=== PATIENT | male | born 1955 | race American Indian/Alaskan Native ===

== ENCOUNTER 2017-10-02 22:12 | Emergency (ER) | payer MEDICAID ==
[2017-10-02 23:57] LABS: Hematocrit 35.6 % (35.5-45.6); Hemoglobin 12.1 gm/dl (11.8-15.2); Mean Corpuscular HGB Conc 34 % (32-34); Mean Corpuscular Hemoglobin 30 pg (28-32); Mean Corpuscular Volume 89 fl (84-94); Platelet Count 248 K/mm3 (140-440); Red Blood Count 3.99 M/mm3 (3.65-5.03); Red Cell Distribution Width 14.3 % (13.2-15.2)
[2017-10-03 00:49] LABS: BUN/Creatinine Ratio 9; Blood Urea Nitrogen 8 mg/dL (9-20); Calcium 9.9 mg/dL (8.4-10.2); Hemolysis Index 3
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
[2017-10-03 04:03] VITALS: BP 158/90
== END 2017-10-03 05:00 | disposition left against medical advice (07) ==
LOC: ED 22:12
DX: M54.2 Cervicalgia (principal); Z53.21 Procedure and treatment not carried out due to patient leaving prior to being seen by health care provider
CPT/HCPCS: 36415; 70450; 70486; 72125; 80048; 85027

== ENCOUNTER 2019-03-22 12:51 | Emergency (ER) | payer OTHER, MEDICAID ==
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
[2019-03-22 13:18] VITALS: BP 171/99
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
== END 2019-03-22 15:16 | disposition home or self-care (01) ==
LOC: ED 12:51
DX: S16.1XXA Strain of muscle, fascia and tendon at neck level, initial encounter (principal); S39.012A Strain of muscle, fascia and tendon of lower back, initial encounter; I10 Essential (primary) hypertension; G43.909 Migraine, unspecified, not intractable, without status migrainosus; Z86.73 Personal history of transient ischemic attack (TIA), and cerebral infarction without residual deficits; Z79.899 Other long term (current) drug therapy; V49.49XA Driver injured in collision with other motor vehicles in traffic accident, initial encounter; Y93.89 Activity, other specified; Y92.410 Unspecified street and highway as the place of occurrence of the external cause; Y99.8 Other external cause status
CPT/HCPCS: 72040; 72100

== ENCOUNTER 2021-01-26 12:04 | Inpatient (IN) | payer MEDICAID, OTHER ==
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
--- NOTE | 2021-01-26 13:02 | Cat Scan Report ---
CT HEAD WITHOUT CONTRAST INDICATION / CLINICAL INFORMATION: left sided weakness, slurred speech. TECHNIQUE: Axial imaging performed from the skull apex through the skull base without the use of cont rast. Sagittal and coronal reformatted images. All CT scans at this location are performed using CT dose reduction for ALARA by means of automated exposure control. COMPARISON: None available. FINDINGS: CEREBRAL PARENCHYMA: Chronic infarct in the left subinsular region measures 1.9 x 0.5 cm. Mild chroni c periventricular white matter changes are noted which are more pronounced on the left side. No acute parenchymal abnormality is appreciated. HEMORRHAGE: None. EXTRA-AXIAL SPACES: Normal in size and morphology for the patient's age. VENTRICULAR SYSTEM: Normal in size and morphology for the patient's age. MIDLINE SHIFT OR HERNIATION: None. CEREBELLUM / BRAINSTEM: No significant abnormality. CALVARIUM: No significant abnormality. ORBITS: Normal as visualized. PARANASAL SINUSES / MASTOID AIR CELLS: Normal as visualized. SOFT TISSUES of HEAD: No significant abnormality. ADDITIONAL FINDINGS: None. IMPRESSION: No acute intracranial abnormality. Chronic infarct in the left subinsular region as described. Signer Name: Chandrakant Mathis Jr, MD Signed: 01/26/2021 12:58 PM Workstation Name: [id number]
[2021-01-26 13:24] LABS: Basophils # (Auto) 0.1 K/mm3 (0.0-0.1); Basophils % (Auto) 0.6 % (0.0-1.8); Eosinophils % (Auto) 0.1 % (0.0-4.3); Hematocrit 28.1 % (35.5-45.6); Hemoglobin 9.1 gm/dl (11.8-15.2); Lymphocytes % (Auto) 6.2 % (13.4-35.0); Mean Corpuscular HGB Conc 32 % (32-34); Mean Corpuscular Volume 86 fl (84-94); Monocytes # (Auto) 1.6 K/mm3 (0.0-0.8); Monocytes % (Auto) 9.6 % (0.0-7.3); Platelet Count 626 K/mm3 (140-440); Red Blood Count 3.28 M/mm3 (3.65-5.03); Red Cell Distribution Width 14.7 % (13.2-15.2)
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
[2021-01-26] MEDS ORDERED: ASPIRIN 81 MG TAB CHEW PO ONE (13:31)
[2021-01-26 13:33] LABS: INR 1.22 (0.87-1.13)
[2021-01-26 13:34] LABS: Partial Thromboplastin Time 40.8 Sec. (24.2-36.6)
[2021-01-26 13:43] LABS: Alanine Aminotransferase 34 units/L (7-56); Albumin 2.4 g/dL (3.9-5); Blood Urea Nitrogen 12 mg/dL (9-20); Calcium 10.3 mg/dL (8.4-10.2); Hemolysis Index 1
--- NOTE | 2021-01-26 13:57 | XRay Report ---
XR chest 1V ap INDICATION / CLINICAL INFORMATION: weakness COMPARISON: None available. FINDINGS: SUPPORT DEVICES: None. HEART / MEDIASTINUM: No significant abnormality. LUNGS / PLEURA: There is complete opacification of the right lung with rightward deviation of the tra carmen. There is opacification the right mainstem bronchus and possible mass occluding it. ADDITIONAL FINDINGS: No significant additional findings. IMPRESSION: 1. Complete opacification the right lung most consistent with atelectasis with suspected mass occludi ng the right mainstem bronchus. Recommend CT chest with contrast for further evaluation. Signer Name: Jaron Sanchez MD Signed: 01/26/2021 1:53 PM Workstation Name: [id number]
[2021-01-26 14:00] LABS: Chol/HDL Ratio 4.33 %
[2021-01-26 14:11] LABS: BUN/Creatinine Ratio 17
[2021-01-26] MEDS ORDERED: SODIUM CHLORIDE 0.9% 1000 ML 1,000 ML IV ONE (14:12)
--- NOTE | 2021-01-26 14:39 | Magnetic Resonance Report ---
MR brain wo con INDICATION / CLINICAL INFORMATION: 65 years Male; stroke symptoms, weakness, slurred speech. TECHNIQUE: Multiplanar, multisequence MR images of the brain were obtained. COMPARISON: None available. FINDINGS: BRAIN / INTRACRANIAL CONTENTS: There is an older infarct along the anterior left basal ganglia. There is otherwise mild to moderate cerebral white matter disease most consistent with microvascular angio dm. The diffusion imaging reveals no evidence of acute infarction. This mild ex vacuo dilatation of the left frontal horn related to old infarct. Otherwise, the ventric ular system appears appropriate in size and configuration. No extra-axial fluid collections or signif icant mass effect is identified at. CRANIOCERVICAL JUNCTION: No significant abnormality. VASCULAR FLOW-VOIDS: No significant abnormality. ORBITS: No significant abnormality of visualized orbits. SINUSES / MASTOIDS: There is a smaller retention cyst along the inferior right maxillary sinus. Mild focal leftward changes seen within the left ethmoid air cells. Fluid signal is also seen along the po sterior and inferior right mastoid air cells. ADDITIONAL FINDINGS: None. IMPRESSION: 1. There is microvascular angiopathy with old infarct involving left basal ganglia as described. Ther e is no evidence of acute infarction. Signer Name: Prateek Zavala MD Signed: 01/26/2021 2:35 PM Workstation Name: [id number]
--- NOTE | 2021-01-26 15:17 | Vascular Lab Report ---
DUPLEX DOPPLER ULTRASOUND CAROTID, BILATERAL INDICATION / CLINICAL INFORMATION: stroke symptoms. Left-sided weakness, dysarthria. COMPARISON: None available. FINDINGS: RIGHT CAROTID: - PLAQUE ESTIMATE (%): < 50% - CCA velocity: 67.8 cm/sec. - ICA peak systolic velocity: 83.0 cm/sec. - ICA/CCA PSV Ratio: 1.22 Right Vertebral Artery: Antegrade flow. LEFT CAROTID: - PLAQUE ESTIMATE: < 50% - CCA velocity: 74.0 cm/sec. - ICA peak systolic velocity: 94.9 cm/sec. - ICA/CCA PSV Ratio: 1.28 Left Vertebral Artery: Antegrade flow. IMPRESSION: 1. Right Internal Carotid Artery: Less than 50% diameter stenosis. 2. Left Internal Carotid Artery: Less than 50% diameter stenosis. Velocity criteria are extrapolated from diameter data as defined by the Society of Radiologists in [facility] Consensus Conference, Radiology 2003; 229;340-346. NO STENOSIS (NORMAL) * Plaque = none; ICA PSV < 125 cm/sec; ICA/CCA PSV Ratio < 2.0 <50% STENOSIS * Plaque < 50%; ICA PSV < 125 cm/sec; ICA/CCA PSV Ratio < 2.0 50-69% STENOSIS * Plaque > 50%; ICA PSV = 125-230 cm/sec; ICA/CCA PSV Ratio = 2.0-4.0 >70% BUT <100% STENOSIS * Plaque > 50%; ICA PSV > 230 cm/sec; ICA/CCA PSV Ratio > 4.0 NEAR OCCLUSION * Plaque = visible lumen; ICA PSV = high/low/none; ICA/CCA PSV Ratio = variable TOTAL OCCLUSION * Plaque = no lumen; ICA PSV = none; ICA/CCA PSV Ratio = N/A Signer Name: Lester Hastings MD Signed: 01/26/2021 3:13 PM Workstation Name: [id number]
--- NOTE | 2021-01-26 15:44 | Cat Scan Report ---
CTA chest with contrast INDICATION : abormal xr 100 ML OMNI 350 . Follow-up abnormal chest x-ray from today TECHNIQUE: Axial imaging performed through the chest, with contrast bolus timing set to maximize opa cification of the pulmonary arteries. 3-plane MIP reformatted images were obtained. All CT scans at this location are performed using CT dose reduction for ALARA by means of automated exposure control. 100 mL of intravenous contrast administered. COMPARISON: Chest x-ray from today FINDINGS: Bolus/PTE: Contrast bolus timing is adequate. There is poor filling of the right lower lobe pulmona ry arterial and venous distribution suggestive of invasive central mass extending into the mediastinu m. Mediastinum: There appears to be an invasive mass along the inferior aspect of the right hilum exten ding into the mediastinum with complete occlusion of the right mainstem bronchus and partial encaseme nt of the right hilar vessels most notably involving the right lower lobe distribution. There appear s to be confluent adenopathy/mass in the mediastinum. Lungs: There is a central mass with postobstructive consolidation involving essentially the entire r ight lung. There is also an underlying moderate-sized pleural effusion. The left lung demonstrates ad vanced emphysema with no consolidation or effusion. Upper abdomen: Limited imaging of the upper abdomen shows nothing acute. There appears to be conflu ent retroperitoneal adenopathy. Bones: Degenerative changes in the spine with nothing acute. IMPRESSION: Central right lung mass with occlusion of the right mainstem bronchus and partial encasem ent of the right lower lobe pulmonary vessels. There is minimal filling of the right lower lobe pulmo nary arterial and venous distribution. Extensive postobstructive pneumonia and pleural effusion also noted on the right. Left lung is clear. Signer Name: Shawn Mohan MD Signed: 01/26/2021 3:39 PM Workstation Name: [email or web address] [id number]
[2021-01-26] MEDS ORDERED: CEFEPIME/NS 2 GM/100 ML 2 GM/100 ML BAG IV ONE (16:11)
[2021-01-26] MEDS ORDERED: VANCOMYCIN PHARMACY TO DOSE IV SCH (17:00)
[2021-01-26 17:10] LABS: ABG Base Excess 1.5 mmol/L (-2.0-3.0); ABG HCO3 25.8 mmol/L (20.0-26.0); ABG Methemoglobin 0.3 % (0.0-1.5); ABG Oxygen Saturation 98.1 % (95.0-99.0); ABG PCO2 39.7 mm Hg; ABG PH 7.431 pH Units (7.350-7.450); ABG PO2 112.6 mm Hg (80.0-90.0)
[2021-01-26] MEDS ORDERED: VANCOMYCIN/NS 1 GM/250 ML 1 GM/250 ML BAG IV ONE (18:00)
[2021-01-27] MEDS ORDERED: NON-FORMULARY EACH (Acetaminophen [Tylenol] 325 MG Capsule) PO PRN (01:02)
[2021-01-27] MEDS ORDERED: ACETAMINOPHEN 325 MG TAB PO PRN (01:04)
[2021-01-27] MEDS ORDERED: oxyCODONE /ACETAMINOPHEN 5-325MG TAB PO PRN (01:04)
[2021-01-27] MEDS ORDERED: ONDANSETRON 4 MG/2 ML INJ IV PRN (01:04)
[2021-01-27] MEDS ORDERED: METOCLOPRAMIDE 10 MG/2 ML INJ IV PRN (01:04)
[2021-01-27] MEDS ORDERED: VANCOMYCIN PHARMACY TO DOSE IV SCH (02:00)
[2021-01-27 05:53] LABS: Basophils # (Auto) 0.1 K/mm3 (0.0-0.1); Basophils % (Auto) 0.4 % (0.0-1.8); Eosinophils % (Auto) 0.3 % (0.0-4.3); Hematocrit 29.8 % (35.5-45.6); Hemoglobin 9.4 gm/dl (11.8-15.2); Lymphocytes # (Auto) 1.3 K/mm3 (1.2-5.4); Lymphocytes % (Auto) 8.6 % (13.4-35.0); Mean Corpuscular HGB Conc 32 % (32-34); Mean Corpuscular Volume 87 fl (84-94); Monocytes # (Auto) 1.4 K/mm3 (0.0-0.8); Monocytes % (Auto) 8.9 % (0.0-7.3); Platelet Count 612 K/mm3 (140-440); Red Blood Count 3.43 M/mm3 (3.65-5.03); Red Cell Distribution Width 14.6 % (13.2-15.2)
[2021-01-27 06:29] LABS: Alanine Aminotransferase 26 units/L (7-56); Albumin 1.9 g/dL (3.9-5); Blood Urea Nitrogen 11 mg/dL (9-20); Calcium 10.2 mg/dL (8.4-10.2); Hemolysis Index 0
[2021-01-27 06:30] LABS: BUN/Creatinine Ratio 22
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
[2021-01-27] MEDS: VANCOMYCIN 750 MG in SODIUM CHLORIDE 0.9% 250ML 250 ML IV SCH ×2 (08:38→17:10)
--- NOTE | 2021-01-27 09:46 | Progress Note ---
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 There is minimal filling of the right lower lobe pulmonary arterial and venous distribution. Extensive postobstructive pneumonia and pleural effusion also noted on the right. Left lung is clear. --Postobstructive pneumonia Current Visit: Yes Status: Acute Patient started on empiric antibiotics cefepime and vancomycin Patient has a right lung mass,Pulmonary evaluated the patient Possible bronchoscopy with biopsy tomorrow --Hyponatremia Current Visit: Yes Status: Acute IV normal saline for now --Right lung mass; Current Visit: Yes Status: Acute With complete atelectasis/collapse of right lung Follow pulmonary evaluation recommendations Possible bronchoscopy and biopsy Heme-onc evaluation if needed pending biopsy -- Left-sided weakness Current Visit: Yes Status: Acute Possible CVA versus TIA Symptoms completely resolved Neuro work-up negative so far Neurology following --?CVA/TIA (cerebrovascular accident) Current Visit: Yes Status: Chronic Has minimal weakness in both her upper extremities and lower extremities. PT/OT. Neurology consult requested. New CVA unlikely clinically. Also MRI rules out any acute infarct. --Anemia Current Visit: Yes Status: Chronic Anemia work-up --Severe protein calorie malnutrition Current Visit: Yes Status: Chronic Dietary supplements , nutrition consult -- DVT prophylaxis Current Visit: Yes Status: Acute On anticoagulation GI prophylaxis We will closely monitor patient and adjust management as needed Data Warehouse Administrator recommendations noted and appreciated Follow rest of the work-up, and treat accordingly Plan of care reviewed with the patient and his nurse I discussed with lead maintenance technician Dr. Ramos History Interval history: I have seen and examined the patient at the bedside, patient's chart and medications reviewed Patient's weakness significantly improved, neuro work-up is negative so far Patient has no new complaints Hospitalist Physical - Constitutional Vitals: Temp Pulse Resp BP Pulse Ox 98.5 F 59 L 18 102/62 96 01/27/21 03:28 01/27/21 04:34 01/27/21 08:20 01/27/21 08:20 01/27/21 08:00 General appearance: Present: no acute distress, well-nourished - EENT Eyes: Present: PERRL, EOM intact - Neck Neck: Present: supple, normal ROM - Respiratory Respiratory effort: other (Mild respiratory distress) Respiratory: right: diminished, negative: rales, rhonchi, wheezing - Cardiovascular Rhythm: regular Heart Sounds: Present: S1 & S2 - Extremities Extremities: no ischemia, No edema - Abdominal General gastrointestinal: soft, non-tender, non-distended, normal bowel sounds - Integumentary Integumentary: Present: clear, warm - Psychiatric Psychiatric: appropriate mood/affect, cooperative - Neurologic Neurologic: CNII-XII intact, moves all extremities HEART Score - HEART Score EKG: Normal Age: 45-65 Troponin: Troponin T < 0.010 ng/mL (0.00-0.029) 01/26/21 13:00 Troponin: 1-3x normal limit - Critical Actions Critical Actions: 0-3 pts:0.9-1.7%risk of adverse cardiac event.Candidate for discharge Results - Labs CBC & Chem 7: 01/27/21 04:46 01/27/21 04:46 Labs: Laboratory Last Values WBC 15.3 K/mm3 (4.5-11.0) H 01/27/21 04:46 RBC 3.43 M/mm3 (3.65-5.03) L 01/27/21 04:46 Hgb 9.4 gm/dl (11.8-15.2) L 01/27/21 04:46 Hct 29.8 % (35.5-45.6) L 01/27/21 04:46 MCV 87 fl (84-94) 01/27/21 04:46 MCH 27 pg (28-32) L 01/27/21 04:46 MCHC 32 % (32-34) 01/27/21 04:46 RDW 14.6 % (13.2-15.2) 01/27/21 04:46 Plt Count 612 K/mm3 (140-440) H 01/27/21 04:46 Lymph % (Auto) 8.6 % (13.4-35.0) L 01/27/21 04:46 [place] % (Auto) 8.9 % (0.0-7.3) H 01/27/21 04:46 Eos % (Auto) 0.3 % (0.0-4.3) 01/27/21 04:46 Baso % (Auto) 0.4 % (0.0-1.8) 01/27/21 04:46 Lymph # (Auto) 1.3 K/mm3 (1.2-5.4) 01/27/21 04:46 [place] # (Auto) 1.4 K/mm3 (0.0-0.8) H 01/27/21 04:46 Eos # (Auto) 0.0 K/mm3 (0.0-0.4) 01/27/21 04:46 Baso # (Auto) 0.1 K/mm3 (0.0-0.1) 01/27/21 04:46 Seg Neutrophils % 81.8 % (40.0-70.0) H 01/27/21 04:46 Seg Neutrophils # 12.5 K/mm3 (1.8-7.7) H 01/27/21 04:46 ESR > 140.0 mm/Hr (0-20) 01/26/21 13:00 PT 16.7 Sec. (12.2-14.9) H 01/26/21 13:00 INR 1.22 (0.87-1.13) H 01/26/21 13:00 APTT 40.8 Sec. (24.2-36.6) H 01/26/21 13:00 ABG pH 7.431 pH Units (7.350-7.450) 01/26/21 17:03 ABG pCO2 39.7 mm Hg 01/26/21 17:03 ABG pO2 112.6 mm Hg (80.0-90.0) H 01/26/21 17:03 ABG HCO3 25.8 mmol/L (20.0-26.0) 01/26/21 17:03 ABG O2 Saturation 98.1 % (95.0-99.0) 01/26/21 17:03 ABG O2 Content 13.2 (0.0-44) 01/26/21 17:03 ABG Base Excess 1.5 mmol/L (-2.0-3.0) 01/26/21 17:03 ABG Hemoglobin 9.6 gm/dl (14.0-18.0) L 01/26/21 17:03 ABG Carboxyhemoglobin 1.9 % (0.0-5.0) 01/26/21 17:03 ABG Methemoglobin 0.3 % (0.0-1.5) 01/26/21 17:03 Oxyhemoglobin 96.0 % (95.0-99.0) 01/26/21 17:03 FiO2 28 % 01/26/21 17:03 Sodium 130 mmol/L (137-145) L 01/27/21 04:46 Potassium 4.6 mmol/L (3.6-5.0) 01/27/21 04:46 Chloride 94.9 mmol/L (98-107) L 01/27/21 04:46 Carbon Dioxide 23 mmol/L (22-30) 01/27/21 04:46 Anion Gap 17 mmol/L 01/27/21 04:46 BUN 11 mg/dL (9-20) 01/27/21 04:46 Creatinine 0.5 mg/dL (0.8-1.3) L 01/27/21 04:46 Estimated GFR > 60 ml/min 01/27/21 04:46 BUN/Creatinine Ratio 22 % 01/27/21 04:46 Glucose 84 mg/dL (75-100) 01/27/21 04:46 Lactic Acid 1.60 mmol/L (0.7-2.0) 01/26/21 17:24 Calcium 10.2 mg/dL (8.4-10.2) 01/27/21 04:46 Total Bilirubin 0.60 mg/dL (0.1-1.2) 01/27/21 04:46 AST 32 units/L (5-40) 01/27/21 04:46 ALT 26 units/L (7-56) 01/27/21 04:46 Alkaline Phosphatase 170 units/L (35-129) H 01/27/21 04:46 Troponin T < 0.010 ng/mL (0.00-0.029) 01/26/21 13:00 Total Protein 6.2 g/dL (6.3-8.2) L 01/27/21 04:46 Albumin 1.9 g/dL (3.9-5) L 01/27/21 04:46 Albumin/Globulin Ratio 0.4 % 01/27/21 04:46 Triglycerides 78 mg/dL (2-149) 01/26/21 13:32 Cholesterol 78 mg/dL (50-199) 01/26/21 13:32 LDL Cholesterol Direct 43 mg/dL (50-130) L 01/26/21 13:32 HDL Cholesterol 18 mg/dL (40-59) L 01/26/21 13:32 Cholesterol/HDL Ratio 4.33 % 01/26/21 13:32 Microbiology: Microbiology 01/26/21 17:24 Peripheral/Venous Blood Culture - Preliminary Culture in Progress 01/26/21 17:24 Peripheral/Venous Blood Culture - Preliminary Culture in Progress Evans/IV: Voiding Method Urinal Active Medications - Current Medications Current Medications: Generic Name Dose Route Start Last Admin Trade Name Freq PRN Reason Stop Dose Admin Acetaminophen 650 mg 01/27/21 01:04 Acetaminophen 325 Mg Tab PO Q4H PRN Pain MILD(1-3)/Fever >100.5/[place] Clonidine HCl 0.2 mg 01/27/21 10:00 Clonidine Tts 0.2 Mg/24 Hr Patch TD Th [facility] Gabapentin 300 mg 01/27/21 22:00 Gabapentin 300 Mg Cap PO QHS [facility] Heparin Sodium (Porcine) 5,000 unit 01/27/21 01:15 Heparin 5,000 Unit/1 Ml Vial SUB-Q Q12HR [facility] Hydromorphone HCl 0.5 mg 01/27/21 01:04 Hydromorphone 1 Mg/1 Ml Inj IV Q3H PRN Pain , Severe (7-10) Sodium Chloride 1,000 mls @ 75 mls/hr 01/27/21 01:15 Nacl 0.9% 1000 Ml IV DIRECT [facility] Cefepime HCl 2 gm in 100 mls @ 200 mls/hr 01/27/21 02:00 Cefepime/Ns 2 Gm/100 Ml IV Q8H [facility] Protocol Vancomycin HCl 750 mg/ Sodium 265 mls @ 166.667 mls/hr 01/27/21 06:00 1 08:38 Chloride IV 166.667 mls/hr Q12H [facility] Administration Methocarbamol 500 mg 01/27/21 10:00 Methocarbamol 500 Mg Tab PO BID [facility] Metoclopramide HCl 10 mg 10/21/21 01:04 Metoclopramide 10 Mg/2 Ml Inj IV Q6H PRN Nausea And Vomiting Nortriptyline HCl 75 mg 01/27/21 22:00 Nortriptyline 25 Mg Cap PO QHS [facility] Ondansetron HCl 4 mg 01/27/21 01:04 Ondansetron 4 Mg/2 Ml Inj IV Q8H PRN Nausea And Vomiting Oxycodone/Acetaminophen 1 tab 01/27/21 01:04 Oxycodone /Acetaminophen 5-325mg Tab PO Q6H PRN Pain, Moderate (4-6) Sodium Chloride 10 ml 01/27/21 10:00 Sodium Chloride 0.9% 10 Ml Flush Syringe IV BID [facility] Sodium Chloride 10 ml 01/27/21 01:04 Sodium Chloride 0.9% 10 Ml Flush Syringe IV PRN PRN LINE FLUSH
[2021-01-27] MEDS: HEPARIN 5,000 UNIT/1 ML VIAL SUB-Q SCH ×2 (09:59→22:37)
[2021-01-27] MEDS: CEFEPIME/NS 2 GM/100 ML 2 GM/100 ML BAG IV SCH ×3 (10:00→17:10)
[2021-01-27] MEDS ORDERED: cloNIDine TTS 0.2 MG/24 HR PATCH TD SCH (10:00)
--- NOTE | 2021-01-27 11:44 | Magnetic Resonance Report ---
MRI BRAIN WITHOUT AND WITH CONTRAST INDICATION / CLINICAL INFORMATION: Seizure disorder, WEAKNESS, SLURRED SPEECH Patient motion(coughing) during scan, best possible exam, repeated scans.. TECHNIQUE: Multisequence, multiplanar images were obtained. 15 cc of clariscan for postcontrast imaging. COMPARISON: Noncontrast MR brain and CT brain performed yesterday. FINDINGS: CEREBRAL and CEREBELLAR HEMISPHERES: No evidence of mass or mass effect. No midline shift. No acute hemorrhage. No diffusion restriction to suggest acute infarct. No extra-axial fluid collection. M ild volume loss and mild to moderate chronic ischemic changes in the white matter are again noted. Ch ronic focal infarct in the left basal ganglia/left subinsular region is also again noted measuring up to 1.9 x 0.8 cm. There is no evidence for abnormal enhancement following IV gadolinium. Arterial and venous structures appear patent. Medial temporal lobes appear symmetric and unremarkable VENTRICLES: Normal in size and configuration for age. VISUALIZED ORBITS: No significant abnormality. VISUALIZED PARANASAL SINUSES: No significant abnormality. ADDITIONAL FINDINGS: None. IMPRESSION: No acute intracranial abnormality or abnormal enhancement following IV gadolinium. Volume loss and chronic white matter changes. Chronic focal infarct in the left basal ganglia region. Signer Name: Chandrakant Mathis Jr, MD Signed: 01/27/2021 11:40 AM Workstation Name: [id number]
--- NOTE | 2021-01-27 11:53 | Electrocardiograph Report ---
[facility] Test Date: 2021-01-26 Test Time: 13:06:42 Pat Name: SAVANNA PAREKH Department: Room: A476 Gender: M [place] Paver Operator: BLANQUITA : 1955 Requested By: BERNABE STEVENSON Order Number: [id number] Reading MD: Mickey Garcia Measurements Intervals [place] Rate: 119 P: 71 IN: 148 QRS: 71 QRSD: 86 T: 62 QT: 291 QTc: 409 Interpretive Statements Sinus tachycardia Multiple premature complexes, vent & supraven Probable left atrial enlargement non specfici st-t No previous ECG available for comparison Electronically Signed On 01-27-2021 11:53:28 EDT by Mickey Garcia
--- NOTE | 2021-01-27 12:32 | Consultation ---
History of Present Illness Consult date: 01/27/21 Requesting physician: PHUONG CLINTON Reason for consult: abnormal CXR/CT History of present illness: 65 y/o male presented to the ED with left sided weakness. During work, CXR was done which showed complete collapse of right lung. CT done showing potential mass in right mainstem. Pulmonary consulted for this. Per patient has lost a lot of weight over the last 2 months. Denies hemoptysis, fevers or night sweats. Has smoked 40+ years and wants to quit. Medications and Allergies Allergies Allergy/AdvReac Type Severity Reaction Status Date / Time No Known Allergies Allergy Verified 01/27/21 05:21 Home Medications Medication Instructions Recorded Confirmed Last Taken Type Gabapentin 300 mg PO QHS 02/12/13 04/18/15 Unknown History Nortriptyline (Nf) [Pamelor] 75 mg PO QHS 02/12/13 04/18/15 Unknown History SUMAtriptan SUCCINATE [Imitrex] 50 mg PO QHS 02/12/13 04/18/15 Unknown History Ciprofloxacin HCl [Ciprofloxacin 500 mg PO Q12HR #14 tab 04/18/15 Unknown Rx TAB] Ibuprofen [Motrin 800 MG tab] 800 mg PO Q8HR PRN #30 tablet 04/18/15 Unknown Rx cephALEXin [Keflex] 500 mg PO Q6HR #20 capsule 04/18/15 Unknown Rx cloNIDine-TTS PATCH [Catapres-Tts 1 patch TD Q7D 04/18/15 04/18/15 Unknown History Patch] traMADoL [Ultram 50 MG tab] 50 mg PO Q6HR PRN #20 tablet 05/11/15 Unknown Rx Acetaminophen/Codeine [Tylenol 1 tab PO Q6H PRN #15 tab 05/19/15 Unknown Rx /Codeine # 3 tab] methOCARBAMOL [Robaxin TAB] 500 mg PO BID #20 tab 05/19/15 Unknown Rx Acetaminophen [Tylenol] 650 mg PO Q8HR PRN #24 capsule 03/22/19 Unknown Rx Tizanidine HCl [Zanaflex 2mg CAP] 2 mg PO QHS PRN #10 capsule 03/22/19 Unknown Rx Active Meds: Active Medications Acetaminophen (Acetaminophen 325 Mg Tab) 650 mg PO Q4H PRN PRN Reason: Pain MILD(1-3)/Fever >100.5/[place] Aspirin (Aspirin 325 Mg Tab) 325 mg PO QDAY [facility] Gabapentin (Gabapentin 300 Mg Cap) 300 mg PO QHS [facility] Heparin Sodium (Porcine) (Heparin 5,000 Unit/1 Ml Vial) 5,000 unit SUB-Q Q12HR [facility] Last Admin: 01/27/21 09:59 Dose: 5,000 unit Documented by: Hydromorphone HCl (Hydromorphone 1 Mg/1 Ml Inj) 0.5 mg IV Q3H PRN PRN Reason: Pain , Severe (7-10) Sodium Chloride (Nacl 0.9% 1000 Ml) 1,000 mls @ 75 mls/hr IV DIRECT SILVIA Cefepime HCl (Cefepime/Ns 2 Gm/100 Ml) 2 gm in 100 mls @ 200 mls/hr IV Q8H [facility]; Protocol Last Admin: 01/27/21 10:09 Dose: 200 mls/hr Documented by: Vancomycin HCl 750 mg/ Sodium (Chloride) 265 mls @ 166.667 mls/hr IV Q12H [facility] Last Admin: 01/27/21 08:38 Dose: 166.667 mls/hr Documented by: Methocarbamol (Methocarbamol 500 Mg Tab) 500 mg PO BID [facility] Last Admin: 01/27/21 09:59 Dose: Not Given Documented by: Metoclopramide HCl (Metoclopramide 10 Mg/2 Ml Inj) 10 mg IV Q6H PRN PRN Reason: Nausea And Vomiting Nortriptyline HCl (Nortriptyline 25 Mg Cap) 75 mg PO QHS [facility] Ondansetron HCl (Ondansetron 4 Mg/2 Ml Inj) 4 mg IV Q8H PRN PRN Reason: Nausea And Vomiting Oxycodone/Acetaminophen (Oxycodone /Acetaminophen 5-325mg Tab) 1 tab PO Q6H PRN PRN Reason: Pain, Moderate (4-6) Sodium Chloride (Sodium Chloride 0.9% 10 Ml Flush Syringe) 10 ml IV BID [facility] Last Admin: 01/27/21 09:57 Dose: 10 ml Documented by: Sodium Chloride (Sodium Chloride 0.9% 10 Ml Flush Syringe) 10 ml IV PRN PRN PRN Reason: LINE FLUSH Review of Systems Constitutional: weight loss, anorexia, weakness, poor appetite Physical Examination Vital signs: Vital Signs Temp Pulse Resp BP Pulse Ox 97.6 F 66 20 104/64 99 01/26/21 12:10 01/26/21 12:10 01/26/21 12:10 01/26/21 12:10 01/26/21 12:10 General appearance: other (appears much older than stated age) Eyes: non-icteric ENT: oropharynx moist Neck: supple Effort: normal Ascultation: Right: diminished breath sounds, Left: clear Percussion: Right: dull Results - Laboratory Findings CBC and BMP: 01/27/21 04:46 01/27/21 04:46 ABG ABG pH 7.431 pH Units (7.350-7.450) 01/26/21 17:03 ABG pCO2 39.7 mm Hg 01/26/21 17:03 ABG pO2 112.6 mm Hg (80.0-90.0) H 01/26/21 17:03 ABG O2 Saturation 98.1 % (95.0-99.0) 01/26/21 17:03 PT/INR, D-dimer PT 16.7 Sec. (12.2-14.9) H 01/26/21 13:00 INR 1.22 (0.87-1.13) H 01/26/21 13:00 Abnormal lab findings: Abnormal Labs 01/26/21 01/26/21 01/26/21 13:00 13:00 13:00 WBC 16.7 H RBC 3.28 L Hgb 9.1 L Hct 28.1 L MCH Plt Count 626 H Lymph % (Auto) 6.2 L [place] % (Auto) 9.6 H Lymph # (Auto) 1.0 L [place] # (Auto) 1.6 H Seg Neutrophils % 83.5 H Seg Neutrophils # 13.9 H PT 16.7 H INR 1.22 H APTT 40.8 H ABG pO2 ABG Hemoglobin Sodium 127 L Chloride 89.3 L Creatinine 0.7 L Glucose 121 H Calcium 10.3 H AST 47 H Alkaline Phosphatase 204 H Total Protein Albumin 2.4 L LDL Cholesterol Direct HDL Cholesterol 01/26/21 01/26/21 01/27/21 13:32 17:03 04:46 WBC 15.3 H RBC 3.43 L Hgb 9.4 L Hct 29.8 L MCH 27 L Plt Count 612 H Lymph % (Auto) 8.6 L [place] % (Auto) 8.9 H Lymph # (Auto) [place] # (Auto) 1.4 H Seg Neutrophils % 81.8 H Seg Neutrophils # 12.5 H PT INR APTT ABG pO2 112.6 H ABG Hemoglobin 9.6 L Sodium Chloride Creatinine Glucose Calcium AST Alkaline Phosphatase Total Protein Albumin LDL Cholesterol Direct 43 L HDL Cholesterol 18 L 01/27/21 04:46 WBC RBC Hgb Hct MCH Plt Count Lymph % (Auto) [place] % (Auto) Lymph # (Auto) [place] # (Auto) Seg Neutrophils % Seg Neutrophils # PT INR APTT ABG pO2 ABG Hemoglobin Sodium 130 L Chloride 94.9 L Creatinine 0.5 L Glucose Calcium AST Alkaline Phosphatase 170 H Total Protein 6.2 L Albumin 1.9 L LDL Cholesterol Direct HDL Cholesterol Assessment and Plan 65 y/o smoker with emphysema and right lung mass, very proximal in the right mainstem with complete lung collapse 1. Bronch with biopsy 2. Discussed with patient at bedside 3. Await neurology work up and to make sure no edema/swelling as the likelihood of herniation increases with bronch 4. Guarded to poor prognosis
--- NOTE | 2021-01-27 16:12 | Cat Scan Report ---
CTA NECK WITH CONTRAST 01/27/2021 INDICATION / CLINICAL INFORMATION: CVA OMNI 350 100. COMPARISON: None. TECHNIQUE: Routine CTA of the neck is performed. 3-D/MIP reformats were postprocessed. Percentage st enosis is determined by direct quantitative measurements of diseased internal carotid artery diameter compared with normal distal internal carotid artery reference segments or by criteria similar to JARON CET where applicable. All CT scans at this location are performed using CT dose reduction for ALARA b y means of automated exposure control. CONTRAST: 100 ml of Omnipaque 350 FINDINGS: Carotid bifurcations: No evidence of carotid bifurcation stenosis. Carotid arteries: No significant abnormality. Cervical vertebral arteries: No significant abnormality. Aortic arch: No significant abnormality. Significant abnormality of the right hemithorax, described in detail on the previous chest CT from . IMPRESSION: No significant vascular abnormality. Signer Name: Scooter Capone MD Signed: 01/27/2021 4:07 PM Workstation Name: [id number]
--- NOTE | 2021-01-27 16:14 | Cat Scan Report ---
CTA HEAD WITH CONTRAST and 2120 HISTORY: CVA OMNI 350 100. COMPARISON: None. TECHNIQUE: All CT scans at this location are performed using CT dose reduction for ALARA by means of automated exposure control.. 3-D/MIP reformats postprocessed. Percentage stenosis is determined by d irect quantitative measurements of diseased internal carotid artery diameter compared with normal dis gonzalez internal carotid artery reference segments or by criteria similar to NASCET where applicable. CONTRAST: 100 ml of Omnipaque 350 FINDINGS: CTA HEAD: Intracranial vertebral arteries: No significant abnormality. Basilar artery: No significant abnormality. Posterior cerebral arteries: No significant abnormality. Intracranial internal carotid arteries: No significant abnormality. Anterior cerebral arteries: No significant abnormality. Middle cerebral arteries: No significant abnormality. Dural venous sinuses:Not optimally opacified. No significant abnormality. Additional findings: None. IMPRESSION: 1. No significant abnormality. Signer Name: Scooter Capone MD Signed: 01/27/2021 4:09 PM Workstation Name: [id number]
--- NOTE | 2021-01-27 16:17 | Cat Scan Report ---
CT abdomen pelvis wo con INDICATION: Work-up [right lung mass] rec by pulm. TECHNIQUE: All CT scans at this location are performed using CT dose reduction for ALARA by means of automated e xposure control. COMPARISON: CTA chest on 01/26/2021 FINDINGS: Right basilar mass and associated pleural effusion appears unchanged. The liver, gallbladder, kidneys, pancreas, spleen, and adrenal glands demonstrate no appreciable sign ificant abnormality. No acute bowel abnormalities are identified. There is atherosclerotic calcificat ion in the abdominal aorta and bilateral iliac arteries without aneurysm. There is no free fluid. The re is contrast in the bladder from a prior exam. No aggressive appearing bone lesions are seen. IMPRESSION: 1. Limited exam without contrast without evidence of metastatic disease in the abdomen or pelvis. No definite acute findings. Signer Name: Salvador Garland MD Signed: 01/27/2021 4:12 PM Workstation Name: [id number]
[2021-01-27] MEDS: ASPIRIN 325 MG TAB PO SCH (18:32)
[2021-01-27] MEDS ORDERED: NORTRIPTYLINE 75 MG PO SCH (22:00)
[2021-01-27] MEDS: NORTRIPTYLINE 25 MG CAP PO SCH (22:37)
[2021-01-27] MEDS: GABAPENTIN 300 MG CAP PO SCH (22:37)
[2021-01-28] MEDS: CEFEPIME/NS 2 GM/100 ML 2 GM/100 ML BAG IV SCH ×2 (02:35→13:36)
[2021-01-28] MEDS ORDERED: dilTIAZem 25 MG/5 ML INJ IV ONE (04:43)
[2021-01-28] MEDS: VANCOMYCIN 750 MG in SODIUM CHLORIDE 0.9% 250ML 250 ML IV SCH ×2 (06:33→18:11)
[2021-01-28] MEDS: HEPARIN 5,000 UNIT/1 ML VIAL SUB-Q SCH ×3 (08:40→22:52)
[2021-01-28] MEDS: HYDROmorphone 1 MG/1 ML INJ IV PRN ×2 (09:00→13:20)
[2021-01-28 09:54] LABS: Blood Urea Nitrogen 10 mg/dL (9-20); Calcium 9.5 mg/dL (8.4-10.2); Hemolysis Index 0
[2021-01-28 09:58] LABS: BUN/Creatinine Ratio 28
[2021-01-28 10:26] LABS: Hematocrit 24.6 % (35.5-45.6); Hemoglobin 8.5 gm/dl (11.8-15.2); Mean Corpuscular HGB Conc 35 % (32-34); Mean Corpuscular Volume 85 fl (84-94); Platelet Count 522 K/mm3 (140-440); Red Blood Count 2.89 M/mm3 (3.65-5.03); Red Cell Distribution Width 14.8 % (13.2-15.2)
--- NOTE | 2021-01-28 10:30 | Progress Note ---
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 There is minimal filling of the right lower lobe pulmonary arterial and venous distribution. Extensive postobstructive pneumonia and pleural effusion also noted on the right. Left lung is clear. --Postobstructive pneumonia Current Visit: Yes Status: Acute Patient started on empiric antibiotics cefepime and vancomycin Patient has a right lung mass,Pulmonary evaluated the patient Possible bronchoscopy with biopsy tomorrow --Hyponatremia Current Visit: Yes Status: Acute IV normal saline for now --Right lung mass; Current Visit: Yes Status: Acute With complete atelectasis/collapse of right lung Follow pulmonary evaluation recommendations Possible bronchoscopy and biopsy Heme-onc evaluation if needed pending biopsy -- Left-sided weakness Current Visit: Yes Status: Acute Possible CVA versus TIA Symptoms completely resolved Neuro work-up negative so far Neurology following --?CVA/TIA (cerebrovascular accident) Current Visit: Yes Status: Chronic Has minimal weakness in both her upper extremities and lower extremities. PT/OT. Neurology consult requested. New CVA unlikely clinically. Also MRI rules out any acute infarct. --Anemia Current Visit: Yes Status: Chronic Anemia work-up --Severe protein calorie malnutrition Current Visit: Yes Status: Chronic Dietary supplements , nutrition consult -- DVT prophylaxis Current Visit: Yes Status: Acute On anticoagulation GI prophylaxis We will closely monitor patient and adjust management as needed Project Construction Manager recommendations noted and appreciated Follow rest of the work-up, and treat accordingly 01/28/21 Patient with postobstructive pneumonia. Right lung mass. For bronchoscopy and biopsy by Pulmonology. History Interval history: left sided weakness Hospitalist Physical - Physical exam Narrative exam: Gen: Not in acute distress, cachetic, malnourished HEENT:Normocephalic,atraumatic Neck:supple, No JVD Lungs: Decreased breath sounds right lung, no wheeze Heart:S1 and S2 reg, no murmurs, rubs or gallop Abd:soft, non tender, non distended, normal bowel sounds Ext; No edema, no clubbing, no cyanosis Neuro:Awake,alert,oriented X 3, left sided weakness - Constitutional Vitals: Temp Pulse Resp BP Pulse Ox 97.9 F 105 H 16 107/73 100 01/28/21 08:14 01/28/21 08:14 01/28/21 08:14 01/28/21 08:14 01/28/21 08:14 General appearance: Present: no acute distress, cachectic HEART Score - HEART Score EKG: Normal Age: 45-65 Troponin: Troponin T < 0.010 ng/mL (0.00-0.029) 01/26/21 13:00 Troponin: 1-3x normal limit - Critical Actions Critical Actions: 0-3 pts:0.9-1.7%risk of adverse cardiac event.Candidate for discharge Results - Labs CBC & Chem 7: 01/28/21 08:51 01/28/21 08:51 Labs: Laboratory Last Values WBC 12.9 K/mm3 (4.5-11.0) H 01/28/21 08:51 RBC 2.89 M/mm3 (3.65-5.03) L 01/28/21 08:51 Hgb 8.5 gm/dl (11.8-15.2) L 01/28/21 08:51 Hct 24.6 % (35.5-45.6) L 01/28/21 08:51 MCV 85 fl (84-94) 01/28/21 08:51 MCH 29 pg (28-32) 01/28/21 08:51 MCHC 35 % (32-34) H 01/28/21 08:51 RDW 14.8 % (13.2-15.2) 01/28/21 08:51 Plt Count 522 K/mm3 (140-440) H 01/28/21 08:51 Lymph % (Auto) 8.6 % (13.4-35.0) L 01/27/21 04:46 [place] % (Auto) 8.9 % (0.0-7.3) H 01/27/21 04:46 Eos % (Auto) 0.3 % (0.0-4.3) 01/27/21 04:46 Baso % (Auto) 0.4 % (0.0-1.8) 01/27/21 04:46 Lymph # (Auto) 1.3 K/mm3 (1.2-5.4) 01/27/21 04:46 [place] # (Auto) 1.4 K/mm3 (0.0-0.8) H 01/27/21 04:46 Eos # (Auto) 0.0 K/mm3 (0.0-0.4) 01/27/21 04:46 Baso # (Auto) 0.1 K/mm3 (0.0-0.1) 01/27/21 04:46 Seg Neutrophils % 81.8 % (40.0-70.0) H 01/27/21 04:46 Seg Neutrophils # 12.5 K/mm3 (1.8-7.7) H 01/27/21 04:46 ESR > 140.0 mm/Hr (0-20) 01/26/21 13:00 PT 16.7 Sec. (12.2-14.9) H 01/26/21 13:00 INR 1.22 (0.87-1.13) H 01/26/21 13:00 APTT 40.8 Sec. (24.2-36.6) H 01/26/21 13:00 ABG pH 7.431 pH Units (7.350-7.450) 01/26/21 17:03 ABG pCO2 39.7 mm Hg 01/26/21 17:03 ABG pO2 112.6 mm Hg (80.0-90.0) H 01/26/21 17:03 ABG HCO3 25.8 mmol/L (20.0-26.0) 01/26/21 17:03 ABG O2 Saturation 98.1 % (95.0-99.0) 01/26/21 17:03 ABG O2 Content 13.2 (0.0-44) 01/26/21 17:03 ABG Base Excess 1.5 mmol/L (-2.0-3.0) 01/26/21 17:03 ABG Hemoglobin 9.6 gm/dl (14.0-18.0) L 01/26/21 17:03 ABG Carboxyhemoglobin 1.9 % (0.0-5.0) 01/26/21 17:03 ABG Methemoglobin 0.3 % (0.0-1.5) 01/26/21 17:03 Oxyhemoglobin 96.0 % (95.0-99.0) 01/26/21 17:03 FiO2 28 % 01/26/21 17:03 Sodium 131 mmol/L (137-145) L 01/28/21 08:51 Potassium 4.8 mmol/L (3.6-5.0) 01/28/21 08:51 Chloride 97.4 mmol/L (98-107) L 01/28/21 08:51 Carbon Dioxide 26 mmol/L (22-30) 01/28/21 08:51 Anion Gap 12 mmol/L 01/28/21 08:51 BUN 10 mg/dL (9-20) 01/28/21 08:51 Creatinine 0.4 mg/dL (0.8-1.3) L 01/28/21 08:51 Estimated GFR > 60 ml/min 01/28/21 08:51 BUN/Creatinine Ratio 28 % 01/28/21 08:51 Glucose 102 mg/dL (75-100) H 01/28/21 08:51 Lactic Acid 1.60 mmol/L (0.7-2.0) 01/26/21 17:24 Calcium 9.5 mg/dL (8.4-10.2) 01/28/21 08:51 Total Bilirubin 0.60 mg/dL (0.1-1.2) 01/27/21 04:46 AST 32 units/L (5-40) 01/27/21 04:46 ALT 26 units/L (7-56) 01/27/21 04:46 Alkaline Phosphatase 170 units/L (35-129) H 01/27/21 04:46 Troponin T < 0.010 ng/mL (0.00-0.029) 01/26/21 13:00 Total Protein 6.2 g/dL (6.3-8.2) L 01/27/21 04:46 Albumin 1.9 g/dL (3.9-5) L 01/27/21 04:46 Albumin/Globulin Ratio 0.4 % 01/27/21 04:46 Triglycerides 78 mg/dL (2-149) 01/26/21 13:32 Cholesterol 78 mg/dL (50-199) 01/26/21 13:32 LDL Cholesterol Direct 43 mg/dL (50-130) L 01/26/21 13:32 HDL Cholesterol 18 mg/dL (40-59) L 01/26/21 13:32 Cholesterol/HDL Ratio 4.33 % 01/26/21 13:32 Microbiology: Microbiology 01/26/21 17:24 Peripheral/Venous Blood Culture - Preliminary NO GROWTH AFTER 24 HOURS 01/26/21 17:24 Peripheral/Venous Blood Culture - Preliminary NO GROWTH AFTER 24 HOURS Evans/IV: Voiding Method Urinal Active Medications - Current Medications Current Medications: Generic Name Dose Route Start Last Admin Trade Name Freq PRN Reason Stop Dose Admin Acetaminophen 650 mg 01/27/21 01:04 Acetaminophen 325 Mg Tab PO Q4H PRN Pain MILD(1-3)/Fever >100.5/[place] Aspirin 325 mg 01/27/21 13:00 01/27/21 18:32 Aspirin 325 Mg Tab PO Not Given QDAY [facility] Gabapentin 300 mg 01/27/21 22:00 01/27/21 22:37 Gabapentin 300 Mg Cap PO 300 mg QHS [facility] Administration Heparin Sodium (Porcine) 5,000 unit 01/27/21 01:15 01/28/21 08:40 Heparin 5,000 Unit/1 Ml Vial SUB-Q Not Given Q12HR [facility] Hydromorphone HCl 0.5 mg 01/27/21 01:04 Hydromorphone 1 Mg/1 Ml Inj IV Q3H PRN Pain , Severe (7-10) Sodium Chloride 1,000 mls @ 75 mls/hr 01/27/21 01:15 Nacl 0.9% 1000 Ml IV DIRECT [facility] Vancomycin HCl 750 mg/ Sodium 265 mls @ 166.667 mls/hr 01/27/21 06:00 01/28/21 06:33 Chloride IV 166.667 mls/hr Q12H [facility] Administration Cefepime HCl 2 gm in 100 mls @ 200 mls/hr 01/28/21 14:00 Cefepime/Ns 2 Gm/100 Ml IV Q12H [facility] Protocol Methocarbamol 500 mg 01/27/21 10:00 01/27/21 22:36 Methocarbamol 500 Mg Tab PO 500 mg BID [facility] Administration Metoclopramide HCl 10 mg 01/27/21 01:04 Metoclopramide 10 Mg/2 Ml Inj IV Q6H PRN Nausea And Vomiting Nortriptyline HCl 75 mg 01/27/21 22:00 01/27/21 22:37 Nortriptyline 25 Mg Cap PO 75 mg QHS [facility] Administration Ondansetron HCl 4 mg 01/27/21 01:04 Ondansetron 4 Mg/2 Ml Inj IV Q8H PRN Nausea And Vomiting Oxycodone/Acetaminophen 1 tab 01/27/21 01:04 Oxycodone /Acetaminophen 5-325mg Tab PO Q6H PRN Pain, Moderate (4-6) Sodium Chloride 10 ml 01/27/21 10:00 01/27/21 22:40 Sodium Chloride 0.9% 10 Ml Flush Syringe IV 10 ml BID [facility]IL[facility] Administration Sodium Chloride 10 ml 01/27/21 01:04 Sodium Chloride 0.9% 10 Ml Flush Syringe IV PRN PRN LINE FLUSH Nutrition/Malnutrition Assess - Dietary Evaluation Nutrition/Malnutrition Findings: Nutrition Notes Start: 01/27/21 09:02 Freq: Status: Active Protocol: Document 01/27/21 09:02 JESSICA (Rec: 01/27/21 10:32 JESSCIA [id number]) Nutrition Notes Need for Assessment generated from: Low BMI Initial or Follow up Assessment Current Diagnosis Hypertension,Malnutrition, Stroke Other Pertinent Diagnosis Postobstructive pneumonia, anemia, Minor stroke Current Diet Regular Diet (since B 01/27). Labs/Tests 01/27: Na 130, Cl 94.9, Cr 0.5 . Pertinent Medications 01/27: Nutritionally unremarkable. Height 6 ft Weight 54.43 kg [place] Body Weight (kg) 80.90 BMI 16.2 Weight Status Underweight Subjective/Other Information Diagnosis of Chronic moderate malnutrition and anemia. Percent of energy/protein needs met: Prescribed Regular Diet provides for energy/protein needs (2,289 Kcal/89 g) during LOS. Burn Absent Trauma Absent GI Symptoms None Food Allergy No Skin Integrity/Comment Clear, warm, dry. Current % PO Good (75-100%) #1 Nutrition Diagnosis Predicted suboptimal energy intake,Malnutrition, Underweight,Food and nutrition -related knowledge deficit Comments: Current diagnosis of Chronic moderate malnutrition and anemia. Etiology Unknown at the time. As Evidenced by Signs and Symptoms Low BMI, abnormal chemistry lab values, MD diagnoses. Is patient on ventilator? No Is Patient Ambulatory and/or Out of Bed Yes REE-([facility]-ambulatory/OOB) [ 1790.490 NUTR.[id number]] Kcal/Kg value to use for calculation 40 Approximate Energy Requirements Using 2177 kcal/Kg Calculation Used for Recommendations Kcal/kg Additional Notes Protein: 1.2-1.5 g/Kg/day; 97- 122 g/day; 388-488 Kcal/day ( from IBW). Fluids: 1.0 ml/Kcal/day, or as per MD. Nutrition Intervention Change Diet Order: Continue Regular Diet. Teaching Recipient Patient Learning Readiness Fair Teaching Methods Discussion,Handout Response to Teaching Reinforcement needed Education Handouts Provided AND: General, Healthful Mediterranean Nutrition Therapy. Barriers to Learning Motivation RD phone number provided Yes Patient aware of follow up options Yes Goal #1 Maintain body weight within +/ -3% of current BWt during LOS. Goal #2 Reach and maintain acceptable chemistry lab values during LOS. Goal #3 Provide Pt with educational tools to elicit behavioral changes towards a healthy lifestyle. Follow-Up By: 02/03/21 Additional Comments Continue monitoring acceptance of foods, %PO intake of meals , hydration, and BM.
--- NOTE | 2021-01-28 11:13 | Progress Note ---
Assessment and Plan 65 y/o smoker with emphysema and right lung mass, very proximal in the right mainstem with complete lung collapse 01/28/21: Bronch on Sunday. Wean FiO2 as tolerated. ABX. 1. Bronch with biopsy 2. Discussed with patient at bedside 3. Await neurology work up and to make sure no edema/swelling as the likelihood of herniation increases with bronch 4. Guarded to poor prognosis Subjective Date of service: 01/28/21 Interval history: No acute events. Objective Vital Signs - 12hr 01/27/21 01/28/21 01/28/21 23:37 00:00 03:12 Temperature 98.3 F 98.1 F Pulse Rate 60 115 H 61 Respiratory 19 21 Rate Blood Pressure 116/69 107/60 O2 Sat by Pulse 100 100 Oximetry 01/28/21 08:14 Temperature 97.9 F Pulse Rate 105 H Respiratory 16 Rate Blood Pressure 107/73 O2 Sat by Pulse 100 Oximetry Constitutional: other (appears much older than stated age) Eyes: non-icteric ENT: oropharynx moist Neck: supple Effort: normal Ascultation: Right: diminished breath sounds, Left: clear Percussion: Right: dull Gastrointestinal: normoactive bowel sounds Integumentary: normal CBC and BMP: 01/28/21 08:51 01/28/21 08:51 ABG, PT/INR, D-dimer: ABG ABG pH 7.431 pH Units (7.350-7.450) 01/26/21 17:03 ABG pCO2 39.7 mm Hg 01/26/21 17:03 ABG pO2 112.6 mm Hg (80.0-90.0) H 01/26/21 17:03 ABG O2 Saturation 98.1 % (95.0-99.0) 01/26/21 17:03 PT/INR, D-dimer PT 16.7 Sec. (12.2-14.9) H 01/26/21 13:00 INR 1.22 (0.87-1.13) H 01/26/21 13:00 Abnormal lab findings: Abnormal Labs 01/26/21 01/26/21 01/26/21 13:00 13:00 13:00 WBC 16.7 H RBC 3.28 L Hgb 9.1 L Hct 28.1 L MCH MCHC Plt Count 626 H Lymph % (Auto) 6.2 L [place] % (Auto) 9.6 H Lymph # (Auto) 1.0 L [place] # (Auto) 1.6 H Seg Neutrophils % 83.5 H Seg Neutrophils # 13.9 H PT 16.7 H INR 1.22 H APTT 40.8 H ABG pO2 ABG Hemoglobin Sodium 127 L Chloride 89.3 L Creatinine 0.7 L Glucose 121 H Calcium 10.3 H AST 47 H Alkaline Phosphatase 204 H Total Protein Albumin 2.4 L LDL Cholesterol Direct HDL Cholesterol 01/26/21 01/26/21 01/27/21 13:32 17:03 04:46 WBC 15.3 H RBC 3.43 L Hgb 9.4 L Hct 29.8 L MCH 27 L MCHC Plt Count 612 H Lymph % (Auto) 8.6 L [place] % (Auto) 8.9 H Lymph # (Auto) [place] # (Auto) 1.4 H Seg Neutrophils % 81.8 H Seg Neutrophils # 12.5 H PT INR APTT ABG pO2 112.6 H ABG Hemoglobin 9.6 L Sodium Chloride Creatinine Glucose Calcium AST Alkaline Phosphatase Total Protein Albumin LDL Cholesterol Direct 43 L HDL Cholesterol 18 L 01/27/21 01/28/21 01/28/21 04:46 08:51 08:51 WBC 12.9 H RBC 2.89 L Hgb 8.5 L Hct 24.6 L MCH MCHC 35 H Plt Count 522 H Lymph % (Auto) [place] % (Auto) Lymph # (Auto) [place] # (Auto) Seg Neutrophils % Seg Neutrophils # PT INR APTT ABG pO2 ABG Hemoglobin Sodium 130 L 131 L Chloride 94.9 L 97.4 L Creatinine 0.5 L 0.4 L Glucose 102 H Calcium AST Alkaline Phosphatase 170 H Total Protein 6.2 L Albumin 1.9 L LDL Cholesterol Direct HDL Cholesterol
--- NOTE | 2021-01-28 11:21 | Progress Note ---
Assessment and Plan Assessment and Plan Advance Directives: Yes (Full code) VTE prophylaxis?: Chemical Plan of care discussed with patient/family: Yes # Right sided-Weakness remote and possible transient left side weakness resolved -Transient and resolved. -Hx of CVA -CT brain is remarkable for remote BG infarct -MRI brain is remarkable for remote left BG lacunar infarct -Echo is pending -LDL#43 -On ASA and Lipitor 40 mg -Repeat MRI brain with gd same no structural lesion is noted No met is noted -Advance ASA to 325 mg daily -CTA brain and neck is unremarkable. # Postobstructive pneumonia -Patient started on empiric antibiotics cefepime and vancomycin -Patient has a right lung mass -Pulmonary consulted -Patient to be referred to outpatient hematology oncology for further follow-up. -No oncology service available in the hospital. Except for telemetry hematology/oncology. # Hyponatremia -IV normal saline for now # Mass of right lung -Referred to oncology as outpatient--- Dr. Acuna # Left-sided weakness Transient and resolved. # HTN (hypertension) -Continue antihypertensives and adjust medications -pt. is hypotensive and with bradycardia -BP#92/52, HR#52 # Anemia -Anemia work-up # Malnutrition -Dietary supplements for now # Thrombocytosis -Plat#625K -Hg #9.4 -ESR#122 -? Related to underlying malignancy ,Send for TAMIA -Paraneoplastic work up ? to be differed to oncology -Hypercoagulable stat can not be excluded (9) DVT prophylaxis -On anticoagulation GI prophylaxis will follow as needed -Pulmonary is consulted pt. is awaiting Biopsy -PT/ST evaluation Subjective Date of service: 01/28/21 Interval history: alert interactive On Cpap Move all extremities L>R MRI with gd showed no acute event no mass efect or lesion Remote lacunar infarct BGLeft side CTA is unremarkable Echo is pending Evaluated by Pulmonary Objective - Vital Sign Vital Signs - 12hr 01/27/21 01/28/21 01/28/21 23:37 00:00 03:12 Temperature 98.3 F 98.1 F Pulse Rate 60 115 H 61 Respiratory 19 21 Rate Blood Pressure 116/69 107/60 O2 Sat by Pulse 100 100 Oximetry 01/28/21 01/28/21 08:14 10:00 Temperature 97.9 F Pulse Rate 105 H Respiratory 16 Rate Blood Pressure 107/73 O2 Sat by Pulse 100 98 Oximetry - General Apperance Constitutional: uncomfortable - EENT EENT: PERRL, mucous membranes moist - Respiratory Respiratory: chest non-tender, lungs clear, rhonchi - Cardiovascular Cardiovascular: regular rate, normal S1, normal S2 Extremities: no peripheral edema bilat, no clubbing, cyanosis - Gastrointestinal Gastrointestinal: normoactive bowel sounds - Integumentary Integumentary: normal - Neurologic Cranial nerve examination: PERRL, EOMI, intact Speech examination: intact Detailed motor examination: other (slight right upper weakness4-/5 ,gait not done, reflexes 1+ ) - Laboratory Findings CBC and BMP: 01/28/21 08:51 01/28/21 08:51 Abnormal Lab Findings: Abnormal Labs 01/26/21 01/26/21 01/26/21 13:00 13:00 13:00 WBC 16.7 H RBC 3.28 L Hgb 9.1 L Hct 28.1 L MCH MCHC Plt Count 626 H Lymph % (Auto) 6.2 L [place] % (Auto) 9.6 H Lymph # (Auto) 1.0 L [place] # (Auto) 1.6 H Seg Neutrophils % 83.5 H Seg Neutrophils # 13.9 H PT 16.7 H INR 1.22 H APTT 40.8 H ABG pO2 ABG Hemoglobin Sodium 127 L Chloride 89.3 L Creatinine 0.7 L Glucose 121 H Calcium 10.3 H AST 47 H Alkaline Phosphatase 204 H Total Protein Albumin 2.4 L LDL Cholesterol Direct HDL Cholesterol 01/26/21 01/26/21 01/27/21 13:32 17:03 04:46 WBC 15.3 H RBC 3.43 L Hgb 9.4 L Hct 29.8 L MCH 27 L MCHC Plt Count 612 H Lymph % (Auto) 8.6 L [place] % (Auto) 8.9 H Lymph # (Auto) [place] # (Auto) 1.4 H Seg Neutrophils % 81.8 H Seg Neutrophils # 12.5 H PT INR APTT ABG pO2 112.6 H ABG Hemoglobin 9.6 L Sodium Chloride Creatinine Glucose Calcium AST Alkaline Phosphatase Total Protein Albumin LDL Cholesterol Direct 43 L HDL Cholesterol 18 L 01/27/21 01/28/21 01/28/21 04:46 08:51 08:51 WBC 12.9 H RBC 2.89 L Hgb 8.5 L Hct 24.6 L MCH MCHC 35 H Plt Count 522 H Lymph % (Auto) [place] % (Auto) Lymph # (Auto) [place] # (Auto) Seg Neutrophils % Seg Neutrophils # PT INR APTT ABG pO2 ABG Hemoglobin Sodium 130 L 131 L Chloride 94.9 L 97.4 L Creatinine 0.5 L 0.4 L Glucose 102 H Calcium AST Alkaline Phosphatase 170 H Total Protein 6.2 L Albumin 1.9 L LDL Cholesterol Direct HDL Cholesterol
[2021-01-28] MEDS: ASPIRIN 325 MG TAB PO SCH (18:12)
[2021-01-28] MEDS: SODIUM CHLORIDE 0.9% 1000 ML 1,000 ML IV SCH (18:14)
[2021-01-28] MEDS: NORTRIPTYLINE 25 MG CAP PO SCH (22:52)
[2021-01-28] MEDS: GABAPENTIN 300 MG CAP PO SCH (22:53)
[2021-01-29] MEDS: CEFEPIME/NS 2 GM/100 ML 2 GM/100 ML BAG IV SCH ×2 (02:24→13:17)
[2021-01-29] MEDS: VANCOMYCIN 750 MG in SODIUM CHLORIDE 0.9% 250ML 250 ML IV SCH (06:26)
[2021-01-29 08:12] LABS: Hematocrit 26.5 % (35.5-45.6); Hemoglobin 8.5 gm/dl (11.8-15.2); Mean Corpuscular HGB Conc 32 % (32-34); Mean Corpuscular Volume 89 fl (84-94); Platelet Count 521 K/mm3 (140-440); Red Blood Count 2.99 M/mm3 (3.65-5.03)
--- NOTE | 2021-01-29 08:21 | Progress Note ---
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 There is minimal filling of the right lower lobe pulmonary arterial and venous distribution. Extensive postobstructive pneumonia and pleural effusion also noted on the right. Left lung is clear. --Postobstructive pneumonia Current Visit: Yes Status: Acute Patient started on empiric antibiotics cefepime and vancomycin Patient has a right lung mass,Pulmonary evaluated the patient Possible bronchoscopy with biopsy tomorrow --Hyponatremia Current Visit: Yes Status: Acute IV normal saline for now --Right lung mass; Current Visit: Yes Status: Acute With complete atelectasis/collapse of right lung Follow pulmonary evaluation recommendations Possible bronchoscopy and biopsy Heme-onc evaluation if needed pending biopsy -- Left-sided weakness Current Visit: Yes Status: Acute Possible CVA versus TIA Symptoms completely resolved Neuro work-up negative so far Neurology following --?CVA/TIA (cerebrovascular accident) Current Visit: Yes Status: Chronic Has minimal weakness in both her upper extremities and lower extremities. PT/OT. Neurology consult requested. New CVA unlikely clinically. Also MRI rules out any acute infarct. --Anemia Current Visit: Yes Status: Chronic Anemia work-up --Severe protein calorie malnutrition Current Visit: Yes Status: Chronic Dietary supplements , nutrition consult -- DVT prophylaxis Current Visit: Yes Status: Acute On anticoagulation GI prophylaxis We will closely monitor patient and adjust management as needed Waistband Setter recommendations noted and appreciated Follow rest of the work-up, and treat accordingly 01/28/21 Patient with postobstructive pneumonia. Right lung mass. For bronchoscopy and biopsy by Pulmonology. 01/29/21 Patient with right lung mass, weight loss. For bronchoscopy and biopsy on Sunday. History Interval history: Right lung mass left sided weakness Hospitalist Physical - Physical exam Narrative exam: Gen: Not in acute distress, cachectic, malnourished HEENT:Normocephalic, atraumatic Neck:supple, No JVD Lungs: Decreased breath sounds right lung, no wheeze Heart:S1 and S2 reg, no murmurs, rubs or gallop Abd:soft, non tender, non distended, normal bowel sounds Ext; No edema, no clubbing, no cyanosis Neuro:Awake,alert,oriented X 3, left sided weakness - Constitutional Vitals: Temp Pulse Resp BP Pulse Ox 97.9 F 59 L 18 104/57 99 01/29/21 07:08 01/29/21 07:08 01/29/21 07:08 01/29/21 07:08 01/29/21 08:15 General appearance: Present: no acute distress, cachectic HEART Score - HEART Score EKG: Normal Age: 45-65 Troponin: Troponin T < 0.010 ng/mL (0.00-0.029) 01/26/21 13:00 Troponin: 1-3x normal limit - Critical Actions Critical Actions: 0-3 pts:0.9-1.7%risk of adverse cardiac event.Candidate for discharge Results - Labs CBC & Chem 7: 01/29/21 07:35 01/29/21 07:35 Labs: Laboratory Last Values WBC 11.1 K/mm3 (4.5-11.0) H 01/29/21 07:35 RBC 2.99 M/mm3 (3.65-5.03) L 01/29/21 07:35 Hgb 8.5 gm/dl (11.8-15.2) L 01/29/21 07:35 Hct 26.5 % (35.5-45.6) L 01/29/21 07:35 MCV 89 fl (84-94) 01/29/21 07:35 MCH 28 pg (28-32) 01/29/21 07:35 MCHC 32 % (32-34) 01/29/21 07:35 RDW 15.0 % (13.2-15.2) 01/29/21 07:35 Plt Count 521 K/mm3 (140-440) H 01/29/21 07:35 Lymph % (Auto) 8.6 % (13.4-35.0) L 01/27/21 04:46 [place] % (Auto) 8.9 % (0.0-7.3) H 01/27/21 04:46 Eos % (Auto) 0.3 % (0.0-4.3) 01/27/21 04:46 Baso % (Auto) 0.4 % (0.0-1.8) 01/27/21 04:46 Lymph # (Auto) 1.3 K/mm3 (1.2-5.4) 01/27/21 04:46 [place] # (Auto) 1.4 K/mm3 (0.0-0.8) H 01/27/21 04:46 Eos # (Auto) 0.0 K/mm3 (0.0-0.4) 01/27/21 04:46 Baso # (Auto) 0.1 K/mm3 (0.0-0.1) 01/27/21 04:46 Seg Neutrophils % 81.8 % (40.0-70.0) H 01/27/21 04:46 Seg Neutrophils # 12.5 K/mm3 (1.8-7.7) H 01/27/21 04:46 ESR > 140.0 mm/Hr (0-20) 01/26/21 13:00 PT 16.7 Sec. (12.2-14.9) H 01/26/21 13:00 INR 1.22 (0.87-1.13) H 01/26/21 13:00 APTT 40.8 Sec. (24.2-36.6) H 01/26/21 13:00 ABG pH 7.431 pH Units (7.350-7.450) 01/26/21 17:03 ABG pCO2 39.7 mm Hg 01/26/21 17:03 ABG pO2 112.6 mm Hg (80.0-90.0) H 01/26/21 17:03 ABG HCO3 25.8 mmol/L (20.0-26.0) 01/26/21 17:03 ABG O2 Saturation 98.1 % (95.0-99.0) 01/26/21 17:03 ABG O2 Content 13.2 (0.0-44) 01/26/21 17:03 ABG Base Excess 1.5 mmol/L (-2.0-3.0) 01/26/21 17:03 ABG Hemoglobin 9.6 gm/dl (14.0-18.0) L 01/26/21 17:03 ABG Carboxyhemoglobin 1.9 % (0.0-5.0) 01/26/21 17:03 ABG Methemoglobin 0.3 % (0.0-1.5) 01/26/21 17:03 Oxyhemoglobin 96.0 % (95.0-99.0) 01/26/21 17:03 FiO2 28 % 01/26/21 17:03 Sodium 131 mmol/L (137-145) L 01/28/21 08:51 Potassium 4.8 mmol/L (3.6-5.0) 01/28/21 08:51 Chloride 97.4 mmol/L (98-107) L 01/28/21 08:51 Carbon Dioxide 26 mmol/L (22-30) 01/28/21 08:51 Anion Gap 12 mmol/L 01/28/21 08:51 BUN 10 mg/dL (9-20) 01/28/21 08:51 Creatinine 0.4 mg/dL (0.8-1.3) L 01/28/21 08:51 Estimated GFR > 60 ml/min 01/28/21 08:51 BUN/Creatinine Ratio 28 % 01/28/21 08:51 Glucose 102 mg/dL (75-100) H 01/28/21 08:51 Lactic Acid 1.60 mmol/L (0.7-2.0) 01/26/21 17:24 Calcium 9.5 mg/dL (8.4-10.2) 01/28/21 08:51 Total Bilirubin 0.60 mg/dL (0.1-1.2) 01/27/21 04:46 AST 32 units/L (5-40) 01/27/21 04:46 ALT 26 units/L (7-56) 01/27/21 04:46 Alkaline Phosphatase 170 units/L (35-129) H 01/27/21 04:46 Troponin T < 0.010 ng/mL (0.00-0.029) 01/26/21 13:00 Total Protein 6.2 g/dL (6.3-8.2) L 01/27/21 04:46 Albumin 1.9 g/dL (3.9-5) L 01/27/21 04:46 Albumin/Globulin Ratio 0.4 % 01/27/21 04:46 Triglycerides 78 mg/dL (2-149) 01/26/21 13:32 Cholesterol 78 mg/dL (50-199) 01/26/21 13:32 LDL Cholesterol Direct 43 mg/dL (50-130) L 01/26/21 13:32 HDL Cholesterol 18 mg/dL (40-59) L 01/26/21 13:32 Cholesterol/HDL Ratio 4.33 % 01/26/21 13:32 Vancomycin Trough 6.7 ug/mL (5.0-20.0) 01/28/21 16:26 Microbiology: Microbiology 01/26/21 17:24 Peripheral/Venous Blood Culture - Preliminary NO GROWTH AFTER 48 HOURS 01/26/21 17:24 Peripheral/Venous Blood Culture - Preliminary NO GROWTH AFTER 48 HOURS Evans/IV: Voiding Method Urinal Active Medications - Current Medications Current Medications: Generic Name Dose Route Start Last Admin Trade Name Freq PRN Reason Stop Dose Admin Acetaminophen 650 mg 01/27/21 01:04 Acetaminophen 325 Mg Tab PO Q4H PRN Pain MILD(1-3)/Fever >100.5/[place] Aspirin 325 mg 01/27/21 13:00 01/28/21 18:12 Aspirin 325 Mg Tab PO 325 mg QDAY SILVIA Administration Gabapentin 300 mg 01/27/21 22:00 01/28/21 22:53 Gabapentin 300 Mg Cap PO 300 mg QHS SILVIA Administration Heparin Sodium (Porcine) 5,000 unit 01/27/21 01:15 01/28/21 22:52 Heparin 5,000 Unit/1 Ml Vial SUB-Q 5,000 unit Q12HR SILVIA Administration Hydromorphone HCl 0.5 mg 01/27/21 01:04 01/28/21 13:20 Hydromorphone 1 Mg/1 Ml Inj IV 0.5 mg Q3H PRN Administration Pain , Severe (7-10) Sodium Chloride 1,000 mls @ 75 mls/hr 01/27/21 01:15 01/28/21 18:14 Nacl 0.9% 1000 Ml IV 75 mls/hr DIRECT SILVIA Administration Cefepime HCl 2 gm in 100 mls @ 200 mls/hr 01/28/21 14:00 01/29/21 02:24 Cefepime/Ns 2 Gm/100 Ml IV 200 mls/hr Q12H SILVIA Administration Protocol Vancomycin HCl 1,250 mg/ 275 mls @ 166.667 mls/hr 01/29/21 18:00 Sodium Chloride IV Q12H SILVIA Methocarbamol 500 mg 01/27/21 10:00 01/28/21 22:52 Methocarbamol 500 Mg Tab PO 500 mg BID SILVIA Administration Metoclopramide HCl 10 mg 01/27/21 01:04 Metoclopramide 10 Mg/2 Ml Inj IV Q6H PRN Nausea And Vomiting Nortriptyline HCl 75 mg 01/27/21 22:00 01/28/21 22:52 Nortriptyline 25 Mg Cap PO 75 mg QHS SILVIA Administration Ondansetron HCl 4 mg 01/27/21 01:04 Ondansetron 4 Mg/2 Ml Inj IV Q8H PRN Nausea And Vomiting Oxycodone/Acetaminophen 1 tab 01/27/21 01:04 Oxycodone /Acetaminophen 5-325mg Tab PO Q6H PRN Pain, Moderate (4-6) Sodium Chloride 10 ml 01/27/21 10:00 01/28/21 22:54 Sodium Chloride 0.9% 10 Ml Flush Syringe IV 10 ml BID SILVIA Administration Sodium Chloride 10 ml 01/27/21 01:04 Sodium Chloride 0.9% 10 Ml Flush Syringe IV PRN PRN LINE FLUSH Nutrition/Malnutrition Assess - Dietary Evaluation Nutrition/Malnutrition Findings: Nutrition Notes Start: 01/27/21 09:02 Freq: Status: Active Protocol: Document 01/27/21 09:02 JESSICA (Rec: 01/27/21 10:32 JESSICA [id number]) Nutrition Notes Need for Assessment generated from: Low BMI Initial or Follow up Assessment Current Diagnosis Hypertension,Malnutrition, Stroke Other Pertinent Diagnosis Postobstructive pneumonia, anemia, Minor stroke Current Diet Regular Diet (since B 01/27). Labs/Tests 01/27: Na 130, Cl 94.9, Cr 0.5 . Pertinent Medications 01/27: Nutritionally unremarkable. Height 6 ft Weight 54.43 kg [place] Body Weight (kg) 80.90 BMI 16.2 Weight Status Underweight Subjective/Other Information Diagnosis of Chronic moderate malnutrition and anemia. Percent of energy/protein needs met: Prescribed Regular Diet provides for energy/protein needs (2,289 Kcal/89 g) during LOS. Burn Absent Trauma Absent GI Symptoms None Food Allergy No Skin Integrity/Comment Clear, warm, dry. Current % PO Good (75-100%) #1 Nutrition Diagnosis Predicted suboptimal energy intake,Malnutrition, Underweight,Food and nutrition -related knowledge deficit Comments: Current diagnosis of Chronic moderate malnutrition and anemia. Etiology Unknown at the time. As Evidenced by Signs and Symptoms Low BMI, abnormal chemistry lab values, MD diagnoses. Is patient on ventilator? No Is Patient Ambulatory and/or Out of Bed Yes REE-([place]-St. Jeor-ambulatory/OOB) [ 1790.490 [id number]] Kcal/Kg value to use for calculation 40 Approximate Energy Requirements Using 2177 kcal/Kg Calculation Used for Recommendations Kcal/kg Additional Notes Protein: 1.2-1.5 g/Kg/day; 97- 122 g/day; 388-488 Kcal/day ( from IBW). Fluids: 1.0 ml/Kcal/day, or as per MD. Nutrition Intervention Change Diet Order: Continue Regular Diet. Teaching Recipient Patient Learning Readiness Fair Teaching Methods Discussion,Handout Response to Teaching Reinforcement needed Education Handouts Provided AND: General, Healthful Mediterranean Nutrition Therapy. Barriers to Learning Motivation RD phone number provided Yes Patient aware of follow up options Yes Goal #1 Maintain body weight within +/ -3% of current BWt during LOS. Goal #2 Reach and maintain acceptable chemistry lab values during LOS. Goal #3 Provide Pt with educational tools to elicit behavioral changes towards a healthy lifestyle. Follow-Up By: 02/03/21 Additional Comments Continue monitoring acceptance of foods, %PO intake of meals , hydration, and BM.
[2021-01-29 08:38] LABS: Blood Urea Nitrogen 10 mg/dL (9-20); Calcium 9.4 mg/dL (8.4-10.2); Hemolysis Index 1
[2021-01-29 08:39] LABS: BUN/Creatinine Ratio 25
--- NOTE | 2021-01-29 09:19 | Progress Note ---
Assessment and Plan 65 y/o smoker with emphysema and right lung mass, very proximal in the right mainstem with complete lung collapse 01/29/21: NPO after midnight on Sunday for Bronch Sunday morning at 0930. Please check Coags tomorrow morning. 01/28/21: Bronch on Sunday. Wean FiO2 as tolerated. ABX. 1. Bronch with biopsy 2. Discussed with patient at bedside 3. Await neurology work up and to make sure no edema/swelling as the likelihood of herniation increases with bronch 4. Guarded to poor prognosis Subjective Date of service: 01/29/21 Interval history: No acute events. Weaned to room air. Objective Vital Signs - 12hr 01/28/21 01/28/21 01/28/21 21:25 22:10 23:00 Temperature 99.2 F Pulse Rate 63 Respiratory 18 Rate Blood Pressure 86/55 O2 Sat by Pulse 96 98 97 Oximetry 01/29/21 01/29/21 01/29/21 03:42 06:39 07:08 Temperature 98.9 F 97.9 F Pulse Rate 46 L 59 L Respiratory 18 18 Rate Blood Pressure 99/59 104/57 O2 Sat by Pulse 77 L 92 100 Oximetry 01/29/21 08:15 Temperature Pulse Rate Respiratory Rate Blood Pressure O2 Sat by Pulse 99 Oximetry Constitutional: other (appears much older than stated age) Eyes: non-icteric ENT: oropharynx moist Neck: supple Effort: normal Ascultation: Right: diminished breath sounds, Left: clear Percussion: Right: dull Gastrointestinal: normoactive bowel sounds Integumentary: normal CBC and BMP: 01/29/21 07:35 01/29/21 07:35 ABG, PT/INR, D-dimer: ABG ABG pH 7.431 pH Units (7.350-7.450) 01/26/21 17:03 ABG pCO2 39.7 mm Hg 01/26/21 17:03 ABG pO2 112.6 mm Hg (80.0-90.0) H 01/26/21 17:03 ABG O2 Saturation 98.1 % (95.0-99.0) 01/26/21 17:03 PT/INR, D-dimer PT 16.7 Sec. (12.2-14.9) H 01/26/21 13:00 INR 1.22 (0.87-1.13) H 01/26/21 13:00 Abnormal lab findings: Abnormal Labs 01/26/21 01/26/21 01/26/21 13:00 13:00 13:00 WBC 16.7 H RBC 3.28 L Hgb 9.1 L Hct 28.1 L MCH MCHC Plt Count 626 H Lymph % (Auto) 6.2 L [place] % (Auto) 9.6 H Lymph # (Auto) 1.0 L [place] # (Auto) 1.6 H Seg Neutrophils % 83.5 H Seg Neutrophils # 13.9 H PT 16.7 H INR 1.22 H APTT 40.8 H ABG pO2 ABG Hemoglobin Sodium 127 L Chloride 89.3 L Creatinine 0.7 L Glucose 121 H Calcium 10.3 H AST 47 H Alkaline Phosphatase 204 H Total Protein Albumin 2.4 L LDL Cholesterol Direct HDL Cholesterol 01/26/21 01/26/21 01/27/21 13:32 17:03 04:46 WBC 15.3 H RBC 3.43 L Hgb 9.4 L Hct 29.8 L MCH 27 L MCHC Plt Count 612 H Lymph % (Auto) 8.6 L [place] % (Auto) 8.9 H Lymph # (Auto) [place] # (Auto) 1.4 H Seg Neutrophils % 81.8 H Seg Neutrophils # 12.5 H PT INR APTT ABG pO2 112.6 H ABG Hemoglobin 9.6 L Sodium Chloride Creatinine Glucose Calcium AST Alkaline Phosphatase Total Protein Albumin LDL Cholesterol Direct 43 L HDL Cholesterol 18 L 01/27/21 01/28/21 01/28/21 04:46 08:51 08:51 WBC 12.9 H RBC 2.89 L Hgb 8.5 L Hct 24.6 L MCH MCHC 35 H Plt Count 522 H Lymph % (Auto) [place] % (Auto) Lymph # (Auto) [place] # (Auto) Seg Neutrophils % Seg Neutrophils # PT INR APTT ABG pO2 ABG Hemoglobin Sodium 130 L 131 L Chloride 94.9 L 97.4 L Creatinine 0.5 L 0.4 L Glucose 102 H Calcium AST Alkaline Phosphatase 170 H Total Protein 6.2 L Albumin 1.9 L LDL Cholesterol Direct HDL Cholesterol 01/29/21 01/29/21 07:35 07:35 WBC 11.1 H RBC 2.99 L Hgb 8.5 L Hct 26.5 L MCH MCHC Plt Count 521 H Lymph % (Auto) [place] % (Auto) Lymph # (Auto) [place] # (Auto) Seg Neutrophils % Seg Neutrophils # PT INR APTT ABG pO2 ABG Hemoglobin Sodium 131 L Chloride Creatinine 0.4 L Glucose 108 H Calcium AST Alkaline Phosphatase Total Protein Albumin LDL Cholesterol Direct HDL Cholesterol
[2021-01-29] MEDS: HEPARIN 5,000 UNIT/1 ML VIAL SUB-Q SCH ×2 (10:13→22:09)
[2021-01-29] MEDS: SODIUM CHLORIDE 0.9% 1000 ML 1,000 ML IV SCH (12:46)
[2021-01-29] MEDS: VANCOMYCIN 1,250 MG in SODIUM CHLORIDE 0.9% 250ML 250 ML IV SCH (17:30)
[2021-01-29] MEDS: NORTRIPTYLINE 25 MG CAP PO SCH (22:08)
[2021-01-29] MEDS: GABAPENTIN 300 MG CAP PO SCH (22:08)
[2021-01-30] MEDS: SODIUM CHLORIDE 0.9% 1000 ML 1,000 ML IV SCH (00:45)
[2021-01-30] MEDS: CEFEPIME/NS 2 GM/100 ML 2 GM/100 ML BAG IV SCH ×2 (02:54→15:08)
[2021-01-30] MEDS: VANCOMYCIN 1,250 MG in SODIUM CHLORIDE 0.9% 250ML 250 ML IV SCH (06:13)
--- NOTE | 2021-01-30 09:00 | Progress Note ---
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 There is minimal filling of the right lower lobe pulmonary arterial and venous distribution. Extensive postobstructive pneumonia and pleural effusion also noted on the right. Left lung is clear. --Postobstructive pneumonia Current Visit: Yes Status: Acute Patient started on empiric antibiotics cefepime and vancomycin Patient has a right lung mass,Pulmonary evaluated the patient Possible bronchoscopy with biopsy tomorrow --Hyponatremia Current Visit: Yes Status: Acute IV normal saline for now --Right lung mass; Current Visit: Yes Status: Acute With complete atelectasis/collapse of right lung Follow pulmonary evaluation recommendations Possible bronchoscopy and biopsy Heme-onc evaluation if needed pending biopsy -- Left-sided weakness Current Visit: Yes Status: Acute Possible CVA versus TIA Symptoms completely resolved Neuro work-up negative so far Neurology following --?CVA/TIA (cerebrovascular accident) Current Visit: Yes Status: Chronic Has minimal weakness in both her upper extremities and lower extremities. PT/OT. Neurology consult requested. New CVA unlikely clinically. Also MRI rules out any acute infarct. --Anemia Current Visit: Yes Status: Chronic Anemia work-up --Severe protein calorie malnutrition Current Visit: Yes Status: Chronic Dietary supplements , nutrition consult -- DVT prophylaxis Current Visit: Yes Status: Acute On anticoagulation GI prophylaxis We will closely monitor patient and adjust management as needed Inside Sales Assistant recommendations noted and appreciated Follow rest of the work-up, and treat accordingly 01/28/21 Patient with postobstructive pneumonia. Right lung mass. For bronchoscopy and biopsy by Pulmonology. 01/29/21 Patient with right lung mass, weight loss. For bronchoscopy and biopsy on Sunday. 01/30/21 Patient with right lung mass. He is for bronchoscopy and biopsy tomorrow. History Interval history: Right lung mass left sided weakness Hospitalist Physical - Physical exam Narrative exam: Gen: Not in acute distress, cachectic, malnourished HEENT:Normocephalic, atraumatic Neck:supple, No JVD Lungs: Decreased breath sounds right lung, no wheeze Heart:S1 and S2 reg, no murmurs, rubs or gallop Abd:soft, non tender, non distended, normal bowel sounds Ext; No edema, no clubbing, no cyanosis Neuro:Awake,alert,oriented X 3, left sided weakness - Constitutional Vitals: Temp Pulse Resp BP Pulse Ox 98.8 F 104 H 18 104/70 99 01/30/21 07:40 01/30/21 07:40 01/30/21 07:40 01/30/21 07:40 01/30/21 07:40 General appearance: Present: no acute distress, cachectic HEART Score - HEART Score EKG: Normal Age: 45-65 Troponin: Troponin T < 0.010 ng/mL (0.00-0.029) 01/26/21 13:00 Troponin: 1-3x normal limit - Critical Actions Critical Actions: 0-3 pts:0.9-1.7%risk of adverse cardiac event.Candidate for discharge Results - Labs CBC & Chem 7: 01/29/21 07:35 01/29/21 07:35 Labs: Laboratory Last Values WBC 11.1 K/mm3 (4.5-11.0) H 01/29/21 07:35 RBC 2.99 M/mm3 (3.65-5.03) L 01/29/21 07:35 Hgb 8.5 gm/dl (11.8-15.2) L 01/29/21 07:35 Hct 26.5 % (35.5-45.6) L 01/29/21 07:35 MCV 89 fl (84-94) 01/29/21 07:35 MCH 28 pg (28-32) 01/29/21 07:35 MCHC 32 % (32-34) 01/29/21 07:35 RDW 15.0 % (13.2-15.2) 01/29/21 07:35 Plt Count 521 K/mm3 (140-440) H 01/29/21 07:35 Lymph % (Auto) 8.6 % (13.4-35.0) L 01/27/21 04:46 Duc[place]ne % (Auto) 8.9 % (0.0-7.3) H 01/27/21 04:46 Eos % (Auto) 0.3 % (0.0-4.3) 01/27/21 04:46 Baso % (Auto) 0.4 % (0.0-1.8) 01/27/21 04:46 Lymph # (Auto) 1.3 K/mm3 (1.2-5.4) 01/27/21 04:46 Duc[place]ne # (Auto) 1.4 K/mm3 (0.0-0.8) H 01/27/21 04:46 Eos # (Auto) 0.0 K/mm3 (0.0-0.4) 01/27/21 04:46 Baso # (Auto) 0.1 K/mm3 (0.0-0.1) 01/27/21 04:46 Seg Neutrophils % 81.8 % (40.0-70.0) H 01/27/21 04:46 Seg Neutrophils # 12.5 K/mm3 (1.8-7.7) H 01/27/21 04:46 ESR > 140.0 mm/Hr (0-20) 01/26/21 13:00 PT 16.7 Sec. (12.2-14.9) H 01/26/21 13:00 INR 1.22 (0.87-1.13) H 01/26/21 13:00 APTT 40.8 Sec. (24.2-36.6) H 01/26/21 13:00 ABG pH 7.431 pH Units (7.350-7.450) 01/26/21 17:03 ABG pCO2 39.7 mm Hg 01/26/21 17:03 ABG pO2 112.6 mm Hg (80.0-90.0) H 01/26/21 17:03 ABG HCO3 25.8 mmol/L (20.0-26.0) 01/26/21 17:03 ABG O2 Saturation 98.1 % (95.0-99.0) 01/26/21 17:03 ABG O2 Content 13.2 (0.0-44) 01/26/21 17:03 ABG Base Excess 1.5 mmol/L (-2.0-3.0) 01/26/21 17:03 ABG Hemoglobin 9.6 gm/dl (14.0-18.0) L 01/26/21 17:03 ABG Carboxyhemoglobin 1.9 % (0.0-5.0) 01/26/21 17:03 ABG Methemoglobin 0.3 % (0.0-1.5) 01/26/21 17:03 Oxyhemoglobin 96.0 % (95.0-99.0) 01/26/21 17:03 FiO2 28 % 01/26/21 17:03 Sodium 131 mmol/L (137-145) L 01/29/21 07:35 Potassium 4.5 mmol/L (3.6-5.0) 01/29/21 07:35 Chloride 99.5 mmol/L (98-107) 01/29/21 07:35 Carbon Dioxide 23 mmol/L (22-30) 01/29/21 07:35 Anion Gap 13 mmol/L 01/29/21 07:35 BUN 10 mg/dL (9-20) 01/29/21 07:35 Creatinine 0.4 mg/dL (0.8-1.3) L 01/29/21 07:35 Estimated GFR > 60 ml/min 01/29/21 07:35 BUN/Creatinine Ratio 25 % 01/29/21 07:35 Glucose 108 mg/dL (75-100) H 01/29/21 07:35 Lactic Acid 1.60 mmol/L (0.7-2.0) 01/26/21 17:24 Calcium 9.4 mg/dL (8.4-10.2) 01/29/21 07:35 Total Bilirubin 0.60 mg/dL (0.1-1.2) 01/27/21 04:46 AST 32 units/L (5-40) 01/27/21 04:46 ALT 26 units/L (7-56) 01/27/21 04:46 Alkaline Phosphatase 170 units/L (35-129) H 01/27/21 04:46 Troponin T < 0.010 ng/mL (0.00-0.029) 01/26/21 13:00 Total Protein 6.2 g/dL (6.3-8.2) L 01/27/21 04:46 Albumin 1.9 g/dL (3.9-5) L 01/27/21 04:46 Albumin/Globulin Ratio 0.4 % 01/27/21 04:46 Triglycerides 78 mg/dL (2-149) 01/26/21 13:32 Cholesterol 78 mg/dL (50-199) 01/26/21 13:32 LDL Cholesterol Direct 43 mg/dL (50-130) L 01/26/21 13:32 HDL Cholesterol 18 mg/dL (40-59) L 01/26/21 13:32 Cholesterol/HDL Ratio 4.33 % 01/26/21 13:32 Vancomycin Trough 6.7 ug/mL (5.0-20.0) 01/28/21 16:26 Microbiology: Microbiology 01/26/21 17:24 Peripheral/Venous Blood Culture - Preliminary NO GROWTH AFTER 72 HOURS 01/26/21 17:24 Peripheral/Venous Blood Culture - Preliminary NO GROWTH AFTER 72 HOURS Evans/IV: Voiding Method Urinal Active Medications - Current Medications Current Medications: Generic Name Dose Route Start Last Admin Trade Name Freq PRN Reason Stop Dose Admin Acetaminophen 650 mg 01/27/21 01:04 Acetaminophen 325 Mg Tab PO Q4H PRN Pain MILD(1-3)/Fever >100.5/MCCAIN Gabapentin 300 mg 01/27/21 22:00 01/29/21 22:08 Gabapentin 300 Mg Cap PO 300 mg QHS SILVIA Administration Heparin Sodium (Porcine) 5,000 unit 01/27/21 01:15 01/29/21 22:09 Heparin 5,000 Unit/1 Ml Vial SUB-Q 5,000 unit Q12HR SILVIA Administration Hydromorphone HCl 0.5 mg 01/27/21 01:04 01/28/21 13:20 Hydromorphone 1 Mg/1 Ml Inj IV 0.5 mg Q3H PRN Administration Pain , Severe (7-10) Sodium Chloride 1,000 mls @ 75 mls/hr 01/27/21 01:15 01/30/21 00:45 Nacl 0.9% 1000 Ml IV 75 mls/hr DIRECT SILVIA Administration Cefepime HCl 2 gm in 100 mls @ 200 mls/hr 01/28/21 14:00 01/30/21 02:54 Cefepime/Ns 2 Gm/100 Ml IV 02/04/21 02:29 200 mls/hr Q12H SILVIA Administration Protocol Vancomycin HCl 1,250 mg/ 275 mls @ 166.667 mls/hr 01/29/21 18:00 01/30/21 06:13 Sodium Chloride IV 166.667 mls/hr Q12H SILVIA Administration Methocarbamol 500 mg 01/27/21 10:00 01/29/21 22:08 Methocarbamol 500 Mg Tab PO 500 mg BID SILVIA Administration Metoclopramide HCl 10 mg 01/27/21 01:04 Metoclopramide 10 Mg/2 Ml Inj IV Q6H PRN Nausea And Vomiting Nortriptyline HCl 75 mg 01/27/21 22:00 01/29/21 22:08 Nortriptyline 25 Mg Cap PO 75 mg QHS SILVIA Administration Ondansetron HCl 4 mg 01/27/21 01:04 Ondansetron 4 Mg/2 Ml Inj IV Q8H PRN Nausea And Vomiting Oxycodone/Acetaminophen 1 tab 01/27/21 01:04 Oxycodone /Acetaminophen 5-325mg Tab PO Q6H PRN Pain, Moderate (4-6) Sodium Chloride 10 ml 01/27/21 10:00 01/29/21 22:11 Sodium Chloride 0.9% 10 Ml Flush Syringe IV 10 ml BID SILVIA Administration Sodium Chloride 10 ml 01/27/21 01:04 Sodium Chloride 0.9% 10 Ml Flush Syringe IV PRN PRN LINE FLUSH Nutrition/Malnutrition Assess - Dietary Evaluation Nutrition/Malnutrition Findings: Nutrition Notes Start: 01/27/21 09:02 Freq: Status: Active Protocol: Document 01/27/21 09:02 JESSICA (Rec: 01/27/21 10:32 JESSICA [id number]) Nutrition Notes Need for Assessment generated from: Low BMI Initial or Follow up Assessment Current Diagnosis Hypertension,Malnutrition, Stroke Other Pertinent Diagnosis Postobstructive pneumonia, anemia, Minor stroke Current Diet Regular Diet (since B 01/27). Labs/Tests 01/27: Na 130, Cl 94.9, Cr 0.5 . Pertinent Medications 01/27: Nutritionally unremarkable. Height 6 ft Weight 54.43 kg [place] Body Weight (kg) 80.90 BMI 16.2 Weight Status Underweight Subjective/Other Information Diagnosis of Chronic moderate malnutrition and anemia. Percent of energy/protein needs met: Prescribed Regular Diet provides for energy/protein needs (2,289 Kcal/89 g) during LOS. Burn Absent Trauma Absent GI Symptoms None Food Allergy No Skin Integrity/Comment Clear, warm, dry. Current % PO Good (75-100%) #1 Nutrition Diagnosis Predicted suboptimal energy intake,Malnutrition, Underweight,Food and nutrition -related knowledge deficit Comments: Current diagnosis of Chronic moderate malnutrition and anemia. Etiology Unknown at the time. As Evidenced by Signs and Symptoms Low BMI, abnormal chemistry lab values, MD diagnoses. Is patient on ventilator? No Is Patient Ambulatory and/or Out of Bed Yes REE-([place]. Jeor-ambulatory/OOB) [ 1790.490 [id number]] Kcal/Kg value to use for calculation 40 Approximate Energy Requirements Using 2177 kcal/Kg Calculation Used for Recommendations Kcal/kg Additional Notes Protein: 1.2-1.5 g/Kg/day; 97- 122 g/day; 388-488 Kcal/day ( from IBW). Fluids: 1.0 ml/Kcal/day, or as per MD. Nutrition Intervention Change Diet Order: Continue Regular Diet. Teaching Recipient Patient Learning Readiness Fair Teaching Methods Discussion,Handout Response to Teaching Reinforcement needed Education Handouts Provided AND: General, Healthful Mediterranean Nutrition Therapy. Barriers to Learning Motivation RD phone number provided Yes Patient aware of follow up options Yes Goal #1 Maintain body weight within +/ -3% of current BWt during LOS. Goal #2 Reach and maintain acceptable chemistry lab values during LOS. Goal #3 Provide Pt with educational tools to elicit behavioral changes towards a healthy lifestyle. Follow-Up By: 02/03/21 Additional Comments Continue monitoring acceptance of foods, %PO intake of meals , hydration, and BM.
[2021-01-30] MEDS: HEPARIN 5,000 UNIT/1 ML VIAL SUB-Q SCH (10:08)
--- NOTE | 2021-01-30 10:24 | Electrocardiograph Report ---
[facility] Test Date: 2021-01-27 Test Time: 12:20:46 Pat Name: SAVANNA PAREKH Department: Room: A476 1 Gender: M Teacher Adult Education: NURSE : 1955 Requested By: PARMINDER DOMINGUEZ Order Number: [id number] Reading MD: Jill Walker Measurements Intervals [place] Rate: 129 P: ME: QRS: 54 QRSD: 94 T: 33 QT: 284 QTc: 417 Interpretive Statements Atrial fibrillation Consider left ventricular hypertrophy Anterior ST elevation, probably due to LVH Compared to ECG 01/26/2021 13:06:42 Left ventricular hypertrophy now present ST (T wave) deviation now present Sinus tachycardia no longer present Electronically Signed On 01-30-2021 10:23:44 EDT by Jill Walker
--- NOTE | 2021-01-30 11:57 | Progress Note ---
Assessment and Plan 65 y/o smoker with emphysema and right lung mass, very proximal in the right mainstem with complete lung collapse 01/30/21: i ordered the coags I asked for yesterday. Will order NPO after midnight. Bronch set for 0930 am 01/31/21 01/29/21: NPO after midnight on Sunday for Bronch Sunday morning at 0930. Please check Coags tomorrow morning. 01/28/21: Bronch on Sunday. Wean FiO2 as tolerated. ABX. 1. Bronch with biopsy 2. Discussed with patient at bedside 3. Await neurology work up and to make sure no edema/swelling as the likelihood of herniation increases with bronch 4. Guarded to poor prognosis Subjective Date of service: 01/30/21 Interval history: Bronch for tomorrow Objective Vital Signs - 12hr 01/30/21 01/30/21 01/30/21 00:01 04:24 07:40 Temperature 98.7 F 98.3 F 98.8 F Pulse Rate 63 64 104 H Respiratory 18 16 18 Rate Blood Pressure 118/69 129/72 104/70 O2 Sat by Pulse 100 100 99 Oximetry 01/30/21 11:01 Temperature 98.3 F Pulse Rate 106 H Respiratory 16 Rate Blood Pressure 104/71 O2 Sat by Pulse 100 Oximetry Constitutional: other (appears much older than stated age) Eyes: non-icteric ENT: oropharynx moist Neck: supple Effort: normal Ascultation: Right: diminished breath sounds, Left: clear Percussion: Right: dull Gastrointestinal: normoactive bowel sounds Integumentary: normal CBC and BMP: 01/29/21 07:35 01/29/21 07:35 ABG, PT/INR, D-dimer: ABG ABG pH 7.431 pH Units (7.350-7.450) 01/26/21 17:03 ABG pCO2 39.7 mm Hg 01/26/21 17:03 ABG pO2 112.6 mm Hg (80.0-90.0) H 01/26/21 17:03 ABG O2 Saturation 98.1 % (95.0-99.0) 01/26/21 17:03 PT/INR, D-dimer PT 16.7 Sec. (12.2-14.9) H 01/26/21 13:00 INR 1.22 (0.87-1.13) H 01/26/21 13:00 Abnormal lab findings: Abnormal Labs 01/26/21 01/26/21 01/26/21 13:00 13:00 13:00 WBC 16.7 H RBC 3.28 L Hgb 9.1 L Hct 28.1 L MCH MCHC Plt Count 626 H Lymph % (Auto) 6.2 L Dickey % (Auto) 9.6 H Lymph # (Auto) 1.0 L Dickey # (Auto) 1.6 H Seg Neutrophils % 83.5 H Seg Neutrophils # 13.9 H PT 16.7 H INR 1.22 H APTT 40.8 H ABG pO2 ABG Hemoglobin Sodium 127 L Chloride 89.3 L Creatinine 0.7 L Glucose 121 H Calcium 10.3 H AST 47 H Alkaline Phosphatase 204 H Total Protein Albumin 2.4 L LDL Cholesterol Direct HDL Cholesterol 01/26/21 01/26/21 01/27/21 13:32 17:03 04:46 WBC 15.3 H RBC 3.43 L Hgb 9.4 L Hct 29.8 L MCH 27 L MCHC Plt Count 612 H Lymph % (Auto) 8.6 L Dickey % (Auto) 8.9 H Lymph # (Auto) Dickey # (Auto) 1.4 H Seg Neutrophils % 81.8 H Seg Neutrophils # 12.5 H PT INR APTT ABG pO2 112.6 H ABG Hemoglobin 9.6 L Sodium Chloride Creatinine Glucose Calcium AST Alkaline Phosphatase Total Protein Albumin LDL Cholesterol Direct 43 L HDL Cholesterol 18 L 01/27/21 01/28/21 01/28/21 04:46 08:51 08:51 WBC 12.9 H RBC 2.89 L Hgb 8.5 L Hct 24.6 L MCH MCHC 35 H Plt Count 522 H Lymph % (Auto) Dickey % (Auto) Lymph # (Auto) Dickey # (Auto) Seg Neutrophils % Seg Neutrophils # PT INR APTT ABG pO2 ABG Hemoglobin Sodium 130 L 131 L Chloride 94.9 L 97.4 L Creatinine 0.5 L 0.4 L Glucose 102 H Calcium AST Alkaline Phosphatase 170 H Total Protein 6.2 L Albumin 1.9 L LDL Cholesterol Direct HDL Cholesterol 01/29/21 01/29/21 07:35 07:35 WBC 11.1 H RBC 2.99 L Hgb 8.5 L Hct 26.5 L MCH MCHC Plt Count 521 H Lymph % (Auto) Dickey % (Auto) Lymph # (Auto) Dickey # (Auto) Seg Neutrophils % Seg Neutrophils # PT INR APTT ABG pO2 ABG Hemoglobin Sodium 131 L Chloride Creatinine 0.4 L Glucose 108 H Calcium AST Alkaline Phosphatase Total Protein Albumin LDL Cholesterol Direct HDL Cholesterol
[2021-01-30 14:37] LABS: INR 1.12 (0.87-1.13)
[2021-01-30 14:38] LABS: Partial Thromboplastin Time 41.7 Sec. (24.2-36.6)
[2021-01-30] MEDS: GABAPENTIN 300 MG CAP PO SCH (22:01)
[2021-01-30] MEDS: NORTRIPTYLINE 25 MG CAP PO SCH (22:01)
[2021-01-31] MEDS: CEFEPIME/NS 2 GM/100 ML 2 GM/100 ML BAG IV SCH ×2 (02:45→14:04)
[2021-01-31] MEDS ORDERED: LIDOCAINE VISCOUS 2% 15 ML ORAL LIQD MM NR (08:30)
[2021-01-31] MEDS ORDERED: SODIUM CHLORIDE 0.9% 1000 ML 1,000 ML IV SCH (08:30)
[2021-01-31] MEDS ORDERED: LIDOCAINE (2%) 20 MG/1 ML VIAL 20 ML MDV INFILTRATI SCH (09:00)
[2021-01-31] MEDS ORDERED: BENZOCAINE 20% TOP SPRAY 0.5 ML UNIT DOSE MM NR (09:00)
[2021-01-31] MEDS ORDERED: WATER FOR IRRIG STERILE 250 ML BOTTLE IR ONE ×2 (09:11→11:19)
[2021-01-31] MEDS ORDERED: LIDOCAINE (1%) 10 MG/1 ML VIAL 20 ML MDV ONE (09:11)
[2021-01-31] MEDS ORDERED: WATER FOR IRRIG STERILE 1,000 ML BOTTLE ONE (09:12)
--- NOTE | 2021-01-31 09:20 | Progress Note ---
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 There is minimal filling of the right lower lobe pulmonary arterial and venous distribution. Extensive postobstructive pneumonia and pleural effusion also noted on the right. Left lung is clear. --Postobstructive pneumonia Current Visit: Yes Status: Acute Patient started on empiric antibiotics cefepime and vancomycin Patient has a right lung mass,Pulmonary evaluated the patient Possible bronchoscopy with biopsy tomorrow --Hyponatremia Current Visit: Yes Status: Acute IV normal saline for now --Right lung mass; Current Visit: Yes Status: Acute With complete atelectasis/collapse of right lung Follow pulmonary evaluation recommendations Possible bronchoscopy and biopsy Heme-onc evaluation if needed pending biopsy -- Left-sided weakness Current Visit: Yes Status: Acute Possible CVA versus TIA Symptoms completely resolved Neuro work-up negative so far Neurology following --?CVA/TIA (cerebrovascular accident) Current Visit: Yes Status: Chronic Has minimal weakness in both her upper extremities and lower extremities. PT/OT. Neurology consult requested. New CVA unlikely clinically. Also MRI rules out any acute infarct. --Anemia Current Visit: Yes Status: Chronic Anemia work-up --Severe protein calorie malnutrition Current Visit: Yes Status: Chronic Dietary supplements , nutrition consult -- DVT prophylaxis Current Visit: Yes Status: Acute On anticoagulation GI prophylaxis We will closely monitor patient and adjust management as needed Microphone Boom Operator recommendations noted and appreciated Follow rest of the work-up, and treat accordingly 01/28/21 Patient with postobstructive pneumonia. Right lung mass. For bronchoscopy and biopsy by Pulmonology. 01/29/21 Patient with right lung mass, weight loss. For bronchoscopy and biopsy on Sunday. 01/30/21 Patient with right lung mass. He is for bronchoscopy and biopsy tomorrow. 01/31/21 patient with right lung mass, left sided weakness. He is for bronchoscopy and biopsy today. MRI Brain:no acute changes, but chronic infarct left basal ganglia. Neurology was seeing him. History Interval history: Right lung mass left sided weakness Hospitalist Physical - Physical exam Narrative exam: Gen: Not in acute distress, cachectic, malnourished HEENT:Normocephalic, atraumatic Neck:supple, No JVD Lungs: Decreased breath sounds right lung, no wheeze Heart:S1 and S2 reg, no murmurs, rubs or gallop Abd:soft, non tender, non distended, normal bowel sounds Ext; No edema, no clubbing, no cyanosis Neuro:Awake,alert,oriented X 3, left sided weakness - Constitutional Vitals: Temp Pulse Resp BP Pulse Ox 97.9 F 114 H 24 143/94 99 01/31/21 07:50 01/31/21 07:50 01/31/21 07:50 01/31/21 07:50 01/31/21 07:50 General appearance: Present: no acute distress, cachectic HEART Score - HEART Score EKG: Normal Age: 45-65 Troponin: Troponin T < 0.010 ng/mL (0.00-0.029) 01/26/21 13:00 Troponin: 1-3x normal limit - Critical Actions Critical Actions: 0-3 pts:0.9-1.7%risk of adverse cardiac event.Candidate for discharge Results - Labs CBC & Chem 7: 01/29/21 07:35 01/29/21 07:35 Labs: Laboratory Last Values WBC 11.1 K/mm3 (4.5-11.0) H 01/29/21 07:35 RBC 2.99 M/mm3 (3.65-5.03) L 01/29/21 07:35 Hgb 8.5 gm/dl (11.8-15.2) L 01/29/21 07:35 Hct 26.5 % (35.5-45.6) L 01/29/21 07:35 MCV 89 fl (84-94) 01/29/21 07:35 MCH 28 pg (28-32) 01/29/21 07:35 MCHC 32 % (32-34) 01/29/21 07:35 RDW 15.0 % (13.2-15.2) 01/29/21 07:35 Plt Count 521 K/mm3 (140-440) H 01/29/21 07:35 Lymph % (Auto) 8.6 % (13.4-35.0) L 01/27/21 04:46 Mower % (Auto) 8.9 % (0.0-7.3) H 01/27/21 04:46 Eos % (Auto) 0.3 % (0.0-4.3) 01/27/21 04:46 Baso % (Auto) 0.4 % (0.0-1.8) 01/27/21 04:46 Lymph # (Auto) 1.3 K/mm3 (1.2-5.4) 01/27/21 04:46 Mower # (Auto) 1.4 K/mm3 (0.0-0.8) H 01/27/21 04:46 Eos # (Auto) 0.0 K/mm3 (0.0-0.4) 01/27/21 04:46 Baso # (Auto) 0.1 K/mm3 (0.0-0.1) 01/27/21 04:46 Seg Neutrophils % 81.8 % (40.0-70.0) H 01/27/21 04:46 Seg Neutrophils # 12.5 K/mm3 (1.8-7.7) H 01/27/21 04:46 ESR > 140.0 mm/Hr (0-20) 01/26/21 13:00 PT 15.6 Sec. (12.2-14.9) H 01/30/21 12:46 INR 1.12 (0.87-1.13) 01/30/21 12:46 APTT 41.7 Sec. (24.2-36.6) H 01/30/21 12:46 ABG pH 7.431 pH Units (7.350-7.450) 01/26/21 17:03 ABG pCO2 39.7 mm Hg 01/26/21 17:03 ABG pO2 112.6 mm Hg (80.0-90.0) H 01/26/21 17:03 ABG HCO3 25.8 mmol/L (20.0-26.0) 01/26/21 17:03 ABG O2 Saturation 98.1 % (95.0-99.0) 01/26/21 17:03 ABG O2 Content 13.2 (0.0-44) 01/26/21 17:03 ABG Base Excess 1.5 mmol/L (-2.0-3.0) 01/26/21 17:03 ABG Hemoglobin 9.6 gm/dl (14.0-18.0) L 01/26/21 17:03 ABG Carboxyhemoglobin 1.9 % (0.0-5.0) 01/26/21 17:03 ABG Methemoglobin 0.3 % (0.0-1.5) 01/26/21 17:03 Oxyhemoglobin 96.0 % (95.0-99.0) 01/26/21 17:03 FiO2 28 % 01/26/21 17:03 Sodium 131 mmol/L (137-145) L 01/29/21 07:35 Potassium 4.5 mmol/L (3.6-5.0) 01/29/21 07:35 Chloride 99.5 mmol/L (98-107) 01/29/21 07:35 Carbon Dioxide 23 mmol/L (22-30) 01/29/21 07:35 Anion Gap 13 mmol/L 01/29/21 07:35 BUN 10 mg/dL (9-20) 01/29/21 07:35 Creatinine 0.4 mg/dL (0.8-1.3) L 01/29/21 07:35 Estimated GFR > 60 ml/min 01/29/21 07:35 BUN/Creatinine Ratio 25 % 01/29/21 07:35 Glucose 108 mg/dL (75-100) H 01/29/21 07:35 Lactic Acid 1.60 mmol/L (0.7-2.0) 01/26/21 17:24 Calcium 9.4 mg/dL (8.4-10.2) 01/29/21 07:35 Total Bilirubin 0.60 mg/dL (0.1-1.2) 01/27/21 04:46 AST 32 units/L (5-40) 01/27/21 04:46 ALT 26 units/L (7-56) 01/27/21 04:46 Alkaline Phosphatase 170 units/L (35-129) H 01/27/21 04:46 Troponin T < 0.010 ng/mL (0.00-0.029) 01/26/21 13:00 Total Protein 6.2 g/dL (6.3-8.2) L 01/27/21 04:46 Albumin 1.9 g/dL (3.9-5) L 01/27/21 04:46 Albumin/Globulin Ratio 0.4 % 01/27/21 04:46 Triglycerides 78 mg/dL (2-149) 01/26/21 13:32 Cholesterol 78 mg/dL (50-199) 01/26/21 13:32 LDL Cholesterol Direct 43 mg/dL (50-130) L 01/26/21 13:32 HDL Cholesterol 18 mg/dL (40-59) L 01/26/21 13:32 Cholesterol/HDL Ratio 4.33 % 01/26/21 13:32 Nasal Screen MRSA (PCR) Negative (Negative) 01/29/21 06:42 Vancomycin Trough 6.7 ug/mL (5.0-20.0) 01/28/21 16:26 Microbiology: Microbiology 01/26/21 17:24 Peripheral/Venous Blood Culture - Preliminary NO GROWTH AFTER 4 DAYS 01/26/21 17:24 Peripheral/Venous Blood Culture - Preliminary NO GROWTH AFTER 4 DAYS Evans/IV: Voiding Method Urinal Active Medications - Current Medications Current Medications: Generic Name Dose Route Start Last Admin Trade Name Freq PRN Reason Stop Dose Admin Acetaminophen 650 mg 01/27/21 01:04 Acetaminophen 325 Mg Tab PO Q4H PRN Pain MILD(1-3)/Fever >100.5/MCCAIN Benzocaine 2 spray 01/31/21 09:00 Benzocaine 20% [place] 0.5 Ml Unit Dose MM 01/31/21 17:00 PREOP NR Gabapentin 300 mg 01/27/21 22:00 01/30/21 22:01 Gabapentin 300 Mg Cap PO 300 mg QHS SILVIA Administration Hydromorphone HCl 0.5 mg 01/27/21 01:04 01/28/21 13:20 Hydromorphone 1 Mg/1 Ml Inj IV 0.5 mg Q3H PRN Administration Pain , Severe (7-10) Cefepime HCl 2 gm in 100 mls @ 200 mls/hr 01/28/21 14:00 01/31/21 02:45 Cefepime/Ns 2 Gm/100 Ml IV 02/04/21 02:29 200 mls/hr Q12H SILVIA Administration Protocol Sodium Chloride 1,000 mls @ 50 mls/hr 01/31/21 08:30 Nacl 0.9% 1000 Ml IV DIRECT SILVIA Lidocaine 20 ml 01/31/21 09:00 Lidocaine (2%) 20 Mg/1 Ml Vial 20 Ml Mdv INFILTRATI 01/31/21 17:00 ONCE@0900 SILVIA Lidocaine HCl 20 ml 01/31/21 08:30 Lidocaine Viscous 2% 15 Ml Oral Liqd MM 01/31/21 17:00 PREOP NR Methocarbamol 500 mg 01/27/21 10:00 01/30/21 22:01 Methocarbamol 500 Mg Tab PO 500 mg BID SILVIA Administration Metoclopramide HCl 10 mg 01/27/21 01:04 Metoclopramide 10 Mg/2 Ml Inj IV Q6H PRN Nausea And Vomiting Nortriptyline HCl 75 mg 01/27/21 22:00 01/30/21 22:01 Nortriptyline 25 Mg Cap PO 75 mg QHS SILVIA Administration Ondansetron HCl 4 mg 01/27/21 01:04 Ondansetron 4 Mg/2 Ml Inj IV Q8H PRN Nausea And Vomiting Oxycodone/Acetaminophen 1 tab 01/27/21 01:04 Oxycodone /Acetaminophen 5-325mg Tab PO Q6H PRN Pain, Moderate (4-6) Sodium Chloride 10 ml 01/27/21 10:00 01/30/21 22:02 Sodium Chloride 0.9% 10 Ml Flush Syringe IV 10 ml BID SILVIA Administration Sodium Chloride 10 ml 01/27/21 01:04 Sodium Chloride 0.9% 10 Ml Flush Syringe IV PRN PRN LINE FLUSH Nutrition/Malnutrition Assess - Dietary Evaluation Nutrition/Malnutrition Findings: Nutrition Notes Start: 01/27/21 09:02 Freq: Status: Active Protocol: Document 01/27/21 09:02 JESSICA (Rec: 01/27/21 10:32 JESSICA [id number]) Nutrition Notes Need for Assessment generated from: Low BMI Initial or Follow up Assessment Current Diagnosis Hypertension,Malnutrition, Stroke Other Pertinent Diagnosis Postobstructive pneumonia, anemia, Minor stroke Current Diet Regular Diet (since B 01/27). Labs/Tests 01/27: Na 130, Cl 94.9, Cr 0.5 . Pertinent Medications 01/27: Nutritionally unremarkable. Height 6 ft Weight 54.43 kg [place] Body Weight (kg) 80.90 BMI 16.2 Weight Status Underweight Subjective/Other Information Diagnosis of Chronic moderate malnutrition and anemia. Percent of energy/protein needs met: Prescribed Regular Diet provides for energy/protein needs (2,289 Kcal/89 g) during LOS. Burn Absent Trauma Absent GI Symptoms None Food Allergy No Skin Integrity/Comment Clear, warm, dry. Current % PO Good (75-100%) #1 Nutrition Diagnosis Predicted suboptimal energy intake,Malnutrition, Underweight,Food and nutrition -related knowledge deficit Comments: Current diagnosis of Chronic moderate malnutrition and anemia. Etiology Unknown at the time. As Evidenced by Signs and Symptoms Low BMI, abnormal chemistry lab values, MD diagnoses. Is patient on ventilator? No Is Patient Ambulatory and/or Out of Bed Yes REE-([place]-St. Jeor-ambulatory/OOB) [ 1790.490 NUTR.MSJOOB] Kcal/Kg value to use for calculation 40 Approximate Energy Requirements Using 2177 kcal/Kg Calculation Used for Recommendations Kcal/kg Additional Notes Protein: 1.2-1.5 g/Kg/day; 97- 122 g/day; 388-488 Kcal/day ( from IBW). Fluids: 1.0 ml/Kcal/day, or as per MD. Nutrition Intervention Change Diet Order: Continue Regular Diet. Teaching Recipient Patient Learning Readiness Fair Teaching Methods Discussion,Handout Response to Teaching Reinforcement needed Education Handouts Provided AND: General, Healthful Mediterranean Nutrition Therapy. Barriers to Learning Motivation RD phone number provided Yes Patient aware of follow up options Yes Goal #1 Maintain body weight within +/ -3% of current BWt during LOS. Goal #2 Reach and maintain acceptable chemistry lab values during LOS. Goal #3 Provide Pt with educational tools to elicit behavioral changes towards a healthy lifestyle. Follow-Up By: 02/03/21 Additional Comments Continue monitoring acceptance of foods, %PO intake of meals , hydration, and BM.
--- NOTE | 2021-01-31 09:47 | Progress Note ---
Assessment and Plan 65 y/o smoker with emphysema and right lung mass, very proximal in the right mainstem with complete lung collapse 01/31/21: Coags stable enough. Plan to biopsy. Bronch today. See full note post bronch for details. 01/30/21: i ordered the coags I asked for yesterday. Will order NPO after midnight. Bronch set for 0930 am 01/31/21 01/29/21: NPO after midnight on Sunday for Bronch Sunday morning at 0930. Please check Coags tomorrow morning. 01/28/21: Bronch on Sunday. Wean FiO2 as tolerated. ABX. 1. Bronch with biopsy 2. Discussed with patient at bedside 3. Await neurology work up and to make sure no edema/swelling as the likelihood of herniation increases with bronch 4. Guarded to poor prognosis Subjective Date of service: 01/31/21 Interval history: No acute events. Bronch today. Objective Vital Signs - 12hr 01/30/21 01/31/21 01/31/21 23:52 04:00 05:22 Temperature 98.5 F 98.4 F Pulse Rate 117 H 112 H 110 H Respiratory 18 18 Rate Blood Pressure 140/85 125/83 Blood Pressure [Right] O2 Sat by Pulse 99 99 Oximetry 01/31/21 07:50 Temperature 97.9 F Pulse Rate 114 H Respiratory 24 Rate Blood Pressure Blood Pressure 143/94 [Right] O2 Sat by Pulse 99 Oximetry Constitutional: other (appears much older than stated age) Eyes: non-icteric ENT: oropharynx moist Neck: supple Effort: normal Ascultation: Right: diminished breath sounds, Left: clear Percussion: Right: dull Gastrointestinal: normoactive bowel sounds Integumentary: normal CBC and BMP: 01/29/21 07:35 01/29/21 07:35 ABG, PT/INR, D-dimer: ABG ABG pH 7.431 pH Units (7.350-7.450) 01/26/21 17:03 ABG pCO2 39.7 mm Hg 01/26/21 17:03 ABG pO2 112.6 mm Hg (80.0-90.0) H 01/26/21 17:03 ABG O2 Saturation 98.1 % (95.0-99.0) 01/26/21 17:03 PT/INR, D-dimer PT 15.6 Sec. (12.2-14.9) H 01/30/21 12:46 INR 1.12 (0.87-1.13) 01/30/21 12:46 Abnormal lab findings: Abnormal Labs 01/26/21 01/26/21 01/26/21 13:00 13:00 13:00 WBC 16.7 H RBC 3.28 L Hgb 9.1 L Hct 28.1 L MCH MCHC Plt Count 626 H Lymph % (Auto) 6.2 L Moody % (Auto) 9.6 H Lymph # (Auto) 1.0 L Moody # (Auto) 1.6 H Seg Neutrophils % 83.5 H Seg Neutrophils # 13.9 H PT 16.7 H INR 1.22 H APTT 40.8 H ABG pO2 ABG Hemoglobin Sodium 127 L Chloride 89.3 L Creatinine 0.7 L Glucose 121 H Calcium 10.3 H AST 47 H Alkaline Phosphatase 204 H Total Protein Albumin 2.4 L LDL Cholesterol Direct HDL Cholesterol 01/26/21 01/26/21 01/27/21 13:32 17:03 04:46 WBC 15.3 H RBC 3.43 L Hgb 9.4 L Hct 29.8 L MCH 27 L MCHC Plt Count 612 H Lymph % (Auto) 8.6 L Moody % (Auto) 8.9 H Lymph # (Auto) Moody # (Auto) 1.4 H Seg Neutrophils % 81.8 H Seg Neutrophils # 12.5 H PT INR APTT ABG pO2 112.6 H ABG Hemoglobin 9.6 L Sodium Chloride Creatinine Glucose Calcium AST Alkaline Phosphatase Total Protein Albumin LDL Cholesterol Direct 43 L HDL Cholesterol 18 L 01/27/21 01/28/21 01/28/21 04:46 08:51 08:51 WBC 12.9 H RBC 2.89 L Hgb 8.5 L Hct 24.6 L MCH MCHC 35 H Plt Count 522 H Lymph % (Auto) Moody % (Auto) Lymph # (Auto) Moody # (Auto) Seg Neutrophils % Seg Neutrophils # PT INR APTT ABG pO2 ABG Hemoglobin Sodium 130 L 131 L Chloride 94.9 L 97.4 L Creatinine 0.5 L 0.4 L Glucose 102 H Calcium AST Alkaline Phosphatase 170 H Total Protein 6.2 L Albumin 1.9 L LDL Cholesterol Direct HDL Cholesterol 01/29/21 01/29/21 01/30/21 07:35 07:35 12:46 WBC 11.1 H RBC 2.99 L Hgb 8.5 L Hct 26.5 L MCH MCHC Plt Count 521 H Lymph % (Auto) Moody % (Auto) Lymph # (Auto) Moody # (Auto) Seg Neutrophils % Seg Neutrophils # PT 15.6 H INR APTT 41.7 H ABG pO2 ABG Hemoglobin Sodium 131 L Chloride Creatinine 0.4 L Glucose 108 H Calcium AST Alkaline Phosphatase Total Protein Albumin LDL Cholesterol Direct HDL Cholesterol
[2021-01-31] MEDS ORDERED: LIDOCAINE VISCOUS 2% 15 ML ORAL LIQD MM ONE (09:55)
[2021-01-31] MEDS ORDERED: LIDOCAINE (1%) 10 MG/1 ML VIAL 20 ML MDV INFILTRATI ONE (09:55)
[2021-01-31] MEDS ORDERED: BENZOCAINE 20% TOP SPRAY 0.5 ML UNIT DOSE MM ONE (09:55)
[2021-01-31] MEDS ORDERED: LIDOCAINE MPF (2%) 20 MG/1 ML VIAL 5 ML ONE (09:59)
--- NOTE | 2021-01-31 09:59 | Anesthesia Consultation ---
Anesthesia Consult and Med Hx Date of service: 01/31/21 - Airway Anesthetic Teeth Evaluation: Edentulous ROM Head & Neck: Inadequate (decreased extension) Mental/Hyoid Distance: Adequate Mallampati Class: Class III Intubation Access Assessment: Possibly Difficult - Pre-Operative Health Status ASA Pre-Surgery Classification: ASA4 Proposed Anesthetic Plan: MAC - Pulmonary Hx Smoking: Yes (former smoker quit 6 months) Hx Respiratory Symptoms: Yes SOB: Yes Home Oxygen Therapy: No - Cardiovascular System Hx Hypertension: Yes (noted in chart review, patient denies. BP controlled last several days.) Hx Heart Attack/AMI: No - Central Nervous System CVA: Yes (noted in chart review but patient denies) - Endocrine Hx Renal Disease: No (hyponatremia this admission) Hx Liver Disease: No Hx Insulin Dependent Diabetes: No Hx Non-Insulin Dependent Diabetes: No Hx Thyroid Disease: No - Hematic Hx Anemia: Yes - Other Systems Hx Obesity: No - Additional Comments Anesthesia Medical History Comments: No hx anesthetic complications. R lung mass obstructing right mainstem bronchus with post obstructive PNA now scheduled for bronch. Previously on venturi mask 35% intermittently.
[2021-01-31] MEDS ORDERED: propofoL 200 MG/20 ML VIAL IV ONE (10:00)
[2021-01-31] MEDS ORDERED: fentaNYL 100 MCG/2 ML INJ ONE (10:00)
--- NOTE | 2021-01-31 10:02 | Anesthesia Day of Surgery ---
Anesthesia Day of Surgery - Day of Surgery Patient Examined: Yes Patient H&P Reviewed: Yes Patient is NPO: Yes
[2021-01-31] MEDS ORDERED: LORazepam 2 MG/ML VIAL IM ONE (11:30)
[2021-01-31] MEDS ORDERED: NORepinephrine/NS 4 MG-250 ML 4 MG/250 ML BAG IV ONE (11:41)
--- NOTE | 2021-01-31 11:42 | XRay Report ---
CHEST 1 VIEW 01/31/2021 10:35 AM INDICATION / CLINICAL INFORMATION: CArdiac arrest. COMPARISON: Chest x-ray 01/26/2021 FINDINGS: SUPPORT DEVICES: ET tube has tip 5.5 cm above kandy HEART / MEDIASTINUM: No significant abnormality. LUNGS / PLEURA: Near complete opacification right hemithorax again noted. Multifocal mild parenchymal disease left lung characteristic for pneumonia No pneumothorax. ADDITIONAL FINDINGS: No significant additional findings. IMPRESSION: 1. New left-sided pneumonia. 2. Near complete opacification right hemithorax unchanged Signer Name: Luis Manuel Baez MD Signed: 01/31/2021 11:38 AM Workstation Name: [id number]
[2021-01-31] MEDS: NORepinephrine/NS 4 MG-250 ML 4 MG/250 ML BAG IV SCH (11:45)
--- NOTE | 2021-01-31 11:54 | Event Note ---
Date: 01/31/21 Patient had respiratory arrest during the procedure. Required intubation and lost pulse. Was coded times 2 and now ROSC achieved and maintained. Patient had a distal obstruction to the ET tube like from mass and friable tissue. Used the therapeutic scope to dislodge the obstruction and did but unable to guide scope into left mainstem. Got patient up to ICU. He is awake and following commands. Placed right femoral CVL as all peripherals had intubated. Will attempt to repeat bronch now that patient has stable airway. Sample was obtai cesra during the code and placed in formalin but will attempt to get repeat sample. Prognosis is still guarded, but promising in regards to mental state as he is awake and following commands post code. CCT 31 minutes.
[2021-01-31] MEDS ORDERED: MIDAZOLAM 2 MG/2 ML INJ ONE (12:00)
[2021-01-31] MEDS ORDERED: fentaNYL 100 MCG/2 ML INJ IM ONE (12:00)
[2021-01-31] MEDS ORDERED: EPINEPHrine/PF 1 MG/1 ML INJ ONE ×2 (12:13→16:17)
--- NOTE | 2021-01-31 12:13 | Event Note ---
Date: 01/31/21 (Intraoperative Cardiac Arrest) I responded to CODE BLUE in endoscopy suite for patient undergoing bronchoscopy under MAC. On my arrival, chest compressions were in progress, crash cart was being mobilized, and ELECTRO MECHANICAL TECHNICIAN was at head of bed performing intubation. I was informed that patient was initially stable for the start of the procedure but then experienced precipitous oxygen desaturation and became pulseless. Presumed hypoxic arrest. After intubation + endotracheal suction, 2 amp epi, and 1 amp bicarb, ROSC was achieve and patient stabilized briefly. Patient then became impossible to ventilate via AMBU. It Applications Analyst performed bronchoscopy via ETT and was able to relieve the obstruction. Attempted left mainstem bronchial intubation over bronchoscope but unsuccessful. During this time, patient again desaturated and became pulseless, so compressions were restarted and 1 amp epi given. Achieved ROSC and patient noted to be HD stable with SpO2 >90% prior to and during transport to ICU. See CODE sheet for approximate times.
--- NOTE | 2021-01-31 12:28 | Post Anesthesia Evaluation ---
- Post Anesthesia Evaluation Patient Participated: No Airway Patent: Yes Stable Respiratory Function: Yes Nausea/Vomiting: No (unable to assess) Pain Manageable: Yes (unable to assess) Adequeate Hydration: Yes (normotensive, no pressor support, IVF bolus ongoing) Anesthesia Complications: Yes (intra-procedural cardiac arrest, see event note and CODE sheet) Block Receding Appropriately: Not Applicable Patient on Ventilator: Yes Other Comments: On arrival to ICU, patient transferred to ICU bed and placed on vent by RT. VS normotensive, tachycardic, w/ SpO2>90%. Patient opened eyes during transfer to bed but otherwise not following commands or making purposeful movement. Hand off given to TELEVISION INSPECTOR and patient left in critical but stable condition in care of cd mixer at bedside.
--- NOTE | 2021-01-31 12:42 | Procedure Note ---
Date of procedure: 01/31/21 Pre-op diagnosis: Right Mainstem Mass Post-op diagnosis: same Procedure: Patient intubated, passed therapeutic scope with no issue. Right mainstem mass seen. Complete occlusion of right mainstem. Pictures taken and brushing done as well. There was a large piece of tissue obtained during the code that will be sent for cytology as well. Tolerated well. Remains sedated and on pressors but small amount. Anesthesia: GETA Surgeon: WAYNE YOUNG Estimated blood loss: none Specimen disposition: to lab Condition: critical Disposition: ICU
[2021-01-31] MEDS: fentaNYL 100 MCG/2 ML INJ IV PRN ×2 (14:26→20:28)
[2021-01-31 14:45] LABS: ABG Base Excess 4.4 mmol/L (-2.0-3.0); ABG HCO3 27.6 mmol/L (20.0-26.0); ABG Methemoglobin 0.4 % (0.0-1.5); ABG Oxygen Saturation 99.5 % (95.0-99.0); ABG PCO2 35.6 mm Hg; ABG PH 7.507 pH Units (7.350-7.450)
[2021-01-31] MEDS ORDERED: EPINEPHrine 1 MG/10 ML SYRINGE ONE (16:15)
[2021-01-31] MEDS ORDERED: SODIUM BICARB 8.4% 50 MEQ/50 ML SYRINGE IV ONE (16:15)
[2021-01-31 16:20] LABS: ABG PO2 300.7 mm Hg (80.0-90.0)
[2021-01-31 16:24] LABS: ABG PCO2 35.6 mm Hg; ABG PH 7.507 pH Units (7.350-7.450); ABG PO2 300.7 mm Hg (80.0-90.0)
[2021-01-31 16:25] LABS: ABG Base Excess 4.4 mmol/L (-2.0-3.0); ABG HCO3 27.6 mmol/L (20.0-26.0); ABG Methemoglobin 0.4 % (0.0-1.5); ABG Oxygen Saturation 99.5 % (95.0-99.0)
[2021-01-31] MEDS: PANTOPRAZOLE 40 MG INJ IV SCH (18:20)
[2021-02-01] MEDS: CEFEPIME/NS 2 GM/100 ML 2 GM/100 ML BAG IV SCH ×2 (03:00→13:38)
[2021-02-01] MEDS: HYDROmorphone 1 MG/1 ML INJ IV PRN (04:30)
[2021-02-01] MEDS: NORepinephrine/NS 4 MG-250 ML 4 MG/250 ML BAG IV SCH (04:37)
[2021-02-01 05:04] LABS: Hematocrit 26.4 % (35.5-45.6); Hemoglobin 8.4 gm/dl (11.8-15.2); Mean Corpuscular HGB Conc 32 % (32-34); Mean Corpuscular Volume 87 fl (84-94); Platelet Count 453 K/mm3 (140-440); Red Blood Count 3.06 M/mm3 (3.65-5.03); Red Cell Distribution Width 14.8 % (13.2-15.2)
[2021-02-01 05:31] LABS: Alanine Aminotransferase 47 units/L (7-56); Albumin 2.2 g/dL (3.9-5); Blood Urea Nitrogen 12 mg/dL (9-20); Calcium 10.6 mg/dL (8.4-10.2); Hemolysis Index 0
[2021-02-01 05:33] LABS: BUN/Creatinine Ratio 24
--- NOTE | 2021-02-01 09:25 | Post Anesthesia Evaluation ---
- Post Anesthesia Evaluation Patient Participated: No Airway Patent: Yes Stable Respiratory Function: Yes Nausea/Vomiting: No Temp > 96.8F: Yes Pain Manageable: Yes Adequeate Hydration: Yes Anesthesia Complications: No Block Receding Appropriately: Not Applicable Patient on Ventilator: Yes Other Comments: In ICU with Norepinephrine drip in place. Vital signs stable.
[2021-02-01] MEDS: PANTOPRAZOLE 40 MG INJ IV SCH (10:44)
--- NOTE | 2021-02-01 12:21 | Progress Note ---
Assessment and Plan 65 y/o smoker with emphysema and right lung mass, very proximal in the right mainstem with complete lung collapse 02/01/21: Successfully extubated this am and doing well. Await path results. Ok to transition back to the 4th floor. 01/31/21: Coags stable enough. Plan to biopsy. Bronch today. See full note post bronch for details. 01/30/21: i ordered the coags I asked for yesterday. Will order NPO after midnight. Bronch set for 0930 am 01/31/21 01/29/21: NPO after midnight on Sunday for Bronch Sunday morning at 0930. Plea se check Coags tomorrow morning. 01/28/21: Bronch on Sunday. Wean FiO2 as tolerated. ABX. 1. Bronch with biopsy 2. Discussed with patient at bedside 3. Await neurology work up and to make sure no edema/swelling as the likelihood of herniation increases with bronch 4. Guarded to poor prognosis Subjective Date of service: 02/01/21 Interval history: Awake and alert. Follows commands. Successfully extubated this morning. Still on levo but only at 2. Objective Vital Signs - 12hr 02/01/21 02/01/21 02/01/21 00:21 00:30 00:41 Pulse Rate 117 H 114 H 118 H Pulse Rate [ From Monitor] Respiratory 15 15 17 Rate Blood Pressure 113/76 115/83 115/83 O2 Sat by Pulse 100 100 100 Oximetry 02/01/21 02/01/21 02/01/21 00:51 01:01 01:11 Pulse Rate 116 H 117 H 117 H Pulse Rate [ From Monitor] Respiratory 15 16 15 Rate Blood Pressure 114/73 112/68 114/73 O2 Sat by Pulse 100 100 100 Oximetry 02/01/21 02/01/21 02/01/21 01:20 01:31 01:41 Pulse Rate 117 H 115 H 119 H Pulse Rate [ From Monitor] Respiratory 17 18 18 Rate Blood Pressure 112/81 129/58 112/81 O2 Sat by Pulse 100 96 100 Oximetry 02/01/21 02/01/21 02/01/21 01:51 02:01 02:11 Pulse Rate 118 H 118 H 117 H Pulse Rate [ From Monitor] Respiratory 15 14 15 Rate Blood Pressure 120/72 120/72 120/72 O2 Sat by Pulse 100 100 100 Oximetry 02/01/21 02/01/21 02/01/21 02:21 02:30 02:41 Pulse Rate 117 H 116 H 114 H Pulse Rate [ From Monitor] Respiratory 16 16 16 Rate Blood Pressure 120/72 114/78 114/78 O2 Sat by Pulse 100 100 100 Oximetry 02/01/21 02/01/21 02/01/21 02:51 03:00 03:11 Pulse Rate 116 H 118 H 117 H Pulse Rate [ From Monitor] Respiratory 14 15 17 Rate Blood Pressure 108/74 97/72 97/72 O2 Sat by Pulse 100 100 100 Oximetry 02/01/21 02/01/21 02/01/21 03:21 03:31 03:41 Pulse Rate 116 H 118 H 117 H Pulse Rate [ From Monitor] Respiratory 16 15 17 Rate Blood Pressure 106/74 108/70 108/70 O2 Sat by Pulse 100 100 100 Oximetry 02/01/21 02/01/21 02/01/21 03:51 04:00 04:10 Pulse Rate 119 H 118 H 121 H Pulse Rate [ From Monitor] Respiratory 14 15 13 Rate Blood Pressure 112/66 101/72 101/72 O2 Sat by Pulse 96 100 100 Oximetry 02/01/21 02/01/21 02/01/21 04:21 04:30 04:41 Pulse Rate 123 H 125 H 122 H Pulse Rate [ From Monitor] Respiratory 18 15 14 Rate Blood Pressure 101/72 96/66 96/66 O2 Sat by Pulse 100 100 100 Oximetry 02/01/21 02/01/21 02/01/21 04:51 04:52 05:00 Pulse Rate 121 H 119 H 119 H Pulse Rate [ From Monitor] Respiratory 14 14 Rate Blood Pressure 96/57 96/57 96/61 O2 Sat by Pulse 100 100 100 Oximetry 02/01/21 02/01/21 02/01/21 05:01 05:11 05:21 Pulse Rate 117 H 117 H Pulse Rate [ From Monitor] Respiratory 15 16 Rate Blood Pressure 96/61 96/61 O2 Sat by Pulse 100 100 100 Oximetry 02/01/21 02/01/21 02/01/21 05:30 05:41 05:51 Pulse Rate 116 H 117 H 115 H Pulse Rate [ From Monitor] Respiratory 15 16 15 Rate Blood Pressure 93/63 93/63 98/64 O2 Sat by Pulse 100 100 100 Oximetry 02/01/21 02/01/21 02/01/21 06:00 06:11 06:21 Pulse Rate 113 H 112 H 112 H Pulse Rate [ From Monitor] Respiratory 16 15 15 Rate Blood Pressure 98/65 98/65 97/70 O2 Sat by Pulse 100 Oximetry 02/01/21 02/01/21 02/01/21 06:31 06:41 06:51 Pulse Rate 114 H 116 H 116 H Pulse Rate [ From Monitor] Respiratory 15 21 22 Rate Blood Pressure 108/68 O2 Sat by Pulse Oximetry 02/01/21 02/01/21 02/01/21 07:00 07:11 07:21 Pulse Rate 117 H 114 H 114 H Pulse Rate [ From Monitor] Respiratory 19 20 20 Rate Blood Pressure 105/70 105/70 96/71 O2 Sat by Pulse 100 100 Oximetry 02/01/21 02/01/21 02/01/21 07:30 07:41 07:51 Pulse Rate 115 H 115 H 114 H Pulse Rate [ From Monitor] Respiratory 20 19 19 Rate Blood Pressure 100/74 100/74 104/68 O2 Sat by Pulse 100 Oximetry 02/01/21 02/01/21 02/01/21 08:00 08:10 08:11 Pulse Rate 114 H 116 H Pulse Rate [ 113 H From Monitor] Respiratory 17 18 Rate Blood Pressure 100/72 100/72 O2 Sat by Pulse 100 Oximetry 02/01/21 02/01/21 02/01/21 08:21 08:30 08:41 Pulse Rate 115 H 114 H 114 H Pulse Rate [ From Monitor] Respiratory 18 17 18 Rate Blood Pressure 114/79 108/70 108/70 O2 Sat by Pulse Oximetry 02/01/21 02/01/21 02/01/21 08:51 09:01 09:11 Pulse Rate 114 H 119 H 114 H Pulse Rate [ From Monitor] Respiratory 16 20 23 Rate Blood Pressure 106/82 124/79 124/79 O2 Sat by Pulse 100 Oximetry 02/01/21 02/01/21 02/01/21 09:21 09:30 09:34 Pulse Rate 113 H 112 H 114 H Pulse Rate [ From Monitor] Respiratory 22 23 Rate Blood Pressure 102/75 106/77 106/77 O2 Sat by Pulse 100 Oximetry 02/01/21 02/01/21 02/01/21 09:41 09:51 09:59 Pulse Rate 113 H 117 H Pulse Rate [ From Monitor] Respiratory 25 H 23 Rate Blood Pressure 106/77 105/76 O2 Sat by Pulse 100 100 98 Oximetry 02/01/21 02/01/21 02/01/21 10:00 10:11 10:21 Pulse Rate 114 H 115 H 114 H Pulse Rate [ From Monitor] Respiratory 28 H 27 H 26 H Rate Blood Pressure 117/84 117/84 99/75 O2 Sat by Pulse 100 100 Oximetry 02/01/21 02/01/21 02/01/21 10:30 10:41 10:50 Pulse Rate 115 H 112 H Pulse Rate [ From Monitor] Respiratory 25 H 26 H 26 H Rate Blood Pressure 106/76 106/76 124/79 O2 Sat by Pulse 100 100 99 Oximetry 02/01/21 02/01/21 02/01/21 11:00 11:11 11:21 Pulse Rate 111 H 109 H 111 H Pulse Rate [ From Monitor] Respiratory 25 H 25 H 28 H Rate Blood Pressure 97/66 97/66 98/62 O2 Sat by Pulse 99 100 99 Oximetry 02/01/21 02/01/21 02/01/21 11:30 11:41 11:50 Pulse Rate 110 H 105 H 113 H Pulse Rate [ From Monitor] Respiratory 25 H 26 H 22 Rate Blood Pressure 107/72 99/69 100/68 O2 Sat by Pulse 100 100 Oximetry 02/01/21 12:00 Pulse Rate 109 H Pulse Rate [ From Monitor] Respiratory 24 Rate Blood Pressure 97/70 O2 Sat by Pulse 99 Oximetry Constitutional: other (appears much older than stated age) Eyes: non-icteric ENT: oropharynx moist Neck: supple Effort: normal Ascultation: Right: diminished breath sounds, Left: clear Percussion: Right: dull Gastrointestinal: normoactive bowel sounds Integumentary: normal CBC and BMP: 02/01/21 04:27 02/01/21 04:27 ABG, PT/INR, D-dimer: ABG ABG pH 7.507 pH Units (7.350-7.450) H 01/31/21 14:02 ABG pH Cancelled 01/31/21 14:02 POC ABG pCO2 Cancelled 01/31/21 14:02 ABG pCO2 35.6 mm Hg 01/31/21 14:02 ABG pCO2 35.6 mm Hg 01/31/21 14:02 POC ABG pO2 Cancelled 01/31/21 14:02 ABG pO2 300.7 mm Hg (80.0-90.0) H 01/31/21 14:02 ABG pO2 300.7 mm Hg (80.0-90.0) H 01/31/21 14:02 POC ABG HCO3 Cancelled 01/31/21 14:02 ABG O2 Saturation 99.5 % (95.0-99.0) H 01/31/21 14:02 ABG O2 Saturation Cancelled 01/31/21 14:02 PT/INR, D-dimer PT 15.6 Sec. (12.2-14.9) H 01/30/21 12:46 INR 1.12 (0.87-1.13) 01/30/21 12:46 Abnormal lab findings: Abnormal Labs 01/26/21 01/26/21 01/26/21 13:00 13:00 13:00 WBC 16.7 H RBC 3.28 L Hgb 9.1 L Hct 28.1 L MCH MCHC Plt Count 626 H Lymph % (Auto) 6.2 L Mitchell % (Auto) 9.6 H Lymph # (Auto) 1.0 L Mitchell # (Auto) 1.6 H Seg Neutrophils % 83.5 H Seg Neutrophils # 13.9 H PT 16.7 H INR 1.22 H APTT 40.8 H ABG pH ABG pO2 ABG HCO3 ABG O2 Saturation ABG Base Excess ABG Hemoglobin Sodium 127 L Chloride 89.3 L Creatinine 0.7 L Glucose 121 H Calcium 10.3 H AST 47 H Alkaline Phosphatase 204 H Total Protein Albumin 2.4 L LDL Cholesterol Direct HDL Cholesterol 01/26/21 01/26/21 01/27/21 13:32 17:03 04:46 WBC 15.3 H RBC 3.43 L Hgb 9.4 L Hct 29.8 L MCH 27 L MCHC Plt Count 612 H Lymph % (Auto) 8.6 L Mitchell % (Auto) 8.9 H Lymph # (Auto) Mitchell # (Auto) 1.4 H Seg Neutrophils % 81.8 H Seg Neutrophils # 12.5 H PT INR APTT ABG pH ABG pO2 112.6 H ABG HCO3 ABG O2 Saturation ABG Base Excess ABG Hemoglobin 9.6 L Sodium Chloride Creatinine Glucose Calcium AST Alkaline Phosphatase Total Protein Albumin LDL Cholesterol Direct 43 L HDL Cholesterol 18 L 01/27/21 01/28/21 01/28/21 04:46 08:51 08:51 WBC 12.9 H RBC 2.89 L Hgb 8.5 L Hct 24.6 L MCH MCHC 35 H Plt Count 522 H Lymph % (Auto) Mitchell % (Auto) Lymph # (Auto) Mitchell # (Auto) Seg Neutrophils % Seg Neutrophils # PT INR APTT ABG pH ABG pO2 ABG HCO3 ABG O2 Saturation ABG Base Excess ABG Hemoglobin Sodium 130 L 131 L Chloride 94.9 L 97.4 L Creatinine 0.5 L 0.4 L Glucose 102 H Calcium AST Alkaline Phosphatase 170 H Total Protein 6.2 L Albumin 1.9 L LDL Cholesterol Direct HDL Cholesterol 01/29/21 01/29/21 01/30/21 07:35 07:35 12:46 WBC 11.1 H RBC 2.99 L Hgb 8.5 L Hct 26.5 L MCH MCHC Plt Count 521 H Lymph % (Auto) Mitchell % (Auto) Lymph # (Auto) Mitchell # (Auto) Seg Neutrophils % Seg Neutrophils # PT 15.6 H INR APTT 41.7 H ABG pH ABG pO2 ABG HCO3 ABG O2 Saturation ABG Base Excess ABG Hemoglobin Sodium 131 L Chloride Creatinine 0.4 L Glucose 108 H Calcium AST Alkaline Phosphatase Total Protein Albumin LDL Cholesterol Direct HDL Cholesterol 01/31/21 01/31/21 02/01/21 14:02 14:02 04:27 WBC 14.2 H RBC 3.06 L Hgb 8.4 L Hct 26.4 L MCH 27 L MCHC Plt Count 453 H Lymph % (Auto) Mitchell % (Auto) Lymph # (Auto) Mitchell # (Auto) Seg Neutrophils % Seg Neutrophils # PT INR APTT ABG pH 7.507 H ABG pO2 300.7 H 300.7 H ABG HCO3 27.6 H 27.6 H ABG O2 Saturation 99.5 H ABG Base Excess 4.4 H 4.4 H ABG Hemoglobin 9.2 L Sodium Chloride Creatinine Glucose Calcium AST Alkaline Phosphatase Total Protein Albumin LDL Cholesterol Direct HDL Cholesterol 02/01/21 04:27 WBC RBC Hgb Hct MCH MCHC Plt Count Lymph % (Auto) Mitchell % (Auto) Lymph # (Auto) Mitchell # (Auto) Seg Neutrophils % Seg Neutrophils # PT INR APTT ABG pH ABG pO2 ABG HCO3 ABG O2 Saturation ABG Base Excess ABG Hemoglobin Sodium 133 L Chloride 96.9 L Creatinine 0.5 L Glucose 104 H Calcium 10.6 H AST 54 H Alkaline Phosphatase 163 H Total Protein Albumin 2.2 L LDL Cholesterol Direct HDL Cholesterol
[2021-02-01 12:38] LABS: ANA Screen, IFA Negative (Negative)
--- NOTE | 2021-02-01 14:24 | Progress Note ---
<LAKSHMI ALEXANDRA - Last Filed: 02/01/21 17:19> Assessment and Plan Assessment and plan: This is a [id number]-dig male a current construction craft laborer with a history of CVA with left side residual and HTN who came is complaining of increased weakness on the left side. Neuro workup was unremarkable, however initial CXR in the ED was abnormal which warranted for further workup which reveals a right lung mass proximal to the right mainstem with complete lung collapse. Patient had a respiratory arrest and lost pulse during a bronch with biopsy by pulmonary, ACLS was intiated with ROSC, then patient was intubated and transferred to the ICU for further management. Hospital Course to Date: 02/01/21- Patient was extubated to NC, AAO, follwing commands. Remains on low dose Levophed, plan to titrate gtt. If BP remains stable without the gtt plan to to transfer to floor this afternoon. Assessment and Plan #H/o CVA #Left-sided weakness - 01/26 CT Head showed no acute intracranial abnormality. Chronic infarct in the left subinsular region - 01/26 Brain MRI with microscopic angiopathy with old infarct involving left basal ganglia. There is no evidence of acute infarction - 01/27 CTA head with no significant abnormal - 01/27 rpt MRI brain with no acute intracranial abnormality. Volume loss and chronic white matter changes. Chronic focal infarct in the left basal ganglia region. - Neurology on consult, appreciate recommendations - Patient is intact, AAO, move all extremities - Sedation is off - Continue ASA and lipitor - Avoid benzodiazepine to reduce the possibility of delirium - Prn analgesia for CPOT greater than 3 - Maintenance of sleep-wake cycle, avoid delirium #Hypotension most like due to sedation #H/o Hypertension #s/p Respiratory arresst/ pulseless - ACLS with ROSC - Patient on low dose levophed this am - Plan to titrate levo gtt off - Continue blood pressure monitor per protocol to maintain a MAP above 65 - Consider restarting PO antihypertensive once stable #Right Lung Mass #Postobstructive Pneumonia #S/p respiratory arrest - 01/26 Chest x-ray- Complete opacification of the right lung most consistent with atelectasis with suspected mass occluding the right mainstem bronchus recommend - 01/26 CTA chest- Central right lung mass with occlusion of the right mainstem bronchus and partial encasement of the right lower lobe pulmonary vessels. There is minimal filling of the right lower lobe pulmonary arterial and venous distribution. Extensive postobstructive pneumonia and pleural effusion also noted on the right. - Pulmonary on consult, appreciate recommendations - 01/31 s/p bronch with biopsy by [facility] - 01/01 ETT, extubated today - On 4L NC SPO2 96 to 100% - Continue SPO2 monitoring for SPO2 goal above 95% - Heme-onc evaluation if needed pending biopsy #GI: Severe protein calorie malnutrition - Currently NPO - Plan for bedside swallow if pass resume diet - Continue protonix and reglan #:Hyponatremia - Up trendingh 133 this am - IVF D/C - Continue to monitor electrolytes - Am labs ordered #Postobstructive Pneumonia #Leukocytosis - 01/26 B.cultX2 with no growth, 01/31 Tracheal aspirate pending - WBCs up from 11.1 to 14.2 - Patient is afebrile - Continue IV ABc cefepine - If leukocytosis persist and/or patient become febrile, consider ID consult #Endo: NAP - Avoid hypoglycemia The high probability of a clinically significant, sudden or life threatening deterioration of the [Respiratory, Neuro] system(s) required my full and direct attention, intervention and personal management. The aggregate critical care time was [60] minutes. This time is in addition to time spent performing reported procedures but includes the following: [x] Data Review and interpretation [x] Patient assessment and monitoring of vital signs [x] Documentation [x] Medication orders and management Disposition Plan: ICU Total Time Spent with Patient (Minutes): 60 History Interval history: Patient seen and examined at the beside. Awake and alert, s/p extubation on NC. Patient is stated he is feeling a lot better since the tube is out. Hospitalist Physical - Constitutional Vitals: Temp Pulse Resp BP Pulse Ox 97.6 F 109 H 26 H 122/79 100 01/31/21 12:00 02/01/21 13:41 02/01/21 13:41 02/01/21 13:41 02/01/21 13:41 General appearance: Present: no acute distress, cachectic HEART Score - HEART Score EKG: Normal Age: 45-65 Troponin: Troponin T < 0.010 ng/mL (0.00-0.029) 01/26/21 13:00 Troponin: 1-3x normal limit - Critical Actions Critical Actions: 0-3 pts:0.9-1.7%risk of adverse cardiac event.Candidate for discharge Results - Labs CBC & Chem 7: 02/01/21 04:27 02/01/21 04:27 Labs: Laboratory Last Values WBC 14.2 K/mm3 (4.5-11.0) H 02/01/21 04:27 RBC 3.06 M/mm3 (3.65-5.03) L 02/01/21 04:27 Hgb 8.4 gm/dl (11.8-15.2) L 02/01/21 04:27 Hct 26.4 % (35.5-45.6) L 02/01/21 04:27 MCV 87 fl (84-94) 02/01/21 04:27 MCH 27 pg (28-32) L 02/01/21 04:27 MCHC 32 % (32-34) 02/01/21 04:27 RDW 14.8 % (13.2-15.2) 02/01/21 04:27 Plt Count 453 K/mm3 (140-440) H 02/01/21 04:27 Lymph % (Auto) 8.6 % (13.4-35.0) L 01/27/21 04:46 [place] % (Auto) 8.9 % (0.0-7.3) H 01/27/21 04:46 Eos % (Auto) 0.3 % (0.0-4.3) 01/27/21 04:46 Baso % (Auto) 0.4 % (0.0-1.8) 01/27/21 04:46 Lymph # (Auto) 1.3 K/mm3 (1.2-5.4) 01/27/21 04:46 [place] # (Auto) 1.4 K/mm3 (0.0-0.8) H 01/27/21 04:46 Eos # (Auto) 0.0 K/mm3 (0.0-0.4) 01/27/21 04:46 Baso # (Auto) 0.1 K/mm3 (0.0-0.1) 01/27/21 04:46 Seg Neutrophils % 81.8 % (40.0-70.0) H 01/27/21 04:46 Seg Neutrophils # 12.5 K/mm3 (1.8-7.7) H 01/27/21 04:46 ESR > 140.0 mm/Hr (0-20) 01/26/21 13:00 PT 15.6 Sec. (12.2-14.9) H 01/30/21 12:46 INR 1.12 (0.87-1.13) 01/30/21 12:46 APTT 41.7 Sec. (24.2-36.6) H 01/30/21 12:46 ABG pH 7.507 pH Units (7.350-7.450) H 01/31/21 14:02 ABG pH Cancelled 01/31/21 14:02 POC ABG pCO2 Cancelled 01/31/21 14:02 ABG pCO2 35.6 mm Hg 01/31/21 14:02 ABG pCO2 35.6 mm Hg 01/31/21 14:02 POC ABG pO2 Cancelled 01/31/21 14:02 ABG pO2 300.7 mm Hg (80.0-90.0) H 01/31/21 14:02 ABG pO2 300.7 mm Hg (80.0-90.0) H 01/31/21 14:02 POC ABG HCO3 Cancelled 01/31/21 14:02 ABG HCO3 27.6 mmol/L (20.0-26.0) H 01/31/21 14:02 ABG HCO3 27.6 mmol/L (20.0-26.0) H 01/31/21 14:02 ABG O2 Saturation 99.5 % (95.0-99.0) H 01/31/21 14:02 ABG O2 Saturation Cancelled 01/31/21 14:02 ABG O2 Content 13.4 (0.0-44) 01/31/21 14:02 ABG O2 Content Cancelled 01/31/21 14:02 POC ABG Base Excess Cancelled 01/31/21 14:02 ABG Base Excess 4.4 mmol/L (-2.0-3.0) H 01/31/21 14:02 ABG Base Excess 4.4 mmol/L (-2.0-3.0) H 01/31/21 14:02 ABG Hemoglobin 9.2 gm/dl (14.0-18.0) L 01/31/21 14:02 ABG Hemoglobin Cancelled 01/31/21 14:02 ABG Oxyhemoglobin Cancelled 01/31/21 14:02 ABG Carboxyhemoglobin 1.3 % (0.0-5.0) 01/31/21 14:02 ABG Carboxyhemoglobin 1.3 % (0.0-5.0) 01/31/21 14:02 ABG Methemoglobin 0.4 % (0.0-1.5) 01/31/21 14:02 ABG Methemoglobin Cancelled 01/31/21 14:02 ABG Sodium Cancelled 01/31/21 14:02 ABG Potassium Cancelled 01/31/21 14:02 ABG Chloride Cancelled 01/31/21 14:02 ABG Glucose Cancelled 01/31/21 14:02 ABG Lactate Cancelled 01/31/21 14:02 Oxyhemoglobin 97.8 % (95.0-99.0) 01/31/21 14:02 Oxyhemoglobin 97.8 % (95.0-99.0) 01/31/21 14:02 Carboxyhemoglobin Cancelled 01/31/21 14:02 FiO2 100 % 01/31/21 14:02 FiO2 100 % 01/31/21 14:02 FiO2 % Cancelled 01/31/21 14:02 Sodium 133 mmol/L (137-145) L 02/01/21 04:27 Potassium 4.6 mmol/L (3.6-5.0) 02/01/21 04:27 Chloride 96.9 mmol/L (98-107) L 02/01/21 04:27 Carbon Dioxide 27 mmol/L (22-30) 02/01/21 04:27 Anion Gap 14 mmol/L 02/01/21 04:27 BUN 12 mg/dL (9-20) 02/01/21 04:27 Creatinine 0.5 mg/dL (0.8-1.3) L 02/01/21 04:27 Estimated GFR > 60 ml/min 02/01/21 04:27 BUN/Creatinine Ratio 24 % 02/01/21 04:27 Glucose 104 mg/dL (75-100) H 02/01/21 04:27 Lactic Acid 1.60 mmol/L (0.7-2.0) 01/26/21 17:24 Calcium 10.6 mg/dL (8.4-10.2) H 02/01/21 04:27 Total Bilirubin 0.50 mg/dL (0.1-1.2) 02/01/21 04:27 Bilirubin Cancelled 01/31/21 14:02 AST 54 units/L (5-40) H 02/01/21 04:27 ALT 47 units/L (7-56) 02/01/21 04:27 Alkaline Phosphatase 163 units/L (35-129) H 02/01/21 04:27 Troponin T < 0.010 ng/mL (0.00-0.029) 01/26/21 13:00 Total Protein 6.3 g/dL (6.3-8.2) 02/01/21 04:27 Albumin 2.2 g/dL (3.9-5) L 02/01/21 04:27 Albumin/Globulin Ratio 0.5 % 02/01/21 04:27 Triglycerides 78 mg/dL (2-149) 01/26/21 13:32 Cholesterol 78 mg/dL (50-199) 01/26/21 13:32 LDL Cholesterol Direct 43 mg/dL (50-130) L 01/26/21 13:32 HDL Cholesterol 18 mg/dL (40-59) L 01/26/21 13:32 Cholesterol/HDL Ratio 4.33 % 01/26/21 13:32 Arterial Blood Glucose Cancelled 01/31/21 14:02 Arterial Blood Ionized Calcium Cancelled 01/31/21 14:02 Nasal Screen MRSA (PCR) Negative (Negative) 01/29/21 06:42 Vancomycin Trough 6.7 ug/mL (5.0-20.0) 01/28/21 16:26 TAMIA Screen Negative (Negative) 01/27/21 13:36 Microbiology: Microbiology 01/31/21 17:13 Tracheal Aspirate Sputum Culture - Preliminary 01/26/21 17:24 Peripheral/Venous Blood Culture - Final NO GROWTH AFTER 5 DAYS 01/26/21 17:24 Peripheral/Venous Blood Culture - Final NO GROWTH AFTER 5 DAYS Evans/IV: Voiding Method Condom Catheter Active Medications - Current Medications Current Medications: Generic Name Dose Route Start Last Admin Trade Name Freq PRN Reason Stop Dose Admin Acetaminophen 650 mg 01/27/21 01:04 Acetaminophen 325 Mg Tab PO Q4H PRN Pain MILD(1-3)/Fever >100.5/MCCAIN Fentanyl 50 mcg 01/31/21 13:16 01/31/21 20:28 Fentanyl 100 Mcg/2 Ml Inj IV 50 mcg Q2H PRN Administration Pain, Moderate (4-6) Cefepime HCl 2 gm in 100 mls @ 200 mls/hr 01/28/21 14:00 02/01/21 13:38 Cefepime/Ns 2 Gm/100 Ml IV 02/04/21 02:29 200 mls/hr Q12H SILVIA Administration Protocol Sodium Chloride 1,000 mls @ 50 mls/hr 01/31/21 08:30 Nacl 0.9% 1000 Ml IV DIRECT SILVIA Norepinephrine 4 mg in 250 mls @ 7.5 mls/hr 01/31/21 13:00 02/01/21 10:44 Levophed Drip 4 Mg/Ns 250 Ml IV 0 mcg/min TITR SILVIA 0 mls/hr Titration Protocol 2 MCG/MIN Propofol 1,000 mg in 100 mls @ 1.629 mls/hr 01/31/21 13:00 Diprivan 10 Mg/Ml IV TITR SILVIA Protocol 5 MCG/KG/MIN Metoclopramide HCl 10 mg 01/27/21 01:04 Metoclopramide 10 Mg/2 Ml Inj IV Q6H PRN Nausea And Vomiting Nortriptyline HCl 75 mg 01/27/21 22:00 01/30/21 22:01 Nortriptyline 25 Mg Cap PO 75 mg QHS SILVIA Administration Ondansetron HCl 4 mg 01/27/21 01:04 Ondansetron 4 Mg/2 Ml Inj IV Q8H PRN Nausea And Vomiting Pantoprazole Sodium 40 mg 01/31/21 15:00 02/01/21 10:44 Pantoprazole 40 Mg Inj IV 40 mg QDAY SILVIA Administration Sodium Chloride 10 ml 01/27/21 10:00 02/01/21 10:44 Sodium Chloride 0.9% 10 Ml Flush Syringe IV 10 ml BID SILVIA Administration Sodium Chloride 10 ml 01/27/21 01:04 01/31/21 20:31 Sodium Chloride 0.9% 10 Ml Flush Syringe IV 10 ml PRN PRN Administration LINE FLUSH Nutrition/Malnutrition Assess - Dietary Evaluation Nutrition/Malnutrition Findings: Nutrition Notes Start: 01/27/21 09:02 Freq: Status: Active Protocol: Document 01/27/21 09:02 JESSICA (Rec: 01/27/21 10:32 JESSICA [id number]) Nutrition Notes Need for Assessment generated from: Low BMI Initial or Follow up Assessment Current Diagnosis Hypertension,Malnutrition, Stroke Other Pertinent Diagnosis Postobstructive pneumonia, anemia, Minor stroke Current Diet Regular Diet (since B 01/27). Labs/Tests 01/27: Na 130, Cl 94.9, Cr 0.5 . Pertinent Medications 01/27: Nutritionally unremarkable. Height 6 ft Weight 54.43 kg [place] Body Weight (kg) 80.90 BMI 16.2 Weight Status Underweight Subjective/Other Information Diagnosis of Chronic moderate malnutrition and anemia. Percent of energy/protein needs met: Prescribed Regular Diet provides for energy/protein needs (2,289 Kcal/89 g) during LOS. Burn Absent Trauma Absent GI Symptoms None Food Allergy No Skin Integrity/Comment Clear, warm, dry. Current % PO Good (75-100%) #1 Nutrition Diagnosis Predicted suboptimal energy intake,Malnutrition, Underweight,Food and nutrition -related knowledge deficit Comments: Current diagnosis of Chronic moderate malnutrition and anemia. Etiology Unknown at the time. As Evidenced by Signs and Symptoms Low BMI, abnormal chemistry lab values, MD diagnoses. Is patient on ventilator? No Is Patient Ambulatory and/or Out of Bed Yes REE-([place]-St. Jeor-ambulatory/OOB) [ 1790.490 NUTR.MSJOOB] Kcal/Kg value to use for calculation 40 Approximate Energy Requirements Using 2177 kcal/Kg Calculation Used for Recommendations Kcal/kg Additional Notes Protein: 1.2-1.5 g/Kg/day; 97- 122 g/day; 388-488 Kcal/day ( from IBW). Fluids: 1.0 ml/Kcal/day, or as per MD. Nutrition Intervention Change Diet Order: Continue Regular Diet. Teaching Recipient Patient Learning Readiness Fair Teaching Methods Discussion,Handout Response to Teaching Reinforcement needed Education Handouts Provided AND: General, Healthful Mediterranean Nutrition Therapy. Barriers to Learning Motivation RD phone number provided Yes Patient aware of follow up options Yes Goal #1 Maintain body weight within +/ -3% of current BWt during LOS. Goal #2 Reach and maintain acceptable chemistry lab values during LOS. Goal #3 Provide Pt with educational tools to elicit behavioral changes towards a healthy lifestyle. Follow-Up By: 02/03/21 Additional Comments Continue monitoring acceptance of foods, %PO intake of meals , hydration, and BM. <BLAIRE MURILLO R - Last Filed: 02/02/21 09:23> Assessment and Plan Assessment and plan: I saw and evaluated the patient on 02/01/21. I agree with the findings and the plan of care as documented in the Nurse Practitioner's~note, Plan to transfer to [facility], follow clinically Hospitalist Physical - Constitutional Vitals: Temp Pulse Resp BP Pulse Ox 98.2 F 112 H 19 84/51 97 02/02/21 03:51 02/02/21 06:00 02/02/21 03:51 02/02/21 03:51 02/02/21 09:11 HEART Score - HEART Score Troponin: Troponin T < 0.010 ng/mL (0.00-0.029) 01/26/21 13:00 Results - Labs CBC & Chem 7: 02/02/21 05:18 02/02/21 05:18 Labs: Laboratory Last Values WBC 10.0 K/mm3 (4.5-11.0) 02/02/21 05:18 RBC 2.84 M/mm3 (3.65-5.03) L 02/02/21 05:18 Hgb 8.1 gm/dl (11.8-15.2) L 02/02/21 05:18 Hct 24.6 % (35.5-45.6) L 02/02/21 05:18 MCV 87 fl (84-94) 02/02/21 05:18 MCH 29 pg (28-32) 02/02/21 05:18 MCHC 33 % (32-34) 02/02/21 05:18 RDW 15.2 % (13.2-15.2) 02/02/21 05:18 Plt Count 346 K/mm3 (140-440) 02/02/21 05:18 Lymph % (Auto) 8.6 % (13.4-35.0) L 01/27/21 04:46 [place] % (Auto) 8.9 % (0.0-7.3) H 01/27/21 04:46 Eos % (Auto) 0.3 % (0.0-4.3) 01/27/21 04:46 Baso % (Auto) 0.4 % (0.0-1.8) 01/27/21 04:46 Lymph # (Auto) 1.3 K/mm3 (1.2-5.4) 01/27/21 04:46 [place] # (Auto) 1.4 K/mm3 (0.0-0.8) H 01/27/21 04:46 Eos # (Auto) 0.0 K/mm3 (0.0-0.4) 01/27/21 04:46 Baso # (Auto) 0.1 K/mm3 (0.0-0.1) 01/27/21 04:46 Seg Neutrophils % 81.8 % (40.0-70.0) H 01/27/21 04:46 Seg Neutrophils # 12.5 K/mm3 (1.8-7.7) H 01/27/21 04:46 ESR > 140.0 mm/Hr (0-20) 01/26/21 13:00 PT 15.6 Sec. (12.2-14.9) H 01/30/21 12:46 INR 1.12 (0.87-1.13) 01/30/21 12:46 APTT 41.7 Sec. (24.2-36.6) H 01/30/21 12:46 ABG pH 7.507 pH Units (7.350-7.450) H 01/31/21 14:02 ABG pH Cancelled 01/31/21 14:02 POC ABG pCO2 Cancelled 01/31/21 14:02 ABG pCO2 35.6 mm Hg 01/31/21 14:02 ABG pCO2 35.6 mm Hg 01/31/21 14:02 POC ABG pO2 Cancelled 01/31/21 14:02 ABG pO2 300.7 mm Hg (80.0-90.0) H 01/31/21 14:02 ABG pO2 300.7 mm Hg (80.0-90.0) H 01/31/21 14:02 POC ABG HCO3 Cancelled 01/31/21 14:02 ABG HCO3 27.6 mmol/L (20.0-26.0) H 01/31/21 14:02 ABG HCO3 27.6 mmol/L (20.0-26.0) H 01/31/21 14:02 ABG O2 Saturation 99.5 % (95.0-99.0) H 01/31/21 14:02 ABG O2 Saturation Cancelled 01/31/21 14:02 ABG O2 Content 13.4 (0.0-44) 01/31/21 14:02 ABG O2 Content Cancelled 01/31/21 14:02 POC ABG Base Excess Cancelled 01/31/21 14:02 ABG Base Excess 4.4 mmol/L (-2.0-3.0) H 01/31/21 14:02 ABG Base Excess 4.4 mmol/L (-2.0-3.0) H 01/31/21 14:02 ABG Hemoglobin 9.2 gm/dl (14.0-18.0) L 01/31/21 14:02 ABG Hemoglobin Cancelled 01/31/21 14:02 ABG Oxyhemoglobin Cancelled 01/31/21 14:02 ABG Carboxyhemoglobin 1.3 % (0.0-5.0) 01/31/21 14:02 ABG Carboxyhemoglobin 1.3 % (0.0-5.0) 01/31/21 14:02 ABG Methemoglobin 0.4 % (0.0-1.5) 01/31/21 14:02 ABG Methemoglobin Cancelled 01/31/21 14:02 ABG Sodium Cancelled 01/31/21 14:02 ABG Potassium Cancelled 01/31/21 14:02 ABG Chloride Cancelled 01/31/21 14:02 ABG Glucose Cancelled 01/31/21 14:02 ABG Lactate Cancelled 01/31/21 14:02 Oxyhemoglobin 97.8 % (95.0-99.0) 01/31/21 14:02 Oxyhemoglobin 97.8 % (95.0-99.0) 01/31/21 14:02 Carboxyhemoglobin Cancelled 01/31/21 14:02 FiO2 100 % 01/31/21 14:02 FiO2 100 % 01/31/21 14:02 FiO2 % Cancelled 01/31/21 14:02 Sodium 134 mmol/L (137-145) L 02/02/21 05:18 Potassium 4.7 mmol/L (3.6-5.0) 02/02/21 05:18 Chloride 98.1 mmol/L (98-107) 02/02/21 05:18 Carbon Dioxide 27 mmol/L (22-30) 02/02/21 05:18 Anion Gap 14 mmol/L 02/02/21 05:18 BUN 13 mg/dL (9-20) 02/02/21 05:18 Creatinine 0.4 mg/dL (0.8-1.3) L 02/02/21 05:18 Estimated GFR > 60 ml/min 02/02/21 05:18 BUN/Creatinine Ratio 33 % 02/02/21 05:18 Glucose 85 mg/dL (75-100) 02/02/21 05:18 Lactic Acid 1.60 mmol/L (0.7-2.0) 01/26/21 17:24 Calcium 10.8 mg/dL (8.4-10.2) H 02/02/21 05:18 Total Bilirubin 0.50 mg/dL (0.1-1.2) 02/01/21 04:27 Bilirubin Cancelled 01/31/21 14:02 AST 54 units/L (5-40) H 02/01/21 04:27 ALT 47 units/L (7-56) 02/01/21 04:27 Alkaline Phosphatase 163 units/L (35-129) H 02/01/21 04:27 Troponin T < 0.010 ng/mL (0.00-0.029) 01/26/21 13:00 Total Protein 6.3 g/dL (6.3-8.2) 02/01/21 04:27 Albumin 2.2 g/dL (3.9-5) L 02/01/21 04:27 Albumin/Globulin Ratio 0.5 % 02/01/21 04:27 Triglycerides 78 mg/dL (2-149) 01/26/21 13:32 Cholesterol 78 mg/dL (50-199) 01/26/21 13:32 LDL Cholesterol Direct 43 mg/dL (50-130) L 01/26/21 13:32 HDL Cholesterol 18 mg/dL (40-59) L 01/26/21 13:32 Cholesterol/HDL Ratio 4.33 % 01/26/21 13:32 Arterial Blood Glucose Cancelled 01/31/21 14:02 Arterial Blood Ionized Calcium Cancelled 01/31/21 14:02 Nasal Screen MRSA (PCR) Negative (Negative) 01/29/21 06:42 Vancomycin Trough 6.7 ug/mL (5.0-20.0) 01/28/21 16:26 TAMIA Screen Negative (Negative) 01/27/21 13:36 Microbiology: Microbiology 01/31/21 17:13 Tracheal Aspirate Sputum Culture - Preliminary Evans/IV: Voiding Method Condom Catheter Active Medications - Current Medications Current Medications: Generic Name Dose Route Start Last Admin Trade Name Freq PRN Reason Stop Dose Admin Acetaminophen 650 mg 01/27/21 01:04 Acetaminophen 325 Mg Tab PO Q4H PRN Pain MILD(1-3)/Fever >100.5/MCCAIN Fentanyl 50 mcg 01/31/21 13:16 01/31/21 20:28 Fentanyl 100 Mcg/2 Ml Inj IV 50 mcg Q2H PRN Administration Pain, Moderate (4-6) Cefepime HCl 2 gm in 100 mls @ 200 mls/hr 01/28/21 14:00 02/02/21 01:15 Cefepime/Ns 2 Gm/100 Ml IV 02/04/21 02:29 200 mls/hr Q12H SILVIA Administration Protocol Metoclopramide HCl 10 mg 01/27/21 01:04 Metoclopramide 10 Mg/2 Ml Inj IV Q6H PRN Nausea And Vomiting Nortriptyline HCl 75 mg 01/27/21 22:00 02/01/21 23:24 Nortriptyline 25 Mg Cap PO 75 mg QHS SILVIA Administration Ondansetron HCl 4 mg 01/27/21 01:04 Ondansetron 4 Mg/2 Ml Inj IV Q8H PRN Nausea And Vomiting Pantoprazole Sodium 40 mg 01/31/21 15:00 02/01/21 10:44 Pantoprazole 40 Mg Inj IV 40 mg QDAY SILVIA Administration Sodium Chloride 10 ml 01/27/21 10:00 02/01/21 23:24 Sodium Chloride 0.9% 10 Ml Flush Syringe IV 10 ml BID SILVIA Administration Sodium Chloride 10 ml 01/27/21 01:04 01/31/21 20:31 Sodium Chloride 0.9% 10 Ml Flush Syringe IV 10 ml PRN PRN Administration LINE FLUSH Nutrition/Malnutrition Assess - Dietary Evaluation Nutrition/Malnutrition Findings: Nutrition Notes Start: 01/27/21 09:02 Freq: Status: Active Protocol: Document 01/27/21 09:02 JESSICA (Rec: 01/27/21 10:32 JESSICA [id number]) Nutrition Notes Need for Assessment generated from: Low BMI Initial or Follow up Assessment Current Diagnosis Hypertension,Malnutrition, Stroke Other Pertinent Diagnosis Postobstructive pneumonia, anemia, Minor stroke Current Diet Regular Diet (since B 01/27). Labs/Tests 01/27: Na 130, Cl 94.9, Cr 0.5 . Pertinent Medications 01/27: Nutritionally unremarkable. Height 6 ft Weight 54.43 kg [place] Body Weight (kg) 80.90 BMI 16.2 Weight Status Underweight Subjective/Other Information Diagnosis of Chronic moderate malnutrition and anemia. Percent of energy/protein needs met: Prescribed Regular Diet provides for energy/protein needs (2,289 Kcal/89 g) during LOS. Burn Absent Trauma Absent GI Symptoms None Food Allergy No Skin Integrity/Comment Clear, warm, dry. Current % PO Good (75-100%) #1 Nutrition Diagnosis Predicted suboptimal energy intake,Malnutrition, Underweight,Food and nutrition -related knowledge deficit Comments: Current diagnosis of Chronic moderate malnutrition and anemia. Etiology Unknown at the time. As Evidenced by Signs and Symptoms Low BMI, abnormal chemistry lab values, MD diagnoses. Is patient on ventilator? No Is Patient Ambulatory and/or Out of Bed Yes REE-([place]-St. Jeor-ambulatory/OOB) [ 1790.490 NUTR.MSJOOB] Kcal/Kg value to use for calculation 40 Approximate Energy Requirements Using 2177 kcal/Kg Calculation Used for Recommendations Kcal/kg Additional Notes Protein: 1.2-1.5 g/Kg/day; 97- 122 g/day; 388-488 Kcal/day ( from IBW). Fluids: 1.0 ml/Kcal/day, or as per MD. Nutrition Intervention Change Diet Order: Continue Regular Diet. Teaching Recipient Patient Learning Readiness Fair Teaching Methods Discussion,Handout Response to Teaching Reinforcement needed Education Handouts Provided AND: General, Healthful Mediterranean Nutrition Therapy. Barriers to Learning Motivation RD phone number provided Yes Patient aware of follow up options Yes Goal #1 Maintain body weight within +/ -3% of current BWt during LOS. Goal #2 Reach and maintain acceptable chemistry lab values during LOS. Goal #3 Provide Pt with educational tools to elicit behavioral changes towards a healthy lifestyle. Follow-Up By: 02/03/21 Additional Comments Continue monitoring acceptance of foods, %PO intake of meals , hydration, and BM.
[2021-02-01] MEDS: NORTRIPTYLINE 25 MG CAP PO SCH ×2 (22:56→23:24)
[2021-02-02] MEDS: CEFEPIME/NS 2 GM/100 ML 2 GM/100 ML BAG IV SCH ×2 (01:15→16:37)
[2021-02-02 06:05] LABS: Hematocrit 24.6 % (35.5-45.6); Hemoglobin 8.1 gm/dl (11.8-15.2); Mean Corpuscular HGB Conc 33 % (32-34); Mean Corpuscular Volume 87 fl (84-94); Platelet Count 346 K/mm3 (140-440); Red Blood Count 2.84 M/mm3 (3.65-5.03); Red Cell Distribution Width 15.2 % (13.2-15.2)
[2021-02-02 06:19] LABS: Blood Urea Nitrogen 13 mg/dL (9-20); Calcium 10.8 mg/dL (8.4-10.2); Hemolysis Index 4
[2021-02-02 06:30] LABS: BUN/Creatinine Ratio 33
[2021-02-02] MEDS: PANTOPRAZOLE 40 MG INJ IV SCH (10:49)
--- NOTE | 2021-02-02 10:49 | Progress Note ---
Assessment and Plan 65 y/o smoker with emphysema and right lung mass, very proximal in the right mainstem with complete lung collapse 02/02/21: Given the degree of difficulty and likely significant underlying lung disease, this patient would need general anesthesia and ebus which we do not have at this hospital. Will refer him to [facility] pul in [place] or [place] to get biopsy for definitive diagnosis. Most likely will be able to discharge patient in the next 24-48 hours. He will follow up as an out patient. 02/01/21: Successfully extubated this am and doing well. Await path results. Ok to transition back to the 4th floor. 01/31/21: Coags stable enough. Plan to biopsy. Bronch today. See full note post bronch for details. 01/30/21: i ordered the coags I asked for yesterday. Will order NPO after midnight. Bronch set for 0930 am 01/31/21 01/29/21: NPO after midnight on Sunday for Bronch Sunday morning at 0930. Please check Coags tomorrow morning. 01/28/21: Bronch on Sunday. Wean FiO2 as tolerated. ABX. 1. Bronch with biopsy 2. Discussed with patient at bedside 3. Await neurology work up and to make sure no edema/swelling as the likelihood of herniation increases with bronch 4. Guarded to poor prognosis Subjective Date of service: 02/02/21 Interval history: per path report, brushing have atypical cells and with squamous but no definite malignancy and the other larger sample per path was benign lung tissue. Objective Vital Signs - 12hr 02/01/21 02/02/21 02/02/21 23:30 02:00 03:51 Temperature 97.3 F L 98.2 F Pulse Rate 99 H 141 H 108 H Respiratory 18 19 Rate Blood Pressure 101/61 84/51 O2 Sat by Pulse 99 91 Oximetry 02/02/21 02/02/21 02/02/21 06:00 07:43 09:11 Temperature 97.8 F Pulse Rate 112 H 114 H Respiratory 20 Rate Blood Pressure 108/58 O2 Sat by Pulse 90 97 Oximetry Constitutional: other (appears much older than stated age) Eyes: non-icteric ENT: oropharynx moist Neck: supple Effort: normal Ascultation: Right: diminished breath sounds, Left: clear Percussion: Right: dull Gastrointestinal: normoactive bowel sounds Integumentary: normal CBC and BMP: 02/02/21 05:18 02/02/21 05:18 ABG, PT/INR, D-dimer: ABG ABG pH 7.507 pH Units (7.350-7.450) H 01/31/21 14:02 ABG pH Cancelled 01/31/21 14:02 POC ABG pCO2 Cancelled 01/31/21 14:02 ABG pCO2 35.6 mm Hg 01/31/21 14:02 ABG pCO2 35.6 mm Hg 01/31/21 14:02 POC ABG pO2 Cancelled 01/31/21 14:02 ABG pO2 300.7 mm Hg (80.0-90.0) H 01/31/21 14:02 ABG pO2 300.7 mm Hg (80.0-90.0) H 01/31/21 14:02 POC ABG HCO3 Cancelled 01/31/21 14:02 ABG O2 Saturation 99.5 % (95.0-99.0) H 01/31/21 14:02 ABG O2 Saturation Cancelled 01/31/21 14:02 PT/INR, D-dimer PT 15.6 Sec. (12.2-14.9) H 01/30/21 12:46 INR 1.12 (0.87-1.13) 01/30/21 12:46 Abnormal lab findings: Abnormal Labs 01/26/21 01/26/21 01/26/21 13:00 13:00 13:00 WBC 16.7 H RBC 3.28 L Hgb 9.1 L Hct 28.1 L MCH MCHC Plt Count 626 H Lymph % (Auto) 6.2 L [place] % (Auto) 9.6 H Lymph # (Auto) 1.0 L [place] # (Auto) 1.6 H Seg Neutrophils % 83.5 H Seg Neutrophils # 13.9 H PT 16.7 H INR 1.22 H APTT 40.8 H ABG pH ABG pO2 ABG HCO3 ABG O2 Saturation ABG Base Excess ABG Hemoglobin Sodium 127 L Chloride 89.3 L Creatinine 0.7 L Glucose 121 H Calcium 10.3 H AST 47 H Alkaline Phosphatase 204 H Total Protein Albumin 2.4 L LDL Cholesterol Direct HDL Cholesterol 01/26/21 01/26/21 01/27/21 13:32 17:03 04:46 WBC 15.3 H RBC 3.43 L Hgb 9.4 L Hct 29.8 L MCH 27 L MCHC Plt Count 612 H Lymph % (Auto) 8.6 L [place] % (Auto) 8.9 H Lymph # (Auto) [place] # (Auto) 1.4 H Seg Neutrophils % 81.8 H Seg Neutrophils # 12.5 H PT INR APTT ABG pH ABG pO2 112.6 H ABG HCO3 ABG O2 Saturation ABG Base Excess ABG Hemoglobin 9.6 L Sodium Chloride Creatinine Glucose Calcium AST Alkaline Phosphatase Total Protein Albumin LDL Cholesterol Direct 43 L HDL Cholesterol 18 L 01/27/21 01/28/21 01/28/21 04:46 08:51 08:51 WBC 12.9 H RBC 2.89 L Hgb 8.5 L Hct 24.6 L MCH MCHC 35 H Plt Count 522 H Lymph % (Auto) [place] % (Auto) Lymph # (Auto) [place] # (Auto) Seg Neutrophils % Seg Neutrophils # PT INR APTT ABG pH ABG pO2 ABG HCO3 ABG O2 Saturation ABG Base Excess ABG Hemoglobin Sodium 130 L 131 L Chloride 94.9 L 97.4 L Creatinine 0.5 L 0.4 L Glucose 102 H Calcium AST Alkaline Phosphatase 170 H Total Protein 6.2 L Albumin 1.9 L LDL Cholesterol Direct HDL Cholesterol 01/29/21 01/29/21 01/30/21 07:35 07:35 12:46 WBC 11.1 H RBC 2.99 L Hgb 8.5 L Hct 26.5 L MCH MCHC Plt Count 521 H Lymph % (Auto) [place] % (Auto) Lymph # (Auto) [place] # (Auto) Seg Neutrophils % Seg Neutrophils # PT 15.6 H INR APTT 41.7 H ABG pH ABG pO2 ABG HCO3 ABG O2 Saturation ABG Base Excess ABG Hemoglobin Sodium 131 L Chloride Creatinine 0.4 L Glucose 108 H Calcium AST Alkaline Phosphatase Total Protein Albumin LDL Cholesterol Direct HDL Cholesterol 01/31/21 01/31/21 02/01/21 14:02 14:02 04:27 WBC 14.2 H RBC 3.06 L Hgb 8.4 L Hct 26.4 L MCH 27 L MCHC Plt Count 453 H Lymph % (Auto) [place] % (Auto) Lymph # (Auto) [place] # (Auto) Seg Neutrophils % Seg Neutrophils # PT INR APTT ABG pH 7.507 H ABG pO2 300.7 H 300.7 H ABG HCO3 27.6 H 27.6 H ABG O2 Saturation 99.5 H ABG Base Excess 4.4 H 4.4 H ABG Hemoglobin 9.2 L Sodium Chloride Creatinine Glucose Calcium AST Alkaline Phosphatase Total Protein Albumin LDL Cholesterol Direct HDL Cholesterol 02/01/21 02/02/21 02/02/21 04:27 05:18 05:18 WBC RBC 2.84 L Hgb 8.1 L Hct 24.6 L MCH MCHC Plt Count Lymph % (Auto) [place] % (Auto) Lymph # (Auto) [place] # (Auto) Seg Neutrophils % Seg Neutrophils # PT INR APTT ABG pH ABG pO2 ABG HCO3 ABG O2 Saturation ABG Base Excess ABG Hemoglobin Sodium 133 L 134 L Chloride 96.9 L Creatinine 0.5 L 0.4 L Glucose 104 H Calcium 10.6 H 10.8 H AST 54 H Alkaline Phosphatase 163 H Total Protein Albumin 2.2 L LDL Cholesterol Direct HDL Cholesterol
--- NOTE | 2021-02-02 15:03 | Progress Note ---
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 Neuro workup was unremarkable, however initial CXR in the ED was abnormal which warranted for further workup which reveals a right lung mass proximal to the right mainstem with complete lung collapse. Patient had a respiratory arrest and lost pulse during a bronch with biopsy by pulmonary, ACLS was intiated with ROSC, then patient was intubated and transferred to the ICU for further management Assessment and Plan #H/o CVA #Left-sided weakness - 01/26 CT Head showed no acute intracranial abnormality. Chronic infarct in the left subinsular region - 01/26 Brain MRI with microscopic angiopathy with old infarct involving left basal ganglia. There is no evidence of acute infarction - 01/27 CTA head with no significant abnormal - 01/27 rpt MRI brain with no acute intracranial abnormality. Volume loss and chronic white matter changes. Chronic focal infarct in the left basal ganglia region. - Neurology on consult, appreciate recommendations - Patient is intact, AAO, move all extremities - Sedation is off - Continue ASA and lipitor - Avoid benzodiazepine to reduce the possibility of delirium - Prn analgesia for CPOT greater than 3 - Maintenance of sleep-wake cycle, avoid delirium #Hypotension most like due to sedation #H/o Hypertension #s/p Respiratory arresst/ pulseless - ACLS with ROSC - Patient on low dose levophed this am - s/p levo gtt - Continue blood pressure monitor per protocol to maintain a MAP above 65 - Consider restarting PO antihypertensive once stable #Right Lung Mass #Postobstructive Pneumonia #S/p respiratory arrest - 01/26 Chest x-ray- Complete opacification of the right lung most consistent with atelectasis with suspected mass occluding the right mainstem bronchus recommend - 01/26 CTA chest- Central right lung mass with occlusion of the right mainstem bronchus and partial encasement of the right lower lobe pulmonary vessels. There is minimal filling of the right lower lobe pulmonary arterial and venous distribution. Extensive postobstructive pneumonia and pleural effusion also noted on the right. - Pulmonary on consult, appreciate recommendations - 01/31 s/p bronch with biopsy by [facility] - 01/01 ETT, extubated 02/01 - On 4L NC SPO2 96 to 100% - Continue SPO2 monitoring for SPO2 goal above 95% - Heme-onc evaluation if needed pending biopsy #GI: Severe protein calorie malnutrition - Currently NPO - Plan for bedside swallow if pass resume diet - Continue protonix and reglan #:Hyponatremia - Up trendingh 133 this am - IVF D/C - Continue to monitor electrolytes - Am labs ordered #Postobstructive Pneumonia #Leukocytosis - 01/26 B.cultX2 with no growth, 01/31 Tracheal aspirate pending - WBCs up from 11.1 to 14.2 - Patient is afebrile - Continue IV ABc cefepine - If leukocytosis persist and/or patient become febrile, consider ID consult #Endo: NAP - Avoid hypoglycemia Daily clinical course: 01/28/21 Patient with postobstructive pneumonia. Right lung mass. For bronchoscopy and biopsy by Pulmonology. 01/29/21 Patient with right lung mass, weight loss. For bronchoscopy and biopsy on Sunday. 01/30/21 Patient with right lung mass. He is for bronchoscopy and biopsy tomorrow. 01/31/21 patient with right lung mass, left sided weakness. He is for bronchoscopy and biopsy today. MRI Brain:no acute changes, but chronic infarct left basal ganglia. Neurology was seeing him. 02/01/21- Patient was extubated to NC, AAO, follwing commands. Remains on low dose Levophed, plan to titrate gtt. If BP remains stable without the gtt plan to to transfer to floor this afternoon. 02/02: patient transferred to [facility], wait for PT eval. cont supportive care Subjective Date of service: 02/02/21 Interval history: Patient seen and examined. Medical records and medication list reviewed. No acute event overnight noted by the RN. Patient denies any chest pain or difficulty breathing. Patient is tolerating diet. Discussed plan of care at bedside with patient. Objective - Exam Narrative Exam: GENERAL: Well-nourished elderly AAM lying on bed appeared to be in no dis comfort. HEENT: Normocephalic. Atraumatic. No conjunctival congestion or icterus. Patient has moist mucous membranes. NECK: Supple. Trachea midline. CHEST/LUNGS: course BS +ve, on supplemental O2 HEART/CARDIOVASCULAR: Regular in rate and rhythm. S1 and S2 positive. ABDOMEN: Abdomen is soft, nontender. Patient has normal bowel sounds. SKIN: There is no rash. Warm and dry. NEURO: No focal motor deficit. Follows command. MUSCULOSKELETAL: No joint effusion or tenderness. EXTRIMITY: No edema, no cyanosis or clubbing. PSYCH: Cooperative. - Constitutional Vitals: Vital Signs - 12hr 02/02/21 02/02/21 02/02/21 03:51 06:00 07:43 Temperature 98.2 F 97.8 F Pulse Rate 108 H 112 H 114 H Respiratory 19 20 Rate Blood Pressure 84/51 108/58 O2 Sat by Pulse 91 90 Oximetry 02/02/21 02/02/21 09:11 10:00 Temperature Pulse Rate 114 H Respiratory Rate Blood Pressure O2 Sat by Pulse 97 Oximetry - Labs CBC & Chem 7: 02/02/21 05:18 02/02/21 05:18 Labs: Abnormal lab results 02/02/21 02/02/21 Range/Units 05:18 05:18 RBC 2.84 L (3.65-5.03) M/mm3 Hgb 8.1 L (11.8-15.2) gm/dl Hct 24.6 L (35.5-45.6) % Sodium 134 L (137-145) mmol/L Creatinine 0.4 L (0.8-1.3) mg/dL Calcium 10.8 H (8.4-10.2) mg/dL HEART Score - HEART Score EKG: Normal Age: 45-65 Troponin: Troponin T < 0.010 ng/mL (0.00-0.029) 01/26/21 13:00 Troponin: 1-3x normal limit - Critical Actions Critical Actions: 0-3 pts:0.9-1.7%risk of adverse cardiac event.Candidate for discharge
[2021-02-02] MEDS: NORTRIPTYLINE 25 MG CAP PO SCH (21:51)
[2021-02-03] MEDS: CEFEPIME/NS 2 GM/100 ML 2 GM/100 ML BAG IV SCH ×2 (01:24→13:25)
[2021-02-03] MEDS: PANTOPRAZOLE 40 MG INJ IV SCH (09:12)
--- NOTE | 2021-02-03 09:27 | Progress Note ---
Assessment and Plan 65 y/o smoker with emphysema and right lung mass, very proximal in the right mainstem with complete lung collapse 02/03/21: Needs walk test to assess how much if any oxygen is needed. Suggest discharge on [place] 1 puff q12. [facility] [place] 02/02/21: Given the degree of difficulty and likely significant underlying lung disease, this patient would need general anesthesia and ebus which we do not have at this hospital. Will refer him to [facility] [place] to get biopsy for definitive diagnosis. Most likely will be able to discharge patient in the next 24-48 hours. He will follow up as an out patient. 02/01/21: Successfully extubated this am and doing well. Await path results. Ok to transition back to the 4th floor. 01/31/21: Coags stable enough. Plan to biopsy. Bronch today. See full note post bronch for details. 01/30/21: i ordered the coags I asked for yesterday. Will order NPO after midnight. Bronch set for 0930 am 01/31/21 01/29/21: NPO after midnight on Sunday for Bronch Sunday morning at 0930. Please check Coags tomorrow morning. 01/28/21: Bronch on Sunday. Wean FiO2 as tolerated. ABX. 1. Bronch with biopsy 2. Discussed with patient at bedside 3. Await neurology work up and to make sure no edema/swelling as the likelihood of herniation increases with bronch 4. Guarded to poor prognosis Subjective Date of service: 02/03/21 Interval history: Stable on 3 liters NC. Objective Vital Signs - 12hr 02/02/21 02/03/21 02/03/21 22:00 02:00 03:42 Temperature 98.4 F Pulse Rate 127 H 127 H 114 H Respiratory 26 H 16 Rate Blood Pressure 123/83 Blood Pressure [Right] O2 Sat by Pulse 97 99 Oximetry 02/03/21 02/03/21 02/03/21 06:56 08:59 09:00 Temperature 97.7 F Pulse Rate 114 H 116 H Respiratory 18 Rate Blood Pressure Blood Pressure 131/91 [Right] O2 Sat by Pulse 94 96 Oximetry Constitutional: other (appears much older than stated age) Eyes: non-icteric ENT: oropharynx moist Neck: supple Effort: normal Ascultation: Right: diminished breath sounds, Left: clear Percussion: Right: dull Gastrointestinal: normoactive bowel sounds Integumentary: normal CBC and BMP: 02/02/21 05:18 02/02/21 05:18 ABG, PT/INR, D-dimer: ABG ABG pH 7.507 pH Units (7.350-7.450) H 01/31/21 14:02 ABG pH Cancelled 01/31/21 14:02 POC ABG pCO2 Cancelled 01/31/21 14:02 ABG pCO2 35.6 mm Hg 01/31/21 14:02 ABG pCO2 35.6 mm Hg 01/31/21 14:02 POC ABG pO2 Cancelled 01/31/21 14:02 ABG pO2 300.7 mm Hg (80.0-90.0) H 01/31/21 14:02 ABG pO2 300.7 mm Hg (80.0-90.0) H 01/31/21 14:02 POC ABG HCO3 Cancelled 01/31/21 14:02 ABG O2 Saturation 99.5 % (95.0-99.0) H 01/31/21 14:02 ABG O2 Saturation Cancelled 01/31/21 14:02 PT/INR, D-dimer PT 15.6 Sec. (12.2-14.9) H 01/30/21 12:46 INR 1.12 (0.87-1.13) 01/30/21 12:46 Abnormal lab findings: Abnormal Labs 01/26/21 01/26/21 01/26/21 13:00 13:00 13:00 WBC 16.7 H RBC 3.28 L Hgb 9.1 L Hct 28.1 L MCH MCHC Plt Count 626 H Lymph % (Auto) 6.2 L [place] % (Auto) 9.6 H Lymph # (Auto) 1.0 L [place] # (Auto) 1.6 H Seg Neutrophils % 83.5 H Seg Neutrophils # 13.9 H PT 16.7 H INR 1.22 H APTT 40.8 H ABG pH ABG pO2 ABG HCO3 ABG O2 Saturation ABG Base Excess ABG Hemoglobin Sodium 127 L Chloride 89.3 L Creatinine 0.7 L Glucose 121 H Calcium 10.3 H AST 47 H Alkaline Phosphatase 204 H Total Protein Albumin 2.4 L LDL Cholesterol Direct HDL Cholesterol 01/26/21 01/26/21 01/27/21 13:32 17:03 04:46 WBC 15.3 H RBC 3.43 L Hgb 9.4 L Hct 29.8 L MCH 27 L MCHC Plt Count 612 H Lymph % (Auto) 8.6 L [place] % (Auto) 8.9 H Lymph # (Auto) [place] # (Auto) 1.4 H Seg Neutrophils % 81.8 H Seg Neutrophils # 12.5 H PT INR APTT ABG pH ABG pO2 112.6 H ABG HCO3 ABG O2 Saturation ABG Base Excess ABG Hemoglobin 9.6 L Sodium Chloride Creatinine Glucose Calcium AST Alkaline Phosphatase Total Protein Albumin LDL Cholesterol Direct 43 L HDL Cholesterol 18 L 01/27/21 01/28/21 01/28/21 04:46 08:51 08:51 WBC 12.9 H RBC 2.89 L Hgb 8.5 L Hct 24.6 L MCH MCHC 35 H Plt Count 522 H Lymph % (Auto) [place] % (Auto) Lymph # (Auto) [place] # (Auto) Seg Neutrophils % Seg Neutrophils # PT INR APTT ABG pH ABG pO2 ABG HCO3 ABG O2 Saturation ABG Base Excess ABG Hemoglobin Sodium 130 L 131 L Chloride 94.9 L 97.4 L Creatinine 0.5 L 0.4 L Glucose 102 H Calcium AST Alkaline Phosphatase 170 H Total Protein 6.2 L Albumin 1.9 L LDL Cholesterol Direct HDL Cholesterol 01/29/21 01/29/21 01/30/21 07:35 07:35 12:46 WBC 11.1 H RBC 2.99 L Hgb 8.5 L Hct 26.5 L MCH MCHC Plt Count 521 H Lymph % (Auto) [place] % (Auto) Lymph # (Auto) [place] # (Auto) Seg Neutrophils % Seg Neutrophils # PT 15.6 H INR APTT 41.7 H ABG pH ABG pO2 ABG HCO3 ABG O2 Saturation ABG Base Excess ABG Hemoglobin Sodium 131 L Chloride Creatinine 0.4 L Glucose 108 H Calcium AST Alkaline Phosphatase Total Protein Albumin LDL Cholesterol Direct HDL Cholesterol 01/31/21 01/31/21 02/01/21 14:02 14:02 04:27 WBC 14.2 H RBC 3.06 L Hgb 8.4 L Hct 26.4 L MCH 27 L MCHC Plt Count 453 H Lymph % (Auto) [place] % (Auto) Lymph # (Auto) [place] # (Auto) Seg Neutrophils % Seg Neutrophils # PT INR APTT ABG pH 7.507 H ABG pO2 300.7 H 300.7 H ABG HCO3 27.6 H 27.6 H ABG O2 Saturation 99.5 H ABG Base Excess 4.4 H 4.4 H ABG Hemoglobin 9.2 L Sodium Chloride Creatinine Glucose Calcium AST Alkaline Phosphatase Total Protein Albumin LDL Cholesterol Direct HDL Cholesterol 02/01/21 02/02/21 02/02/21 04:27 05:18 05:18 WBC RBC 2.84 L Hgb 8.1 L Hct 24.6 L MCH MCHC Plt Count Lymph % (Auto) [place] % (Auto) Lymph # (Auto) [place] # (Auto) Seg Neutrophils % Seg Neutrophils # PT INR APTT ABG pH ABG pO2 ABG HCO3 ABG O2 Saturation ABG Base Excess ABG Hemoglobin Sodium 133 L 134 L Chloride 96.9 L Creatinine 0.5 L 0.4 L Glucose 104 H Calcium 10.6 H 10.8 H AST 54 H Alkaline Phosphatase 163 H Total Protein Albumin 2.2 L LDL Cholesterol Direct HDL Cholesterol
--- NOTE | 2021-02-03 09:38 | Discharge Summary ---
Providers - Providers Date of Admission: 01/26/21 13:39 Date of discharge: 02/04/21 Attending physician: BLAIRE MURILLO 01/27/21 01:04 Consult to Physician [CONS] Routine Comment: Consulting Provider: WAYNE YOUNG Physician Instructions: Reason For Exam: Rt lung mass and post obstructive pneumonia 01/27/21 07:02 Consult to Physician [CONS] Routine Comment: Has Rt lung mass Consulting Provider: BUSTER DAIGLE Physician Instructions: Reason For Exam: R/o-cva--Unlikely,MRI-Brain --negativ 01/27/21 08:35 Speech Therapy Evaluation and Treat [CONS] Routine Reason For Exam: Swallow Screen 01/27/21 10:10 Physical Therapy Evaluation and Treat [CONS] Routine Comment: Reason For Exam: Left side weakness, eval for discharge 02/01/21 14:05 Speech Therapy Evaluation and Treat [CONS] Routine Reason For Exam: continue treatment for swallowing/ post extubation 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
[2021-02-03] MEDS: NORTRIPTYLINE 25 MG CAP PO SCH (21:41)
[2021-02-04] MEDS: CEFEPIME/NS 2 GM/100 ML 2 GM/100 ML BAG IV SCH (01:45)
[2021-02-04] MEDS: PANTOPRAZOLE 40 MG INJ IV SCH (10:04)
--- NOTE | 2021-02-04 13:46 | Progress Note ---
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 Neuro workup was unremarkable, however initial CXR in the ED was abnormal which warranted for further workup which reveals a right lung mass proximal to the right mainstem with complete lung collapse. Patient had a respiratory arrest and lost pulse during a bronch with biopsy by pulmonary, ACLS was intiated with ROSC, then patient was intubated and transferred to the ICU for further management Assessment and Plan #H/o CVA #Left-sided weakness - 01/26 CT Head showed no acute intracranial abnormality. Chronic infarct in the left subinsular region - 01/26 Brain MRI with microscopic angiopathy with old infarct involving left basal ganglia. There is no evidence of acute infarction - 01/27 CTA head with no significant abnormal - 01/27 rpt MRI brain with no acute intracranial abnormality. Volume loss and chronic white matter changes. Chronic focal infarct in the left basal ganglia region. - Neurology on consult, appreciate recommendations - Patient is intact, AAO, move all extremities - Sedation is off - Continue ASA and lipitor - Avoid benzodiazepine to reduce the possibility of delirium - Prn analgesia for CPOT greater than 3 - Maintenance of sleep-wake cycle, avoid delirium #Hypotension most like due to sedation #H/o Hypertension #s/p Respiratory arresst/ pulseless - ACLS with ROSC - Patient on low dose levophed this am - s/p levo gtt - Continue blood pressure monitor per protocol to maintain a MAP above 65 - Consider restarting PO antihypertensive once stable #Right Lung Mass #Postobstructive Pneumonia #S/p respiratory arrest - 01/26 Chest x-ray- Complete opacification of the right lung most consistent with atelectasis with suspected mass occluding the right mainstem bronchus recommend - 01/26 CTA chest- Central right lung mass with occlusion of the right mainstem bronchus and partial encasement of the right lower lobe pulmonary vessels. There is minimal filling of the right lower lobe pulmonary arterial and venous distribution. Extensive postobstructive pneumonia and pleural effusion also noted on the right. - Pulmonary on consult, appreciate recommendations - 01/31 s/p bronch with biopsy by [facility] - 01/01 ETT, extubated 02/01 - On 4L NC SPO2 96 to 100% - Continue SPO2 monitoring for SPO2 goal above 95% - Heme-onc evaluation if needed pending biopsy #GI: Severe protein calorie malnutrition - Currently NPO - Plan for bedside swallow if pass resume diet - Continue protonix and reglan #:Hyponatremia - Up trendingh 133 this am - IVF D/C - Continue to monitor electrolytes - Am labs ordered #Postobstructive Pneumonia #Leukocytosis - 01/26 B.cultX2 with no growth, 01/31 Tracheal aspirate pending - WBCs up from 11.1 to 14.2 - Patient is afebrile - Continue IV ABc cefepine - If leukocytosis persist and/or patient become febrile, consider ID consult #Endo: NAP - Avoid hypoglycemia Daily clinical course: 01/28/21 Patient with postobstructive pneumonia. Right lung mass. For bronchoscopy and biopsy by Pulmonology. 01/29/21 Patient with right lung mass, weight loss. For bronchoscopy and biopsy on Sunday. 01/30/21 Patient with right lung mass. He is for bronchoscopy and biopsy tomorrow. 01/31/21 patient with right lung mass, left sided weakness. He is for bronchoscopy and biopsy today. MRI Brain:no acute changes, but chronic infarct left basal ganglia. Neurology was seeing him. 02/01/21- Patient was extubated to NC, AAO, follwing commands. Remains on low dose Levophed, plan to titrate gtt. If BP remains stable without the gtt plan to to transfer to floor this afternoon. 02/02: patient transferred to [facility], wait for PT eval. cont supportive care 02/03/21: PT recommended ARNOLDO, CM consulted for placement. discussed plan of care with family at the bedtime Subjective Date of service: 02/03/21 Interval history: Patient seen and examined. Medical records and medication list reviewed. No acute event overnight noted by the RN. Patient denies any chest pain or difficulty breathing. Patient is tolerating diet. Discussed plan of care at bedside with patient. Objective - Exam Narrative Exam: GENERAL: Well-nourished elderly AAM lying on bed appeared to be in no discomfort. HEENT: Normocephalic. Atraumatic. No conjunctival congestion or icterus. Patient has moist mucous membranes. NECK: Supple. Trachea midline. CHEST/LUNGS: course BS +ve, on supplemental O2 HEART/CARDIOVASCULAR: Regular in rate and rhythm. S1 and S2 positive. ABDOMEN: Abdomen is soft, nontender. Patient has normal bowel sounds. SKIN: There is no rash. Warm and dry. NEURO: No focal motor deficit. Follows command. MUSCULOSKELETAL: No joint effusion or tenderness. EXTRIMITY: No edema, no cyanosis or clubbing. PSYCH: Cooperative. - Constitutional Vitals: Vital Signs - 12hr 02/04/21 02/04/21 02/04/21 03:34 04:00 08:04 Temperature 97.7 F 98.2 F Pulse Rate 116 H 113 H 111 H Respiratory 18 20 Rate Blood Pressure 126/83 113/76 O2 Sat by Pulse 100 100 Oximetry 02/04/21 11:39 Temperature 97.3 F L Pulse Rate 117 H Respiratory 20 Rate Blood Pressure 120/83 O2 Sat by Pulse 100 Oximetry - Labs CBC & Chem 7: 02/02/21 05:18 02/02/21 05:18 HEART Score - HEART Score EKG: Normal Age: 45-65 Troponin: Troponin T < 0.010 ng/mL (0.00-0.029) 01/26/21 13:00 Troponin: 1-3x normal limit - Critical Actions Critical Actions: 0-3 pts:0.9-1.7%risk of adverse cardiac event.Candidate for discharge
[2021-02-04] MEDS: NORTRIPTYLINE 25 MG CAP PO SCH (22:50)
[2021-02-05] MEDS ORDERED: SODIUM CHLORIDE 0.9% 250ML 250 ML IV ONE (04:20)
[2021-02-05] MEDS: PANTOPRAZOLE 40 MG INJ IV SCH (10:15)
--- NOTE | 2021-02-05 13:44 | Progress Note ---
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 Neuro workup was unremarkable, however initial CXR in the ED was abnormal which warranted for further workup which reveals a right lung mass proximal to the right mainstem with complete lung collapse. Patient had a respiratory arrest and lost pulse during a bronch with biopsy by pulmonary, ACLS was intiated with ROSC, then patient was intubated and transferred to the ICU for further management Assessment and Plan #H/o CVA #Left-sided weakness - 01/26 CT Head showed no acute intracranial abnormality. Chronic infarct in the left subinsular region - 01/26 Brain MRI with microscopic angiopathy with old infarct involving left basal ganglia. There is no evidence of acute infarction - 01/27 CTA head with no significant abnormal - 01/27 rpt MRI brain with no acute intracranial abnormality. Volume loss and chronic white matter changes. Chronic focal infarct in the left basal ganglia region. - Neurology on consult, appreciate recommendations - Patient is intact, AAO, move all extremities - Sedation is off - Continue ASA and lipitor - Avoid benzodiazepine to reduce the possibility of delirium - Prn analgesia for CPOT greater than 3 - Maintenance of sleep-wake cycle, avoid delirium #Hypotension most like due to sedation #H/o Hypertension #s/p Respiratory arresst/ pulseless - ACLS with ROSC - Patient on low dose levophed this am - s/p levo gtt - Continue blood pressure monitor per protocol to maintain a MAP above 65 - Consider restarting PO antihypertensive once stable #Right Lung Mass #Postobstructive Pneumonia #S/p respiratory arrest - 01/26 Chest x-ray- Complete opacification of the right lung most consistent with atelectasis with suspected mass occluding the right mainstem bronchus recommend - 01/26 CTA chest- Central right lung mass with occlusion of the right mainstem bronchus and partial encasement of the right lower lobe pulmonary vessels. There is minimal filling of the right lower lobe pulmonary arterial and venous distribution. Extensive postobstructive pneumonia and pleural effusion also noted on the right. - Pulmonary on consult, appreciate recommendations - 01/31 s/p bronch with biopsy by [facility] - 01/01 ETT, extubated 02/01 - On 4L NC SPO2 96 to 100% - Continue SPO2 monitoring for SPO2 goal above 95% - Heme-onc evaluation if needed pending biopsy #GI: Severe protein calorie malnutrition - Currently NPO - Plan for bedside swallow if pass resume diet - Continue protonix and reglan #:Hyponatremia - Up trendingh 133 this am - IVF D/C - Continue to monitor electrolytes - Am labs ordered #Postobstructive Pneumonia #Leukocytosis - 01/26 B.cultX2 with no growth, 01/31 Tracheal aspirate pending - WBCs up from 11.1 to 14.2 - Patient is afebrile - Continue IV ABc cefepine - If leukocytosis persist and/or patient become febrile, consider ID consult #Endo: NAP - Avoid hypoglycemia --Atrial Fib, new onset, started amioderone drip, metoprolol, 2d echo, cardiac consult Daily clinical course: 01/28/21 Patient with postobstructive pneumonia. Right lung mass. For bronchoscopy and biopsy by Pulmonology. 01/29/21 Patient with right lung mass, weight loss. For bronchoscopy and biopsy on Sunday. 01/30/21 Patient with right lung mass. He is for bronchoscopy and biopsy tomorrow. 01/31/21 patient with right lung mass, left sided weakness. He is for bronchoscopy and biopsy today. MRI Brain:no acute changes, but chronic infarct left basal ganglia. Neurology was seeing him. 02/01/21- Patient was extubated to NC, AAO, follwing commands. Remains on low dose Levophed, plan to titrate gtt. If BP remains stable without the gtt plan to to transfer to floor this afternoon. 02/02: patient [facility], wait for PT eval. cont supportive care 02/03/21: PT recommended ARNOLDO, CM consulted for placement. discussed plan of care with family at the bedtime 02/04/21: pending ARNOLDO, follow clinically, assess for home O2 requirement 02/05/21: pt converted to atrial fib, initiated on metoprolol 5mg iv q6h, start on amioderone drip. consult cardiology. LMWH was started for anticoagulation. Subjective Date of service: 02/05/21 Interval history: Patient seen and examined. Medical records and medication list reviewed. No acute event overnight noted by the RN. Patient denies any chest pain or difficulty breathing. Patient is tolerating diet. Discussed plan of care at bedside with patient. Objective - Exam Narrative Exam: GENERAL: Well-nourished elderly AAM lying on bed appeared to be in no discomfort. HEENT: Normocephalic. Atraumatic. No conjunctival congestion or icterus. Patient has moist mucous membranes. NECK: Supple. Trachea midline. CHEST/LUNGS: course BS +ve, on supplemental O2 HEART/CARDIOVASCULAR: Regular in rate and rhythm. S1 and S2 positive. ABDOMEN: Abdomen is soft, nontender. Patient has normal bowel sounds. SKIN: There is no rash. Warm and dry. NEURO: No focal motor deficit. Follows command. MUSCULOSKELETAL: No joint effusion or tenderness. EXTRIMITY: No edema, no cyanosis or clubbing. PSYCH: Cooperative. - Constitutional Vitals: Vital Signs - 12hr 02/05/21 02/05/21 02/05/21 04:03 04:05 05:31 Temperature 99.3 F 98.8 F Pulse Rate 121 H 93 H Respiratory 18 16 Rate Blood Pressure 107/77 108/84 113/84 Blood Pressure [Right] O2 Sat by Pulse 100 100 Oximetry 02/05/21 02/05/21 02/05/21 05:38 08:08 10:00 Temperature 98.8 F 98.3 F Pulse Rate 117 H 124 H Respiratory 16 18 Rate Blood Pressure 93/59 Blood Pressure 113/84 [Right] O2 Sat by Pulse 100 93 93 Oximetry 02/05/21 11:44 Temperature 98.1 F Pulse Rate 118 H Respiratory 16 Rate Blood Pressure 124/85 Blood Pressure [Right] O2 Sat by Pulse 94 Oximetry - Labs CBC & Chem 7: 02/02/21 05:18 02/02/21 05:18 HEART Score - HEART Score EKG: Normal Age: 45-65 Troponin: Troponin T < 0.010 ng/mL (0.00-0.029) 01/26/21 13:00 Troponin: 1-3x normal limit - Critical Actions Critical Actions: 0-3 pts:0.9-1.7%risk of adverse cardiac event.Candidate for discharge
[2021-02-05] MEDS ORDERED: METOPROLOL TARTRATE 5 MG/5 ML INJ IV ONE (18:00)
[2021-02-05] MEDS ORDERED: SODIUM CHLORIDE 0.9% 500 ML 500 ML IV ONE (18:00)
[2021-02-05] MEDS ORDERED: METOPROLOL TARTRATE 5 MG/5 ML INJ IV PRN (18:37)
[2021-02-05] MEDS: AMIODARONE 900 MG in DEXTROSE 5% IN WATER 482 ML IV SCH (19:57)
[2021-02-05] MEDS: ENOXAPARIN 100 MG/1 ML INJ SUB-Q SCH (21:09)
[2021-02-05] MEDS: NORTRIPTYLINE 25 MG CAP PO SCH (21:10)
[2021-02-06] MEDS: ENOXAPARIN 100 MG/1 ML INJ SUB-Q SCH ×2 (08:45→20:37)
[2021-02-06] MEDS: PANTOPRAZOLE 40 MG INJ IV SCH (10:31)
--- NOTE | 2021-02-06 12:53 | Consultation ---
History of Present Illness Consult date: 02/06/21 Consult reason: atrial fibrillation (atrial flutter) History of present illness: Mr. Marshall is a 65 years old male with history of CA with left-side residual weakness and HTN has been hospitalized for respiratory arrest s/p postobstructive pnemnia; extubated on 02/01/21. Cardiology is consult for atrial fibrillation/flutter with RVR. Patient's tele showd Atrial flutter at 9pm on 02/05 night with max heart rate 140s to 150s, which lasted about 5 minutes; Patient was started on Amiodarone gtt and he has been maintain in sinus rhythm. LMWH was started for anticoagulation. Patient denied any chest pain or heart racing or change in breathing. Poor historian. Past History Past Medical History: stroke Medications and Allergies Allergies Allergy/AdvReac Type Severity Reaction Status Date / Time No Known Allergies Allergy Verified 01/27/21 05:21 Home Medications Medication Instructions Recorded Confirmed Last Taken Type SUMAtriptan SUCCINATE [Imitrex] 50 mg PO DAILY PRN 02/12/13 01/27/21 Unknown History Amlodipine Besylate [Norvasc] 5 mg PO DAILY 01/27/21 01/27/21 Unknown History Gabapentin 400 mg PO BID 01/27/21 01/27/21 Unknown History Nortriptyline HCl [Pamelor] 75 mg PO QHS 01/27/21 01/27/21 Unknown History Sulindac 200 mg PO BID PRN 01/27/21 01/27/21 Unknown History cloNIDine [Catapres] 0.1 mg PO BID 01/27/21 01/27/21 Unknown History Active Meds: Active Medications Acetaminophen (Acetaminophen 325 Mg Tab) 650 mg PO Q4H PRN PRN Reason: Pain MILD(1-3)/Fever >100.5/MCCAIN Enoxaparin Sodium (Enoxaparin 100 Mg/1 Ml Inj) 60 mg 1 mg/kg (60 mg) SUB-Q Q12H SILVIA; Protocol Last Admin: 02/06/21 08:45 Dose: 60 mg Documented by: Amiodarone HCl 900 mg/ (Dextrose) 500 mls @ 33.333 mls/hr IV DIRECT SILVIA; Protocol Last Titration: 02/06/21 02:00 Dose: 0.5 mg/min, 16.667 mls/hr Documented by: Metoclopramide HCl (Metoclopramide 10 Mg/2 Ml Inj) 10 mg IV Q6H PRN PRN Reason: Nausea And Vomiting Metoprolol Tartrate (Metoprolol Tartrate 5 Mg/5 Ml Inj) 5 mg IV Q6HR PRN PRN Reason: Tachyarrhythmias Nortriptyline HCl (Nortriptyline 25 Mg Cap) 75 mg PO QHS [facility] Last Admin: 02/05/21 21:10 Dose: 75 mg Documented by: Ondansetron HCl (Ondansetron 4 Mg/2 Ml Inj) 4 mg IV Q8H PRN PRN Reason: Nausea And Vomiting Pantoprazole Sodium (Pantoprazole 40 Mg Inj) 40 mg IV QDAY [facility] Last Admin: 02/05/21 10:15 Dose: 40 mg Documented by: Sodium Chloride (Sodium Chloride 0.9% 10 Ml Flush Syringe) 10 ml IV BID [facility] Last Admin: 02/05/21 21:10 Dose: 10 ml Documented by: Sodium Chloride (Sodium Chloride 0.9% 10 Ml Flush Syringe) 10 ml IV PRN PRN PRN Reason: LINE FLUSH Last Admin: 01/31/21 20:31 Dose: 10 ml Documented by: Review of Systems ROS unobtainable: due to mental status Cardiovascular: chest pain (Denied), palpitations (denied), shortness of breath (denied) Physical Examination Vital Signs Temp Pulse Resp BP Pulse Ox 97.6 F 66 20 104/64 99 01/26/21 12:10 01/26/21 12:10 01/26/21 12:10 01/26/21 12:10 01/26/21 12:10 General appearance: no acute distress Neck: Positive: neck supple Cardiac: Positive: Reg Rate and Rhythm Lungs: Positive: clear to auscultation Neuro: Positive: Motor Function Intact Extremities: Absent: edema Results 02/02/21 05:18 02/02/21 05:18 Assessment and Plan # New onset atrial flutter/fibrillation - patient is in sinus rhythm - His tele showed atrial flutter with max HR 140-150s for 5 minutes on 02/05 night - on Amiodarone gtt now with controlled heart rate - start Metoprolol tartrate 25 mg q8hr (ordered for you); can discontinue Amioda kavin gtt tomorrw morning if there is no recurred AF/AFL; given his recent lung issues and slightly elevated liver enzymes on admission, will try to avoid long- term amiodarone if his heart rate well controlled. - check thyroid function and ECHO (ordered for you) - Patient had CVA history, his CHADS-VAS score >2, we agree to continue anticoagulation; We recommend to switch to OAC before discharge. Thanks for consult; We will continue to follow.
[2021-02-06] MEDS: METOPROLOL TARTRATE 25 MG TAB PO SCH ×2 (13:32→20:42)
--- NOTE | 2021-02-06 16:09 | Progress Note ---
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 Neuro workup was unremarkable, however initial CXR in the ED was abnormal which warranted for further workup which reveals a right lung mass proximal to the right mainstem with complete lung collapse. Patient had a respiratory arrest and lost pulse during a bronch with biopsy by pulmonary, ACLS was intiated with ROSC, then patient was intubated and transferred to the ICU for further management Assessment and Plan #H/o CVA #Left-sided weakness - 01/26 CT Head showed no acute intracranial abnormality. Chronic infarct in the left subinsular region - 01/26 Brain MRI with microscopic angiopathy with old infarct involving left basal ganglia. There is no evidence of acute infarction - 01/27 CTA head with no significant abnormal - 01/27 rpt MRI brain with no acute intracranial abnormality. Volume loss and chronic white matter changes. Chronic focal infarct in the left basal ganglia region. - Neurology on consult, appreciate recommendations - Patient is intact, AAO, move all extremities - Sedation is off - Continue ASA and lipitor - Avoid benzodiazepine to reduce the possibility of delirium - Prn analgesia for CPOT greater than 3 - Maintenance of sleep-wake cycle, avoid delirium #Hypotension most like due to sedation #H/o Hypertension #s/p Respiratory arresst/ pulseless - ACLS with ROSC - Patient on low dose levophed this am - s/p levo gtt - Continue blood pressure monitor per protocol to maintain a MAP above 65 - Consider restarting PO antihypertensive once stable #Right Lung Mass #Postobstructive Pneumonia #S/p respiratory arrest - 01/26 Chest x-ray- Complete opacification of the right lung most consistent with atelectasis with suspected mass occluding the right mainstem bronchus recommend - 01/26 CTA chest- Central right lung mass with occlusion of the right mainstem bronchus and partial encasement of the right lower lobe pulmonary vessels. There is minimal filling of the right lower lobe pulmonary arterial and venous distribution. Extensive postobstructive pneumonia and pleural effusion also noted on the right. - Pulmonary on consult, appreciate recommendations - 01/31 s/p bronch with biopsy by [facility] - 01/01 ETT, extubated 02/01 - On 4L NC SPO2 96 to 100% - Continue SPO2 monitoring for SPO2 goal above 95% - Heme-onc evaluation if needed pending biopsy #GI: Severe protein calorie malnutrition - Currently NPO - Plan for bedside swallow if pass resume diet - Continue protonix and reglan #:Hyponatremia - Up trendingh 133 this am - IVF D/C - Continue to monitor electrolytes - Am labs ordered #Postobstructive Pneumonia #Leukocytosis - 01/26 B.cultX2 with no growth, 01/31 Tracheal aspirate pending - WBCs up from 11.1 to 14.2 - Patient is afebrile - Continue IV ABc cefepine - If leukocytosis persist and/or patient become febrile, consider ID consult #Endo: NAP - Avoid hypoglycemia Daily clinical course: 01/28/21 Patient with postobstructive pneumonia. Right lung mass. For bronchoscopy and biopsy by Pulmonology. 01/29/21 Patient with right lung mass, weight loss. For bronchoscopy and biopsy on Sunday. 01/30/21 Patient with right lung mass. He is for bronchoscopy and biopsy tomorrow. 01/31/21 patient with right lung mass, left sided weakness. He is for bronchoscopy and biopsy today. MRI Brain:no acute changes, but chronic infarct left basal ganglia. Neurology was seeing him. 02/01/21- Patient was extubated to NC, AAO, follwing commands. Remains on low dose Levophed, plan to titrate gtt. If BP remains stable without the gtt plan to to transfer to floor this afternoon. 02/02: patient transferred to [facility], wait for PT eval. cont supportive care 02/03/21: PT recommended ARNOLDO, CM consulted for placement. discussed plan of care with family at the bedtime 02/04/21: pending ARNOLDO, follow clinically, assess for home O2 requirement Subjective Date of service: 02/04/21 Interval history: Patient seen and examined. Medical records and medication list reviewed. No acute event overnight noted by the RN. Patient denies any chest pain or difficulty breathing. Patient is tolerating diet. Discussed plan of care at bedside with patient. Objective - Exam Narrative Exam: GENERAL: Well-nourished elderly AAM lying on bed appeared to be in no discomfort. HEENT: Normocephalic. Atraumatic. No conjunctival congestion or icterus. Patient has moist mucous membranes. NECK: Supple. Trachea midline. CHEST/LUNGS: course BS +ve, on supplemental O2 HEART/CARDIOVASCULAR: Regular in rate and rhythm. S1 and S2 positive. ABDOMEN: Abdomen is soft, nontender. Patient has normal bowel sounds. SKIN: There is no rash. Warm and dry. NEURO: No focal motor deficit. Follows command. MUSCULOSKELETAL: No joint effusion or tenderness. EXTRIMITY: No edema, no cyanosis or clubbing. PSYCH: Cooperative. - Constitutional Vitals: Vital Signs - 12hr 02/06/21 02/06/21 02/06/21 08:03 09:10 11:14 Temperature 98.0 F 98.1 F Pulse Rate 96 H 99 H Respiratory 20 18 Rate Blood Pressure 143/90 131/82 O2 Sat by Pulse 100 99 100 Oximetry - Labs CBC & Chem 7: 02/02/21 05:18 02/02/21 05:18 Labs: Abnormal lab results 02/05/21 Range/Units 17:03 POC Glucose 119 H (70-105) mg/dL HEART Score - HEART Score EKG: Normal Age: 45-65 Troponin: Troponin T < 0.010 ng/mL (0.00-0.029) 01/26/21 13:00 Troponin: 1-3x normal limit - Critical Actions Critical Actions: 0-3 pts:0.9-1.7%risk of adverse cardiac event.Candidate for discharge
--- NOTE | 2021-02-06 16:21 | Progress Note ---
Assessment and Plan This is a [id number] male a current welder plasma arc with a history of CVA with left side residual and HTN who came is complaining of increased weakness on the left side. Neuro workup was unremarkable, however initial CXR in the ED was abnormal which warranted for further workup which reveals a right lung mass proximal to the right mainstem with complete lung collapse. Patient had a respiratory arrest and lost pulse during a bronch with biopsy by pulmonary, ACLS was intiated with ROSC, then patient was intubated and transferred to the ICU for further management Assessment and Plan #H/o CVA #Left-sided weakness - 01/26 CT Head showed no acute intracranial abnormality. Chronic infarct in the left subinsular region - 01/26 Brain MRI with microscopic angiopathy with old infarct involving left basal ganglia. There is no evidence of acute infarction - 01/27 CTA head with no significant abnormal - 01/27 rpt MRI brain with no acute intracranial abnormality. Volume loss and chronic white matter changes. Chronic focal infarct in the left basal ganglia region. - Neurology on consult, appreciate recommendations - Patient is intact, AAO, move all extremities - Sedation is off - Continue ASA and lipitor - Avoid benzodiazepine to reduce the possibility of delirium - Prn analgesia for CPOT greater than 3 - Maintenance of sleep-wake cycle, avoid delirium #Hypotension most like due to sedation #H/o Hypertension #s/p Respiratory arresst/ pulseless - ACLS with ROSC - Patient on low dose levophed this am - s/p levo gtt - Continue blood pressure monitor per protocol to maintain a MAP above 65 - Consider restarting PO antihypertensive once stable #Right Lung Mass #Postobstructive Pneumonia #S/p respiratory arrest - 01/26 Chest x-ray- Complete opacification of the right lung most consistent with atelectasis with suspected mass occluding the right mainstem bronchus recommend - 01/26 CTA chest- Central right lung mass with occlusion of the right mainstem bronchus and partial encasement of the right lower lobe pulmonary vessels. There is minimal filling of the right lower lobe pulmonary arterial and venous distribution. Extensive postobstructive pneumonia and pleural effusion also noted on the right. - Pulmonary on consult, appreciate recommendations - 01/31 s/p bronch with biopsy by [facility] - 01/01 ETT, extubated 02/01 - On 4L NC SPO2 96 to 100% - Continue SPO2 monitoring for SPO2 goal above 95% - Heme-onc evaluation if needed pending biopsy #GI: Severe protein calorie malnutrition - Currently NPO - Plan for bedside swallow if pass resume diet - Continue protonix and reglan #:Hyponatremia - Up trendingh 133 this am - IVF D/C - Continue to monitor electrolytes - Am labs ordered #Postobstructive Pneumonia #Leukocytosis - 01/26 B.cultX2 with no growth, 01/31 Tracheal aspirate pending - WBCs up from 11.1 to 14.2 - Patient is afebrile - Continue IV ABc cefepine - If leukocytosis persist and/or patient become febrile, consider ID consult #Endo: NAP - Avoid hypoglycemia --Atrial Fib, new onset, started amioderone drip, metoprolol, 2d echo, cardiac consult Daily clinical course: 01/28/21 Patient with postobstructive pneumonia. Right lung mass. For bronchoscopy and biopsy by Pulmonology. 01/29/21 Patient with right lung mass, weight loss. For bronchoscopy and biopsy on Sunday. 01/30/21 Patient with right lung mass. He is for bronchoscopy and biopsy tomorrow. 01/31/21 patient with right lung mass, left sided weakness. He is for bronchoscopy and biopsy today. MRI Brain:no acute changes, but chronic infarct left basal ganglia. Neurology was seeing him. 02/01/21- Patient was extubated to NC, AAO, follwing commands. Remains on low dose Levophed, plan to titrate gtt. If BP remains stable without the gtt plan to to transfer to floor this afternoon. 02/02: patient transferred to [facility], wait for PT eval. cont supportive care 02/03/21: PT recommended ARNOLDO, CM consulted for placement. discussed plan of care with family at the bedtime 02/04/21: pending ARNOLDO, follow clinically, assess for home O2 requirement 02/05/21: pt converted to atrial fib, initiated on metoprolol 5mg iv q6h, start on amioderone drip. consult cardiology. LMWH was started for anticoagulation. 02/06/21: - patient is in sinus rhythm, start Metoprolol tartrate 25 mg q8hr (ordered for you); will discontinue Amiodarone gtt tomorrw morning if there is no recurred AF/AFL; check thyroid function and ECHO Subjective Date of service: 02/06/21 Interval history: Patient seen and examined. Medical records and medication list reviewed. No acute event overnight noted by the RN. Patient denies any chest pain or difficulty breathing. Patient is tolerating diet. Discussed plan of care at bedside with patient. Objective - Exam Narrative Exam: GENERAL: Well-nourished elderly AAM lying on bed appeared to be in no discomfort. HEENT: Normocephalic. Atraumatic. No conjunctival congestion or icterus. Patient has moist mucous membranes. NECK: Supple. Trachea midline. CHEST/LUNGS: course BS +ve, on supplemental O2 HEART/CARDIOVASCULAR: Regular in rate and rhythm. S1 and S2 positive. ABDOMEN: Abdomen is soft, nontender. Patient has normal bowel sounds. SKIN: There is no rash. Warm and dry. NEURO: No focal motor deficit. Follows command. MUSCULOSKELETAL: No joint effusion or tenderness. EXTRIMITY: No edema, no cyanosis or clubbing. PSYCH: Cooperative. - Constitutional Vitals: Vital Signs - 12hr 02/06/21 02/06/21 02/06/21 08:03 09:10 11:14 Temperature 98.0 F 98.1 F Pulse Rate 96 H 99 H Respiratory 20 18 Rate Blood Pressure 143/90 131/82 O2 Sat by Pulse 100 99 100 Oximetry - Labs CBC & Chem 7: 02/02/21 05:18 02/02/21 05:18 Labs: Abnormal lab results 02/05/21 Range/Units 17:03 POC Glucose 119 H (70-105) mg/dL HEART Score - HEART Score EKG: Normal Age: 45-65 Troponin: Troponin T < 0.010 ng/mL (0.00-0.029) 01/26/21 13:00 Troponin: 1-3x normal limit - Critical Actions Critical Actions: 0-3 pts:0.9-1.7%risk of adverse cardiac event.Candidate for discharge
[2021-02-06] MEDS: AMIODARONE 900 MG in DEXTROSE 5% IN WATER 482 ML IV SCH (20:33)
[2021-02-06] MEDS: NORTRIPTYLINE 25 MG CAP PO SCH (21:35)
[2021-02-07] MEDS: METOPROLOL TARTRATE 25 MG TAB PO SCH ×2 (05:40→17:10)
[2021-02-07] MEDS: PANTOPRAZOLE 40 MG INJ IV SCH (10:08)
[2021-02-07] MEDS: ENOXAPARIN 100 MG/1 ML INJ SUB-Q SCH ×2 (10:08→21:30)
--- NOTE | 2021-02-07 16:16 | Progress Note ---
Assessment and Plan This is a [id number] male a current human resources temp with a history of CVA with left side residual and HTN who came is complaining of increased weakness on the left side. Neuro workup was unremarkable, however initial CXR in the ED was abnormal which warranted for further workup which reveals a right lung mass proximal to the right mainstem with complete lung collapse. Patient had a respiratory arrest and lost pulse during a bronch with biopsy by pulmonary, ACLS was intiated with ROSC, then patient was intubated and transferred to the ICU for further management Assessment and Plan #H/o CVA #Left-sided weakness - 01/26 CT Head showed no acute intracranial abnormality. Chronic infarct in the left subinsular region - 01/26 Brain MRI with microscopic angiopathy with old infarct involving left basal ganglia. There is no evidence of acute infarction - 01/27 CTA head with no significant abnormal - 01/27 rpt MRI brain with no acute intracranial abnormality. Volume loss and chronic white matter changes. Chronic focal infarct in the left basal ganglia region. - Neurology on consult, appreciate recommendations - Patient is intact, AAO, move all extremities - Sedation is off - Continue ASA and lipitor - Avoid benzodiazepine to reduce the possibility of delirium - Prn analgesia for CPOT greater than 3 - Maintenance of sleep-wake cycle, avoid delirium #Hypotension most like due to sedation #H/o Hypertension #s/p Respiratory arresst/ pulseless - ACLS with ROSC - Patient on low dose levophed this am - s/p levo gtt - Continue blood pressure monitor per protocol to maintain a MAP above 65 - Consider restarting PO antihypertensive once stable #Right Lung Mass #Postobstructive Pneumonia #S/p respiratory arrest - 01/26 Chest x-ray- Complete opacification of the right lung most consistent with atelectasis with suspected mass occluding the right mainstem bronchus recommend - 01/26 CTA chest- Central right lung mass with occlusion of the right mainstem bronchus and partial encasement of the right lower lobe pulmonary vessels. There is minimal filling of the right lower lobe pulmonary arterial and venous distribution. Extensive postobstructive pneumonia and pleural effusion also noted on the right. - Pulmonary on consult, appreciate recommendations - 01/31 s/p bronch with biopsy by [facility] - 01/01 ETT, extubated 02/01 - On 4L NC SPO2 96 to 100% - Continue SPO2 monitoring for SPO2 goal above 95% - Heme-onc evaluation if needed pending biopsy #GI: Severe protein calorie malnutrition - Currently NPO - Plan for bedside swallow if pass resume diet - Continue protonix and reglan #:Hyponatremia - Up trendingh 133 this am - IVF D/C - Continue to monitor electrolytes - Am labs ordered #Postobstructive Pneumonia #Leukocytosis - 01/26 B.cultX2 with no growth, 01/31 Tracheal aspirate pending - WBCs up from 11.1 to 14.2 - Patient is afebrile - Continue IV ABc cefepine - If leukocytosis persist and/or patient become febrile, consider ID consult #Endo: NAP - Avoid hypoglycemia --Atrial Fib, new onset, started amioderone drip, metoprolol, 2d echo, cardiac consult Daily clinical course: 01/28/21 Patient with postobstructive pneumonia. Right lung mass. For bronchoscopy and biopsy by Pulmonology. 01/29/21 Patient with right lung mass, weight loss. For bronchoscopy and biopsy on Sunday. 01/30/21 Patient with right lung mass. He is for bronchoscopy and biopsy tomorrow. 01/31/21 patient with right lung mass, left sided weakness. He is for bronchoscopy and biopsy today. MRI Brain:no acute changes, but chronic infarct left basal ganglia. Neurology was seeing him. 02/01/21- Patient was extubated to NC, AAO, follwing commands. Remains on low dose Levophed, plan to titrate gtt. If BP remains stable without the gtt plan to to transfer to floor this afternoon. 02/02: patient transferred to [facility], wait for PT eval. cont supportive care 02/03/21: PT recommended ARNOLDO, CM consulted for placement. discussed plan of care with family at the bedtime 02/04/21: pending ARNOLDO, follow clinically, assess for home O2 requirement 02/05/21: pt converted to atrial fib, initiated on metoprolol 5mg iv q6h, start on amioderone drip. consult cardiology. LMWH was started for anticoagulation. 02/06/21: - patient is in sinus rhythm, start Metoprolol tartrate 25 mg q8hr (ordered for you); will discontinue Amiodarone gtt tomorrw morning if there is no recurred AF/AFL; check thyroid function and ECHO 02/07/21: remains on amioderone drip, not a candidate for AC per cardiology. Pt also need outpt lung biopsy with [facility] - family aware. follow clinically. plan to transition to amioderone to po, if clinically stable and clears by cardiology plan to d/c tomorrow with ARNOLDO Subjective Date of service: 02/07/21 Interval history: Patient seen and examined. Medical records and medication list reviewed. No acute event overnight noted by the RN. Patient denies any chest pain or difficulty breathing. Patient is tolerating diet. Discussed plan of care at bedside with patient. Objective - Exam Narrative Exam: GENERAL: Well-nourished elderly AAM lying on bed appeared to be in no discomfort. HEENT: Normocephalic. Atraumatic. No conjunctival congestion or icterus. Patient has moist mucous membranes. NECK: Supple. Trachea midline. CHEST/LUNGS: course BS +ve, on supplemental O2 HEART/CARDIOVASCULAR: Regular in rate and rhythm. S1 and S2 positive. ABDOMEN: Abdomen is soft, nontender. Patient has normal bowel sounds. SKIN: There is no rash. Warm and dry. NEURO: No focal motor deficit. Follows command. MUSCULOSKELETAL: No joint effusion or tenderness. EXTRIMITY: No edema, no cyanosis or clubbing. PSYCH: Cooperative. - Constitutional Vitals: Vital Signs - 12hr 02/07/21 02/07/21 02/07/21 05:40 07:30 07:32 Temperature 97.6 F Pulse Rate 75 51 L Respiratory 20 Rate Blood Pressure 121/85 119/75 O2 Sat by Pulse 100 Oximetry 02/07/21 10:00 Temperature Pulse Rate Respiratory Rate Blood Pressure O2 Sat by Pulse 98 Oximetry - Labs CBC & Chem 7: 02/02/21 05:18 02/02/21 05:18 HEART Score - HEART Score EKG: Normal Age: 45-65 Troponin: Troponin T < 0.010 ng/mL (0.00-0.029) 01/26/21 13:00 Troponin: 1-3x normal limit - Critical Actions Critical Actions: 0-3 pts:0.9-1.7%risk of adverse cardiac event.Candidate for discharge
[2021-02-07] MEDS: AMIODARONE 200 MG TAB PO SCH (17:09)
--- NOTE | 2021-02-07 17:20 | Progress Note ---
Assessment and Plan - Patient Problems (1) Paroxysmal atrial fibrillation Current Visit: Yes Status: Acute Plan to address problem: Patient was admitted with symptoms due to total right out of the right lung due to atelectasis caused by an obstructing right lung mass. Course in the hospital notable for atrial fibrillation which has reverted to a stable sinus rhythm on medical therapy. Cardiac status is stable, continue current therapy with metoprolol and ami odarone. Patient is not a candidate for long-term oral anticoagulation in the setting of acute right lung cancer. We will follow intermittently. Subjective Date of service: 02/07/21 Interval history: Patient is comfortable on bedrest, no cardiac complaints. Atrial fibrillation has resolved on medical management, today in a stable sinus rhythm at 76. Objective Vital Signs Temp Pulse Resp BP Pulse Ox 02/07/21 17:10 90 02/07/21 10:00 97 02/07/21 07:32 51 L 20 119/75 100 02/07/21 07:30 97.6 F 02/07/21 05:40 75 121/85 02/07/21 03:47 98.2 F 75 16 121/85 97 02/07/21 01:21 96 02/06/21 23:25 98.1 F 82 18 130/84 93 02/06/21 22:27 96 02/06/21 20:42 101 H 139/93 02/06/21 19:32 98.9 F 101 H 18 139/93 100 - Physical Examination General: No Apparent Distress Neck: Positive: neck supple Cardiac: Positive: Reg Rate and Rhythm Lungs: Positive: Decreased Breath Sounds Neuro: Positive: Motor Function Intact Skin: Positive: Clear Extremities: Absent: edema
[2021-02-07] MEDS: NORTRIPTYLINE 25 MG CAP PO SCH (21:30)
[2021-02-08] MEDS: METOPROLOL TARTRATE 25 MG TAB PO SCH ×4 (01:30→19:10)
[2021-02-08] MEDS: ENOXAPARIN 60 MG/0.6 ML INJ SUB-Q SCH ×2 (06:03→20:00)
[2021-02-08] MEDS: PANTOPRAZOLE 40 MG INJ IV SCH (11:00)
[2021-02-08] MEDS: AMIODARONE 200 MG TAB PO SCH (11:00)
--- NOTE | 2021-02-08 12:50 | Progress Note ---
Assessment and Plan - Patient Problems (1) Paroxysmal atrial fibrillation Current Visit: Yes Status: Acute Plan to address problem: Paroxysmal atrial fibrillation pt has reverted to a stable sinus rhythm on amiodarone and metoprolol for suppression Recommendations: An echocardiogram has been ordered for LVEF assessment. Continue current medical therapy for paroxysmal atrial fibrillation. Patient is not a candidate for long-term oral anticoagulation in the setting of acute right lung cancer. Subjective Date of service: 02/08/21 Interval history: Currently, telemetry shows a stable sinus rhythm. Objective Vital Signs Temp Pulse Resp BP Pulse Ox 02/08/21 11:53 78 98 02/08/21 08:46 81 143/92 02/08/21 07:51 100 02/08/21 07:33 98.2 F 81 18 143/92 99 02/08/21 03:30 98.3 F 73 18 127/77 100 02/07/21 23:15 98.1 F 88 18 149/94 98 02/07/21 22:00 97 02/07/21 21:02 97 02/07/21 19:32 98.1 F 79 19 141/85 100 02/07/21 17:10 90 - Physical Examination General: No Apparent Distress HEENT: Positive: PERRL Neck: Positive: neck supple Cardiac: Positive: Reg Rate and Rhythm
--- NOTE | 2021-02-08 18:36 | Progress Note ---
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 Neuro workup was unremarkable, however initial CXR in the ED was abnormal which warranted for further workup which reveals a right lung mass proximal to the right mainstem with complete lung collapse. Patient had a respiratory arrest and lost pulse during a bronch with biopsy by pulmonary, ACLS was intiated with ROSC, then patient was intubated and transferred to the ICU for further management Assessment and Plan #H/o CVA #Left-sided weakness - 01/26 CT Head showed no acute intracranial abnormality. Chronic infarct in the left subinsular region - 01/26 Brain MRI with microscopic angiopathy with old infarct involving left basal ganglia. There is no evidence of acute infarction - 01/27 CTA head with no significant abnormal - 01/27 rpt MRI brain with no acute intracranial abnormality. Volume loss and chronic white matter changes. Chronic focal infarct in the left basal ganglia region. - Neurology on consult, appreciate recommendations - Patient is intact, AAO, move all extremities - Sedation is off - Continue ASA and lipitor - Avoid benzodiazepine to reduce the possibility of delirium - Prn analgesia for CPOT greater than 3 - Maintenance of sleep-wake cycle, avoid delirium #Hypotension most like due to sedation #H/o Hypertension #s/p Respiratory arresst/ pulseless - ACLS with ROSC - Patient on low dose levophed this am - s/p levo gtt - Continue blood pressure monitor per protocol to maintain a MAP above 65 - Consider restarting PO antihypertensive once stable #Right Lung Mass #Postobstructive Pneumonia #S/p respiratory arrest - 01/26 Chest x-ray- Complete opacification of the right lung most consistent with atelectasis with suspected mass occluding the right mainstem bronchus recommend - 01/26 CTA chest- Central right lung mass with occlusion of the right mainstem bronchus and partial encasement of the right lower lobe pulmonary vessels. There is minimal filling of the right lower lobe pulmonary arterial and venous distribution. Extensive postobstructive pneumonia and pleural effusion also noted on the right. - Pulmonary on consult, appreciate recommendations - 01/31 s/p bronch with biopsy by CCM - 01/01 ETT, extubated 02/01 - On 4L NC SPO2 96 to 100% - Continue SPO2 monitoring for SPO2 goal above 95% - Heme-onc evaluation if needed pending biopsy #GI: Severe protein calorie malnutrition - Currently NPO - Plan for bedside swallow if pass resume diet - Continue protonix and reglan #:Hyponatremia - Up trendingh 133 this am - IVF D/C - Continue to monitor electrolytes - Am labs ordered #Postobstructive Pneumonia #Leukocytosis - 01/26 B.cultX2 with no growth, 01/31 Tracheal aspirate pending - WBCs up from 11.1 to 14.2 - Patient is afebrile - Continue IV ABc cefepine - If leukocytosis persist and/or patient become febrile, consider ID consult #Endo: NAP - Avoid hypoglycemia --Atrial Fib, new onset, started amioderone drip, metoprolol, 2d echo, cardiac consultrd Echocardiogrammild LV enlargement, mild LVH, LVEF 40 to 45%. Not a candidate for anticoagulation, according to cardiology --Hyponatremia, likely related to lung mass Daily clinical course: 01/28/21 Patient with postobstructive pneumonia. Right lung mass. For bronchoscopy and biopsy by Pulmonology. 01/29/21 Patient with right lung mass, weight loss. For bronchoscopy and biopsy on Sunday. 01/30/21 Patient with right lung mass. He is for bronchoscopy and biopsy tomorrow. 01/31/21 patient with right lung mass, left sided weakness. He is for bronchoscopy and biopsy today. MRI Brain:no acute changes, but chronic infarct left basal ganglia. Neurology was seeing him. 02/01/21- Patient was extubated to NC, AAO, follwing commands. Remains on low dose Levophed, plan to titrate gtt. If BP remains stable without the gtt plan to to transfer to floor this afternoon. 02/02: patient transferred to tele, wait for PT eval. cont supportive care 02/03/21: PT recommended [facility], CM consulted for placement. discussed plan of care with family at the bedtime 02/04/21: pending [facility], follow clinically, assess for home O2 requirement 02/05/21: pt converted to atrial fib, initiated on metoprolol 5mg iv q6h, start on amioderone drip. consult cardiology. LMWH was started for anticoagulation. 02/06/21: - patient is in sinus rhythm, start Metoprolol tartrate 25 mg q8hr (ordered for you); will discontinue Amiodarone gtt tomorrw morning if there is no recurred AF/AFL; check thyroid function and ECHO 02/07/21: remains on amioderone drip, not a candidate for AC per cardiology. Pt also need outpt lung biopsy with [facility] - family aware. follow clinically. plan to transition to amioderone to po, if clinically stable and clears by cardiology plan to d/c tomorrow with [facility] 02/08/2021: Patient is reportedly tolerating pureed diet but chest sounds congested. Swallowing reevaluation ordered. Vital signs stable maintaining sinus rhythm on metoprolol and oral amiodarone. Not a candidate for anticoagulation according to cardiology. On room air with diminished breath sounds in the right thorax. Anticipating discharge to subacute rehab tomorrow. Discussed with the nursing staff and casework supervisor History Interval history: Patient is tolerating pureed diet according to nursing but has cough and chest congestion. Respiratory consulted. Admitted on change to p.o. Remains anemic. Vital signs otherwise stable. Sinus rhythm. Currently on room air. Hospitalist Physical - Constitutional Vitals: Temp Pulse Resp BP Pulse Ox 98.3 F 87 20 107/74 100 02/08/21 15:55 02/08/21 15:55 02/08/21 15:53 02/08/21 15:53 02/08/21 15:55 General appearance: Present: no acute distress, disheveled - EENT Eyes: Present: PERRL, EOM intact ENT: hearing intact - Neck Neck: Present: supple - Respiratory Respiratory effort: normal Respiratory: right: diminished - Cardiovascular Rhythm: regular - Extremities Extremities: No edema - Abdominal General gastrointestinal: soft, non-tender, non-distended - Integumentary Integumentary: Absent: rash - Psychiatric Psychiatric: appropriate mood/affect - Neurologic Neurologic: no focal deficits HEART Score - HEART Score EKG: Normal Age: 45-65 Troponin: Troponin T < 0.010 ng/mL (0.00-0.029) 01/26/21 13:00 Troponin: 1-3x normal limit - Critical Actions Critical Actions: 0-3 pts:0.9-1.7%risk of adverse cardiac event.Candidate for discharge Results - Labs CBC & Chem 7: 02/08/21 18:59 02/08/21 18:59 Labs: Laboratory Last Values WBC 10.0 K/mm3 (4.5-11.0) 02/02/21 05:18 RBC 2.84 M/mm3 (3.65-5.03) L 02/02/21 05:18 Hgb 8.1 gm/dl (11.8-15.2) L 02/02/21 05:18 Hct 24.6 % (35.5-45.6) L 02/02/21 05:18 MCV 87 fl (84-94) 02/02/21 05:18 MCH 29 pg (28-32) 02/02/21 05:18 MCHC 33 % (32-34) 02/02/21 05:18 RDW 15.2 % (13.2-15.2) 02/02/21 05:18 Plt Count 346 K/mm3 (140-440) 02/02/21 05:18 Lymph % (Auto) 8.6 % (13.4-35.0) L 01/27/21 04:46 [place] % (Auto) 8.9 % (0.0-7.3) H 01/27/21 04:46 Eos % (Auto) 0.3 % (0.0-4.3) 01/27/21 04:46 Baso % (Auto) 0.4 % (0.0-1.8) 01/27/21 04:46 Lymph # (Auto) 1.3 K/mm3 (1.2-5.4) 01/27/21 04:46 [place] # (Auto) 1.4 K/mm3 (0.0-0.8) H 01/27/21 04:46 Eos # (Auto) 0.0 K/mm3 (0.0-0.4) 01/27/21 04:46 Baso # (Auto) 0.1 K/mm3 (0.0-0.1) 01/27/21 04:46 Seg Neutrophils % 81.8 % (40.0-70.0) H 01/27/21 04:46 Seg Neutrophils # 12.5 K/mm3 (1.8-7.7) H 01/27/21 04:46 ESR > 140.0 mm/Hr (0-20) 01/26/21 13:00 PT 15.6 Sec. (12.2-14.9) H 01/30/21 12:46 INR 1.12 (0.87-1.13) 01/30/21 12:46 APTT 41.7 Sec. (24.2-36.6) H 01/30/21 12:46 ABG pH 7.507 pH Units (7.350-7.450) H 01/31/21 14:02 ABG pH Cancelled 01/31/21 14:02 POC ABG pCO2 Cancelled 01/31/21 14:02 ABG pCO2 35.6 mm Hg 01/31/21 14:02 ABG pCO2 35.6 mm Hg 01/31/21 14:02 POC ABG pO2 Cancelled 01/31/21 14:02 ABG pO2 300.7 mm Hg (80.0-90.0) H 01/31/21 14:02 ABG pO2 300.7 mm Hg (80.0-90.0) H 01/31/21 14:02 POC ABG HCO3 Cancelled 01/31/21 14:02 ABG HCO3 27.6 mmol/L (20.0-26.0) H 01/31/21 14:02 ABG HCO3 27.6 mmol/L (20.0-26.0) H 01/31/21 14:02 ABG O2 Saturation 99.5 % (95.0-99.0) H 01/31/21 14:02 ABG O2 Saturation Cancelled 01/31/21 14:02 ABG O2 Content 13.4 (0.0-44) 01/31/21 14:02 ABG O2 Content Cancelled 01/31/21 14:02 POC ABG Base Excess Cancelled 01/31/21 14:02 ABG Base Excess 4.4 mmol/L (-2.0-3.0) H 01/31/21 14:02 ABG Base Excess 4.4 mmol/L (-2.0-3.0) H 01/31/21 14:02 ABG Hemoglobin 9.2 gm/dl (14.0-18.0) L 01/31/21 14:02 ABG Hemoglobin Cancelled 01/31/21 14:02 ABG Oxyhemoglobin Cancelled 01/31/21 14:02 ABG Carboxyhemoglobin 1.3 % (0.0-5.0) 01/31/21 14:02 ABG Carboxyhemoglobin 1.3 % (0.0-5.0) 01/31/21 14:02 ABG Methemoglobin 0.4 % (0.0-1.5) 01/31/21 14:02 ABG Methemoglobin Cancelled 01/31/21 14:02 ABG Sodium Cancelled 01/31/21 14:02 ABG Potassium Cancelled 01/31/21 14:02 ABG Chloride Cancelled 01/31/21 14:02 ABG Glucose Cancelled 01/31/21 14:02 ABG Lactate Cancelled 01/31/21 14:02 Oxyhemoglobin 97.8 % (95.0-99.0) 01/31/21 14:02 Oxyhemoglobin 97.8 % (95.0-99.0) 01/31/21 14:02 Carboxyhemoglobin Cancelled 01/31/21 14:02 FiO2 100 % 01/31/21 14:02 FiO2 100 % 01/31/21 14:02 FiO2 % Cancelled 01/31/21 14:02 Sodium 134 mmol/L (137-145) L 02/02/21 05:18 Potassium 4.7 mmol/L (3.6-5.0) 02/02/21 05:18 Chloride 98.1 mmol/L (98-107) 02/02/21 05:18 Carbon Dioxide 27 mmol/L (22-30) 02/02/21 05:18 Anion Gap 14 mmol/L 02/02/21 05:18 BUN 13 mg/dL (9-20) 02/02/21 05:18 Creatinine 0.4 mg/dL (0.8-1.3) L 02/02/21 05:18 Estimated GFR > 60 ml/min 02/02/21 05:18 BUN/Creatinine Ratio 33 % 02/02/21 05:18 Glucose 85 mg/dL (75-100) 02/02/21 05:18 POC Glucose 119 mg/dL (70-105) H 02/05/21 17:03 Lactic Acid 1.60 mmol/L (0.7-2.0) 01/26/21 17:24 Calcium 10.8 mg/dL (8.4-10.2) H 02/02/21 05:18 Total Bilirubin 0.50 mg/dL (0.1-1.2) 02/01/21 04:27 Bilirubin Cancelled 01/31/21 14:02 AST 54 units/L (5-40) H 02/01/21 04:27 ALT 47 units/L (7-56) 02/01/21 04:27 Alkaline Phosphatase 163 units/L (35-129) H 02/01/21 04:27 Troponin T < 0.010 ng/mL (0.00-0.029) 01/26/21 13:00 Total Protein 6.3 g/dL (6.3-8.2) 02/01/21 04:27 Albumin 2.2 g/dL (3.9-5) L 02/01/21 04:27 Albumin/Globulin Ratio 0.5 % 02/01/21 04:27 Triglycerides 78 mg/dL (2-149) 01/26/21 13:32 Cholesterol 78 mg/dL (50-199) 01/26/21 13:32 LDL Cholesterol Direct 43 mg/dL (50-130) L 01/26/21 13:32 HDL Cholesterol 18 mg/dL (40-59) L 01/26/21 13:32 Cholesterol/HDL Ratio 4.33 % 01/26/21 13:32 TSH 3.800 mlU/mL (0.270-4.200) 02/06/21 23:47 Arterial Blood Glucose Cancelled 01/31/21 14:02 Arterial Blood Ionized Calcium Cancelled 01/31/21 14:02 Nasal Screen MRSA (PCR) Negative (Negative) 01/29/21 06:42 Vancomycin Trough 6.7 ug/mL (5.0-20.0) 01/28/21 16:26 TAMIA Screen Negative (Negative) 01/27/21 13:36 Coronavirus (PCR) Negative (Negative) 02/08/21 08:37 Evans/IV: Voiding Method Condom Catheter Active Medications - Current Medications Current Medications: Generic Name Dose Route Start Last Admin Trade Name Freq PRN Reason Stop Dose Admin Acetaminophen 650 mg 01/27/21 01:04 Acetaminophen 325 Mg Tab PO Q4H PRN Pain MILD(1-3)/Fever >100.5/MCCAIN Amiodarone HCl 200 mg 02/07/21 13:00 02/08/21 11:00 Amiodarone 200 Mg Tab PO 200 mg DAILY SILVIA Administration Enoxaparin Sodium 60 mg 02/08/21 06:00 02/08/21 06:03 Enoxaparin 60 Mg/0.6 Ml Inj SUB-Q 60 mg Q12H SILVIA Administration Protocol Metoclopramide HCl 10 mg 01/27/21 01:04 Metoclopramide 10 Mg/2 Ml Inj IV Q6H PRN Nausea And Vomiting Metoprolol Tartrate 5 mg 02/05/21 18:37 Metoprolol Tartrate 5 Mg/5 Ml Inj IV Q6HR PRN Tachyarrhythmias Metoprolol Tartrate 25 mg 02/08/21 08:00 02/08/21 08:46 Metoprolol Tartrate 25 Mg Tab PO 25 mg Q8H SILVIA Administration Nortriptyline HCl 75 mg 01/27/21 22:00 02/07/21 21:30 Nortriptyline 25 Mg Cap PO 75 mg QHS SILVIA Administration Ondansetron HCl 4 mg 01/27/21 01:04 Ondansetron 4 Mg/2 Ml Inj IV Q8H PRN Nausea And Vomiting Pantoprazole Sodium 40 mg 01/31/21 15:00 02/08/21 11:00 Pantoprazole 40 Mg Inj IV 40 mg QDAY SILVIA Administration Sodium Chloride 10 ml 01/27/21 10:00 02/08/21 11:09 Sodium Chloride 0.9% 10 Ml Flush Syringe IV 10 ml BID SILVIA Administration Sodium Chloride 10 ml 01/27/21 01:04 01/31/21 20:31 Sodium Chloride 0.9% 10 Ml Flush Syringe IV 10 ml PRN PRN Administration LINE FLUSH Nutrition/Malnutrition Assess - Dietary Evaluation Nutrition/Malnutrition Findings: Nutrition Notes Start: 01/27/21 09:02 Freq: Status: Active Protocol: Document 02/03/21 15:17 GB (Rec: 02/03/21 15:35 GB [email or web address]) Nutrition Notes Initial or Follow up Reassessment Current Diagnosis Hypertension,Malnutrition, Stroke Other Pertinent Diagnosis Postobstructive pneumonia, anemia, Minor stroke Current Diet pureed Labs/Tests 02/02: Na 134, Creatinine 0.4, Ca 10.8 Pertinent Medications reviewed Height 6 ft Weight 56.5 kg [place] Body Weight (kg) 80.90 BMI 16.9 Weight change and time frame 01/26: 54.431kg 02/03: 56.5kg change of +2.069kg for +3.8% gain. Weight Status Underweight Subjective/Other Information Waiting for placement facility acceptance. Bowel: incontinent, normal sounds PO intake of meals 50-100%. RD to add nutritional supplement once daily for added calories/protein. Percent of energy/protein needs met: Current PO intake meets 75% of minimal EEN. Burn Absent Trauma Absent GI Symptoms None Food Allergy No Skin Integrity/Comment No complications reported Current % PO Good (75-100%) Minimum of two criteria No #2 Nutrition Diagnosis Malnutrition,Underweight Etiology Consult for malnutrition assessment, BMI <19.5 As Evidenced by Signs and Symptoms Malnutrition consult, BMI 16.9 Diagnosis Progress(for reassessment Continues documentation) #1 Nutrition Diagnosis Inadequate energy intake Comments: 02/03 PO intake improved 50-100% of meals in past week Etiology stroke As Evidenced by Signs and Symptoms Poor po intake Diagnosis Progress(for reassessment Improved documentation) Is patient on ventilator? No Is Patient Ambulatory and/or Out of Bed Yes REE-([facility]-ambulatory/OOB) [ 1817.400 [id number]] Kcal/Kg value to use for calculation 40 Approximate Energy Requirements Using 2260 kcal/Kg Calculation Used for Recommendations Kcal/kg Additional Notes Protein: 1.2-1.5 g/Kg @ 57k-86g Fluids: 1.0 ml/Kcal, or per MD . Nutrition Intervention Change Diet Order: Pureed - continue Nutrition Support: n/a Add Supplement/Snack (indicate name/kcal Ensure Enlive daily /protein ) Provides kCal: 350 Provides Protein (gm) 20 Goal #1 PO intake of meals to improve to 75% or greater daily for LOS Goal #2 PO intake of nutritional supplement to be 75% or greater daily for LOS Follow-Up By: 02/09/21 Additional Comments f/u: po intake of meals/ supplement, weight
--- NOTE | 2021-02-08 18:41 | Electrocardiograph Report ---
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
--- NOTE | 2021-02-08 18:51 | Electrocardiograph Report ---
[facility] Test Date: 2021-02-05 Test Time: 17:20:49 Pat Name: SAVANNA PAREKH Department: Room: A486 1 Gender: M Sanitation Worker Hosing Machinery: DEBBIE : 1955 Requested By: BLAIRE MURILLO Order Number: [id number] Reading MD: Yola Ng Measurements Intervals [place] Rate: 136 P: [place]: QRS: 47 QRSD: 88 T: 194 QT: 315 QTc: 475 Interpretive Statements Rapid atrial fibrillation Nonspecific repol abnormality, diffuse leads Compared to ECG 02/05/2021 01:04:41 Atrial fibrillation has replaced sinus tachycardia Electronically Signed On 02-08-2021 18:51:38 EDT by Yola Ng
[2021-02-08 19:28] LABS: Basophils # (Auto) 0.1 K/mm3 (0.0-0.1); Basophils % (Auto) 0.6 % (0.0-1.8); Eosinophils % (Auto) 0.3 % (0.0-4.3); Hematocrit 33.1 % (35.5-45.6); Hemoglobin 10.6 gm/dl (11.8-15.2); Lymphocytes # (Auto) 1.1 K/mm3 (1.2-5.4); Lymphocytes % (Auto) 10.8 % (13.4-35.0); Mean Corpuscular HGB Conc 32 % (32-34); Mean Corpuscular Volume 89 fl (84-94); Monocytes # (Auto) 0.9 K/mm3 (0.0-0.8); Monocytes % (Auto) 8.6 % (0.0-7.3); Platelet Count 404 K/mm3 (140-440); Red Blood Count 3.72 M/mm3 (3.65-5.03); Red Cell Distribution Width 15.9 % (13.2-15.2)
[2021-02-08 19:50] LABS: Alanine Aminotransferase 49 units/L (7-56); Albumin 2.3 g/dL (3.9-5); Blood Urea Nitrogen 18 mg/dL (9-20); Calcium 11.7 mg/dL (8.4-10.2); Hemolysis Index 9
[2021-02-08 19:52] LABS: BUN/Creatinine Ratio 36
[2021-02-08] MEDS: NORTRIPTYLINE 25 MG CAP PO SCH (21:16)
[2021-02-09] MEDS: METOPROLOL TARTRATE 25 MG TAB PO SCH ×3 (00:05→15:33)
[2021-02-09] MEDS: ENOXAPARIN 60 MG/0.6 ML INJ SUB-Q SCH (05:01)
[2021-02-09] MEDS: AMIODARONE 200 MG TAB PO SCH (10:17)
[2021-02-09] MEDS: PANTOPRAZOLE 40 MG INJ IV SCH (10:17)
--- NOTE | 2021-02-09 10:29 | Progress Note ---
Assessment and Plan - Patient Problems (1) Paroxysmal atrial fibrillation Current Visit: Yes Status: Acute Plan to address problem: Paroxysmal atrial fibrillation pt has reverted to a stable sinus rhythm. on amiodarone and metoprolol for suppression. Echocardiogram shows left ventricular ejection fraction 40-45%. Recommendations: Continue current medical therapy for paroxysmal atrial fibrillation. Patient is not a candidate for long-term oral anticoagulation in the setting of acute right lung cancer. Otherwise, conservative cardiac management. Subjective Date of service: 02/09/21 Interval history: Currently, telemetry shows a stable sinus rhythm. Objective Vital Signs Temp Pulse Resp BP Pulse Ox 02/09/21 08:04 98.0 F 85 18 133/85 95 02/09/21 03:37 98.2 F 51 L 16 103/64 96 02/09/21 00:00 87 02/08/21 23:18 98.0 F 87 12 124/85 98 02/08/21 22:39 96 02/08/21 20:36 97 02/08/21 19:56 98.1 F 103 H 16 102/74 97 02/08/21 19:44 97.8 F 105 H 16 116/81 97 02/08/21 19:10 119 H 02/08/21 15:55 98.3 F 87 100 02/08/21 15:53 20 107/74 02/08/21 11:53 78 98 - Physical Examination General: No Apparent Distress HEENT: Positive: PERRL Neck: Positive: neck supple Cardiac: Positive: Reg Rate and Rhythm Lungs: Positive: Decreased Breath Sounds - Labs and Meds Cardiac Enzymes 02/08/21 Range/Units 18:59 AST 51 H (5-40) units/L CBC 02/08/21 Range/Units 18:59 WBC 10.2 (4.5-11.0) K/mm3 RBC 3.72 (3.65-5.03) M/mm3 Hgb 10.6 L (11.8-15.2) gm/dl Hct 33.1 L (35.5-45.6) % Plt Count 404 (140-440) K/mm3 Lymph # (Auto) 1.1 L (1.2-5.4) K/mm3 [place] # (Auto) 0.9 H (0.0-0.8) K/mm3 Eos # (Auto) 0.0 (0.0-0.4) K/mm3 Baso # (Auto) 0.1 (0.0-0.1) K/mm3 Comprehensive Metabolic Panel 02/08/21 Range/Units 18:59 Sodium 131 L (137-145) mmol/L Potassium 4.5 (3.6-5.0) mmol/L Chloride 93.8 L (98-107) mmol/L Carbon Dioxide 28 (22-30) mmol/L BUN 18 (9-20) mg/dL Creatinine 0.5 L (0.8-1.3) mg/dL Glucose 126 H (75-100) mg/dL Calcium 11.7 H (8.4-10.2) mg/dL AST 51 H (5-40) units/L ALT 49 (7-56) units/L Alkaline Phosphatase 179 H (35-129) units/L Total Protein 6.8 (6.3-8.2) g/dL Albumin 2.3 L (3.9-5) g/dL
--- NOTE | 2021-02-09 12:41 | Discharge Summary ---
Providers - Providers Date of Admission: 01/26/21 13:39 Attending physician: RANULFO GOINS MD 01/27/21 07:02 Consult to Physician [CONS] Routine Comment: Has Rt lung mass Consulting Provider: BUSTER DAIGLE Physician Instructions: Reason For Exam: R/o-cva--Unlikely,MRI-Brain --negativ 01/27/21 08:35 Speech Therapy Evaluation and Treat [CONS] Routine Reason For Exam: Swallow Screen 01/27/21 10:10 Physical Therapy Evaluation and Treat [CONS] Routine Comment: Reason For Exam: Left side weakness, eval for discharge 02/01/21 14:05 Speech Therapy Evaluation and Treat [CONS] Routine Reason For Exam: continue treatment for swallowing/ post extubation 02/05/21 18:39 Consult to Physician [CONS] Routine Comment: Consulting Provider: ASHLEY GABRIEL Physician Instructions: Reason For Exam: atrial fib 02/08/21 16:58 Speech Therapy Evaluation and Treat [CONS] Routine Reason For Exam: re-assess for possible asp. 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 Neuro workup was unremarkable, however initial CXR in the ED was abnormal which warranted for further workup which reveals a right lung mass proximal to the right mainstem with complete lung collapse. Patient had a respiratory arrest and lost pulse during a bronch with biopsy by pulmonary, ACLS was intiated with ROSC, then patient was intubated and transferred to the ICU for further management Assessment and Plan #H/o CVA #Left-sided weakness - 01/26 CT Head showed no acute intracranial abnormality. Chronic infarct in the left subinsular region - 01/26 Brain MRI with microscopic angiopathy with old infarct involving left basal ganglia. There is no evidence of acute infarction - 01/27 CTA head with no significant abnormal - 01/27 rpt MRI brain with no acute intracranial abnormality. Volume loss and chronic white matter changes. Chronic focal infarct in the left basal ganglia region. - Neurology on consult, appreciate recommendations - Patient is intact, AAO, move all extremities - Sedation is off - Continue ASA and lipitor - Avoid benzodiazepine to reduce the possibility of delirium - Prn analgesia for CPOT greater than 3 - Maintenance of sleep-wake cycle, avoid delirium #Hypotension most like due to sedation #H/o Hypertension #s/p Respiratory arresst/ pulseless - ACLS with ROSC - Patient on low dose levophed this am - s/p levo gtt - Continue blood pressure monitor per protocol to maintain a MAP above 65 - Consider restarting PO antihypertensive once stable #Right Lung Mass #Postobstructive Pneumonia #S/p respiratory arrest - 01/26 Chest x-ray- Complete opacification of the right lung most consistent with atelectasis with suspected mass occluding the right mainstem bronchus recommend - 01/26 CTA chest- Central right lung mass with occlusion of the right mainstem bronchus and partial encasement of the right lower lobe pulmonary vessels. There is minimal filling of the right lower lobe pulmonary arterial and venous distribution. Extensive postobstructive pneumonia and pleural effusion also noted on the right. - Pulmonary on consult, appreciate recommendations - 01/31 s/p bronch with biopsy by CCM - 01/01 ETT, extubated 02/01 - On 4L NC SPO2 96 to 100% - Continue SPO2 monitoring for SPO2 goal above 95% - Heme-onc evaluation if needed pending biopsy #GI: Severe protein calorie malnutrition - Currently NPO - Plan for bedside swallow if pass resume diet - Continue protonix and reglan #:Hyponatremia - Up trendingh 133 this am - IVF D/C - Continue to monitor electrolytes - Am labs ordered #Postobstructive Pneumonia #Leukocytosis - 01/26 B.cultX2 with no growth, 01/31 Tracheal aspirate pending - WBCs up from 11.1 to 14.2 - Patient is afebrile - Continue IV ABc cefepine - If leukocytosis persist and/or patient become febrile, consider ID consult #Endo: NAP - Avoid hypoglycemia --Atrial Fib, new onset, started amioderone drip, metoprolol, 2d echo, cardiac consultrd Echocardiogrammild LV enlargement, mild LVH, LVEF 40 to 45%. Not a candidate for anticoagulation, according to cardiology --Hyponatremia, likely related to lung mass, better/stable Daily clinical course: 01/28/21 Patient with postobstructive pneumonia. Right lung mass. For bronchoscopy and biopsy by Pulmonology. 01/29/21 Patient with right lung mass, weight loss. For bronchoscopy and biopsy on Sunday. 01/30/21 Patient with right lung mass. He is for bronchoscopy and biopsy tomorrow. 01/31/21 patient with right lung mass, left sided weakness. He is for bronchoscopy and biopsy today. MRI Brain:no acute changes, but chronic infarct left basal ganglia. Neurology was seeing him. 02/01/21- Patient was extubated to NC, AAO, follwing commands. Remains on low dose Levophed, plan to titrate gtt. If BP remains stable without the gtt plan to to transfer to floor this afternoon. 02/02: patient transferred to tele, wait for PT eval. cont supportive care 02/03/21: PT recommended ARNOLDO, CM consulted for placement. discussed plan of care with family at the bedtime 02/04/21: pending ARNOLDO, follow clinically, assess for home O2 requirement 02/05/21: pt converted to atrial fib, initiated on metoprolol 5mg iv q6h, start on amioderone drip. consult cardiology. LMWH was started for anticoagulation. 02/06/21: - patient is in sinus rhythm, start Metoprolol tartrate 25 mg q8hr (ordered for you); will discontinue Amiodarone gtt tomorrw morning if there is no recurred AF/AFL; check thyroid function and ECHO 02/07/21: remains on amioderone drip, not a candidate for AC per cardiology. Pt also need outpt lung biopsy with [facility] - family aware. follow clinically. plan to transition to amioderone to po, if clinically stable and clears by cardiology plan to d/c tomorrow with [facility] 02/08/2021: Patient is reportedly tolerating pureed diet but chest sounds congested. Swallowing reevaluation ordered. Vital signs stable maintaining sinus rhythm on metoprolol and oral amiodarone. Not a candidate for anticoagulation according to cardiology. On room air with diminished breath sounds in the right thorax. Anticipating discharge to subacute rehab tomorrow. Discussed with the nursing staff and comp field case manager 02/09/2021: Discharge disposition: Patient has been stable. He is tolerating his soft diet. He is on room air. Is fully alert and answers appropriately. No respiratory distress. Remains in sinus rhythm. Cardiology does not recommend anticoagulation due to having active lung mass. According to Dr. Ramos, senior internet sales consultant here, he has arranged follow-up with the [facility] for a lung biopsy and management of suspected cancer. He will see cardiology also in about 2 weeks for follow-up. We will continue amiodarone and Lopressor current doses. Disposition: [facility] Exam - Constitutional Vitals: Temp Pulse Resp BP Pulse Ox 98.0 F 85 18 133/85 95 02/09/21 08:04 02/09/21 08:04 02/09/21 08:04 02/09/21 08:04 02/09/21 08:04 General appearance: Present: no acute distress, disheveled, other (malnourished) - EENT Eyes: Present: PERRL, EOM intact ENT: hearing intact - Neck Neck: Present: supple - Respiratory Respiratory effort: normal Respiratory: right: diminished (Due to bronchial obstruction), left: CTA - Cardiovascular Rhythm: regular - Extremities Extremities: No edema - Abdominal General gastrointestinal: Present: soft, non-tender, non-distended, normal bowel sounds - Integumentary Integumentary: Absent: rash - Musculoskeletal Musculoskeletal: strength equal bilaterally - Psychiatric Psychiatric: appropriate mood/affect - Neurologic Neurologic: no focal deficits, other (Alert and oriented, normal speech,) Plan Activity: advance as tolerated Diet: low cholesterol, low salt Additional Instructions: Follow-up with [facility] for biopsy of right lung mass and management of suspected cancer. Dr. Idris Ramos from [facility] has arranged this appointment. Aspiration precautions, pureed diet as per ST recommendations Follow up with: PRIMARY MD ASHLEE [Primary Care Provider] - 3-5 Days ASHLEY GABRIEL MD [Staff Physician] - 14 Days Prescriptions: Aspirin [Aspirin BABY CHEW TAB] 81 mg PO QDAY #30 tab.chew Amiodarone [Cordarone 200 MG TAB] 200 mg PO DAILY #30 tablet Metoprolol [Lopressor TAB] 25 mg PO Q8H #90 tablet
[2021-02-09 17:01] VITALS: BP 101/75
== END 2021-02-09 18:00 | DRG 208 ==
LOC: ED 12:04 → 4A 13:39 → CC1 01-31 10:34 → 4A 02-01 21:08
PROVIDERS: ADMIT Internal Medicine; ATTEND Internal Medicine
PROC: 4A033R1 Measurement of Arterial Saturation, Peripheral, Percutaneous Approach (ICD-10-PCS; 2021-01-26)
PROC: 5A1935Z Respiratory Ventilation, Less than 24 Consecutive Hours (ICD-10-PCS; principal; 2021-01-31)
PROC: 0BH17EZ Insertion of Endotracheal Airway into Trachea, Via Natural or Artificial Opening (ICD-10-PCS; 2021-01-31)
PROC: 0BD38ZX Extraction of Right Main Bronchus, Via Natural or Artificial Opening Endoscopic, Diagnostic (ICD-10-PCS; 2021-01-31)
PROC: 0BB38ZX Excision of Right Main Bronchus, Via Natural or Artificial Opening Endoscopic, Diagnostic (ICD-10-PCS; 2021-01-31)
DX: J18.8 Other pneumonia, unspecified organism (principal); E43 Unspecified severe protein-calorie malnutrition; R09.2 Respiratory arrest; I48.0 Paroxysmal atrial fibrillation; E87.1 Hypo-osmolality and hyponatremia; D64.9 Anemia, unspecified; I48.91 Unspecified atrial fibrillation; Z68.1 Body mass index [BMI] 19.9 or less, adult; G43.909 Migraine, unspecified, not intractable, without status migrainosus; F17.200 Nicotine dependence, unspecified, uncomplicated; I10 Essential (primary) hypertension; D75.839 Thrombocytosis, unspecified; I95.9 Hypotension, unspecified; Z20.822 Contact with and (suspected) exposure to COVID-19; Z86.73 Personal history of transient ischemic attack (TIA), and cerebral infarction without residual deficits
CPT/HCPCS: 36415; 36600; 70450; 70496; 70498; 70551; 70553; 71045; 71275; 74176; 80048; 80053; 80061; 80202; 82140; 82803; 82962; 83735; 84443; 84484; 85025; 85027; 85610; 85652; 85730; 86038; 87040; 87070; 87205; 87641; 88112; 88161; 88305; 93005; 93306; 93880; 94002; 94003; 94760; G0378; A9575; C9113; J0171; J0282; J0692; J1170; J1644; J1650; J2060; J2250; J2704; J3010; J3370; J7030; J7040; J7050; J7060; Q9967; U0003